=== PATIENT | female | born 1965 | race Caucasian/White ===

== ENCOUNTER → 2016-09-20 | Day surgery (SDC) | payer BC ==
[2016-09-15 07:42] VITALS: Ht 165.1 cm; Wt 109.1 kg
[~2016-09-20] VITALS: Ht 165.1 cm; Wt 109.1 kg
[~2016-09-20] MED LIST: ADVIN50050 INH; ALBU1AER9 INH; ALBUTEROL 0.083% NEBU SOLN 3 ML VIAL INH STA; AMPH1TAB58 PO; ARIP1TAB8 PO; ATOR-22 PO; ATV/1 PO; CHOL20007 PO; CINN1CAP2 PO; CYM/30 PO; DULO60CA44 PO; GABA-113 PO; GLC/500 PO; KETAMINE HCL INJ 50 MG/ML 10 ML VIAL ONE; LABETALOL HCL IV 5 MG/ML 20ML ONE; LIDOCAINE HCL 2% 2 ML VIAL (20MG/ML) ONE; LVX100 PO; MECL1TAB42 PO; MEDR10TA PO; MELO15TA10 PO; MIDAZOLAM HCL 1 MG/ML 2ML VIAL ONE; MOME50SP5; NXM/40 PO; ONDANSETRON INJ 2 MG/ML 2 ML VIAL ONE; OXYM10TA6 PO; OXYM1TAB25 PO; PROPOFOL IV EMULSION 10 MG/ML 20 ML VIAL IV ONE; QUET1TAB91 PO; RANI300T2 PO; SODIUM CHLORIDE 0.9% 500ML 500 ML IV ONE; SODIUM CHLORIDE 0.9% INJ 10 ML VIAL ONE; TRMO2580 TOP; ZOLP10TA6 PO
--- NOTE | 2016-09-20 13:13 | Endo History and Physical ---
History & Physical Date of Service: Sep 20, 2016. Chief Complaint: IRON DEFICIENCY ANEMIA Referring Physician: DR. LISS GONZALEZ History of Present Illness RENATE for EGD/Colon Past Medical History Diabetes, Asthma, Anxiety, Reflux, Other, Depression Past Surgical History Hx Cardiac Surgery: No Hx Internal Defibrillator: No Hx Pacemaker: No Hx Abdominal Surgery: Yes (JONES, TUBAL LIGATION) Hx of Implantable Prosthesis: No Hx Post-Op Nausea and Vomiting: Yes Hx Cancer Surgery: No Hx Thoracic Surgery: No Hx Orthopedic: Yes (LEFT SHOULDER ARTHROSCOPY, CERVICAL DISCECTOMY) Hx Urinary Tract Surgery: Yes (LITHOTRIPSY) Family History None Social History Smoking Status: Never Smoker Hx Substance Use: No (SEE MED REC) Hx Alcohol Use: Yes (VERY RARELY) Allergies Coded Allergies: Fentanyl (Verified Allergy, Severe, SHORTNESS OF BREATH WITH PATCH-, ) 06/10/15: Pharmacist comment: is this an allergy or resp depression from excessive dose? Note-pt received fentanyl with 06/10/15 surgery without problem. aj [place] (Verified Allergy, Unknown, SWELLING, 09/20/16) Ragweed (Verified Allergy, Unknown, SEASONAL ALLERGIES, 09/20/16) Current Medications Reported Home Medications Medications Dose Route/Sig Max Daily Dose Days Date Category Dose Instructions Triamcinolone Acet 0.025% (Triamcinolone Acetonide (Topic) 0.025 % Oin 1 Appln TOP BID PRN 09/15/16 Reported Zantac (Ranitidine HCl) 300 Mg Tab 300 Mg PO HS 09/15/16 Reported Seroquel (Quetiapine Fumarate) 25 Mg Tab 3 Tab PO HS 09/15/16 Reported Opana Er (Crush Resistant (Oxymorphone Hcl) 20 Mg Tab 1 Tab PO Q12 09/15/16 Reported Opana (Oxymorphone Hcl) 10 Mg Tab 1 Tab PO Q6H PRN 09/15/16 Reported Mobic (Meloxicam) 15 Mg Tab 15 Mg PO DAILY 09/15/16 Reported Cymbalta (Duloxetine HCl) 30 Mg Cap 1 Cap PO DAILY 30 09/15/16 Reported Cymbalta (Duloxetine Hcl) 60 Mg Cap 60 Mg PO DAILY 09/15/16 Reported Adderall 5MG (Amphetamine-Dextroamphetamine 5MG) 1 Tab Tab 1 Tab PO BID 30 08/30/16 Reported Lipitor (Atorvastatin Calcium) 20 Mg Tab 1 Tab PO HS 30 05/12/16 Reported Vitamin D3 (Cholecalciferol) 2,000 Unit Tab 1 Tab PO WEEKLY 30 03/02/16 Reported Provera (Medroxyprogesterone Acetate) 10 Mg Tab 10 Mg PO DAILY X 12 DAYS 03/02/16 Reported TAKE EVERY OTHER MONTH Fluvoxamine Maleate 100 Mg Tab 150 Mg PO HS 06/01/15 Reported TAKES 1 1/2 TABS Cinnamon 500 Mg Cap 2 Cap PO DAILY 06/01/15 Reported Meclizine Hcl 25 Mg Tab 1 Tab PO TID PRN 01/11/15 Reported Abilify (Aripiprazole) 10 Mg Tab 1.5 Tabs PO QAM 01/11/15 Reported Zolpidem Tartrate 10 Mg Tab 1 Tab PO HS 01/11/15 Reported Glucophage (Metformin Hcl) 500 Mg Tab 1,000 Mg PO BID 01/11/15 Reported Neurontin (Gabapentin) 300 Mg Cap 600 Mg PO TID 01/11/15 Reported Proair Hfa (Albuterol) Aers 1-2 Puff INH Q4 PRN 01/11/15 Reported Nasonex (Mometasone Furoate) [place] 1 [place] NA DAILY PRN 01/11/15 Reported Ativan (Lorazepam) 1 Mg Tab 1 Mg PO TID PRN 01/02/12 Reported Advair Diskus 500/50 Mcg * (Salmeterol Xinafoate/Fluticasone) Aerp 1 Puff INH BID 06/30/10 Reported Nexium (Esomeprazole Magnesium) 40 Mg Capcr 40 Mg PO QAM 06/30/10 Reported Vital Signs Weight (Kilograms): 109.09 Height (Feet): 5 Height (Inches): 5 Date Time Temp Pulse Resp B/P Pulse Ox O2 Delivery O2 Flow Rate FiO2 09/20/16 12:48 36.8 106 20 145/76 95 Room Air 0 Physical Exam AAO x3 Nl s1s2 Lungs CTA Abd soft NT/ND + BS - CCE Assessment and Plan AAO x3 Nl s1s2 Lungs CTA Abd soft NT/ND + BS - CCE for EGD and colon today
--- NOTE | 2016-09-20 13:29 | GI REPORT ---
Procedure Date: 09/20/2016 12:46 PM Procedure: Upper GI endoscopy Indications: Iron deficiency anemia Medicines: Propofol per Anesthesia Complications: No immediate complications. Estimated blood loss: Minimal. Estimated Blood Loss: Estimated blood loss was minimal. Procedure: Pre-Anesthesia Assessment: - Prior to the procedure, a History and Physical was performed, and patient medications and allergies were reviewed. The patient's tolerance of previous anesthesia was also reviewed. The risks and benefits of the procedure and the sedation options and risks were discussed with the patient. All questions were answered, and informed consent was obtained. Prior Anticoagulants: The patient has taken no previous anticoagulant or antiplatelet agents. ASA Grade Assessment: III - A patient with severe systemic disease. After reviewing the risks and benefits, the patient was deemed in satisfactory condition to undergo the procedure. After obtaining informed consent, the endoscope was passed under direct vision. Throughout the procedure, the patient's blood pressure, pulse, and oxygen saturations were monitored continuously. The On-site loaner was introduced through the mouth, and advanced to the third part of duodenum. The upper GI endoscopy was accomplished without difficulty. The patient tolerated the procedure well. Findings: The examined esophagus was normal. The Z-line was irregular and was found 40 cm from the incisors. Localized mildly erythematous mucosa without bleeding was found in the gastric antrum. Estimated blood loss was minimal. Verification of patient identification for the specimen was done by the physician and atm technician using the patient's name and medical record number. The examined duodenum was normal. Biopsies for histology were taken with a cold forceps for evaluation of celiac disease. Estimated blood loss was minimal. Verification of patient identification for the specimen was done by the physician and atm technician using the patient's name and medical record number. The cardia and gastric fundus were normal on retroflexion. A small amount of food (residue) was found in the gastric body. Impression: - Normal esophagus. - Z-line irregular, 40 cm from the incisors. - Erythematous mucosa in the antrum. - Normal examined duodenum. Biopsied. - A small amount of food (residue) in the stomach. Recommendation: - Discharge patient to home (ambulatory). MD Brad Wiggins MD 09/20/2016 1:27:58 PM This report has been signed electronically. Note Initiated On: 09/20/2016 12:46 PM
--- NOTE | 2016-09-20 13:54 | GI REPORT ---
Procedure Date: 09/20/2016 12:45 PM Procedure: Colonoscopy Indications: Iron deficiency anemia Medicines: Propofol per Anesthesia Complications: No immediate complications. Estimated blood loss: None. Estimated Blood Loss: Estimated blood loss: none. Procedure: Pre-Anesthesia Assessment: - Prior to the procedure, a History and Physical was performed, and patient medications and allergies were reviewed. The patient's tolerance of previous anesthesia was also reviewed. The risks and benefits of the procedure and the sedation options and risks were discussed with the patient. All questions were answered, and informed consent was obtained. Prior Anticoagulants: The patient has taken no previous anticoagulant or antiplatelet agents. ASA Grade Assessment: III - A patient with severe systemic disease. After reviewing the risks and benefits, the patient was deemed in satisfactory condition to undergo the procedure. After I obtained informed consent, the scope was passed under direct vision. Throughout the procedure, the patient's blood pressure, pulse, and oxygen saturations were monitored continuously. The On-site loaner was introduced through the anus and advanced to the terminal ileum, with identification of the appendiceal orifice and IC valve. The colonoscopy was performed without difficulty. The patient tolerated the procedure well. The quality of the bowel preparation was fair. Findings: The perianal and digital rectal examinations were normal. Pertinent negatives include normal sphincter tone, no palpable rectal lesions and no anal lesion or abnormality was detected. The colon (entire examined portion) appeared normal. The terminal ileum appeared normal. The retroflexed view of the distal rectum and anal verge was normal and showed no anal or rectal abnormalities. Impression: - The entire examined colon is normal. - The examined portion of the ileum was normal. - The distal rectum and anal verge are normal on retroflexion view. - No specimens collected. Recommendation: - Discharge patient to home (ambulatory). - To visualize the small bowel, consider perform video capsule endoscopy. - Return to referring physician as previously scheduled. MD Brad Wiggins MD 09/20/2016 1:54:12 PM This report has been signed electronically. Note Initiated On: 09/20/2016 12:45 PM
--- NOTE | 2016-09-20 13:58 | Discharge Instructions ---
Endoscopy Patient Instructions Date / Procedure(s) Performed Sep 20, 2016. Colonoscopy, EGD Allergy Information Coded Allergies: Fentanyl (Verified Allergy, Severe, SHORTNESS OF BREATH WITH PATCH-, ) 06/10/15: Pharmacist comment: is this an allergy or resp depression from excessive dose? Note-pt received fentanyl with 06/10/15 surgery without problem. aj [place] (Verified Allergy, Unknown, SWELLING, 09/20/16) Ragweed (Verified Allergy, Unknown, SEASONAL ALLERGIES, 09/20/16) Discharge Date / Findings Sep 20, 2016. gastritis normal colon stephani Medication Instructions Stopped Medication(s): ADDERAL LAST DOSE 09/15/16 METFORM LAST DOSE 09/15/16 Restart Stopped Medication(s): Reported Home Medications Medications Dose Route/Sig Max Daily Dose Days Date Category Dose Instructions Triamcinolone Acet 0.025% (Triamcinolone Acetonide (Topic) 0.025 % Oin 1 Appln TOP BID PRN 09/15/16 Reported Zantac (Ranitidine HCl) 300 Mg Tab 300 Mg PO HS 09/15/16 Reported Seroquel (Quetiapine Fumarate) 25 Mg Tab 3 Tab PO HS 09/15/16 Reported Opana Er (Crush Resistant (Oxymorphone Hcl) 20 Mg Tab 1 Tab PO Q12 09/15/16 Reported Opana (Oxymorphone Hcl) 10 Mg Tab 1 Tab PO Q6H PRN 09/15/16 Reported Mobic (Meloxicam) 15 Mg Tab 15 Mg PO DAILY 09/15/16 Reported Cymbalta (Duloxetine HCl) 30 Mg Cap 1 Cap PO DAILY 30 09/15/16 Reported Cymbalta (Duloxetine Hcl) 60 Mg Cap 60 Mg PO DAILY 09/15/16 Reported Adderall 5MG (Amphetamine-Dextroamphetamine 5MG) 1 Tab Tab 1 Tab PO BID 30 08/30/16 Reported Lipitor (Atorvastatin Calcium) 20 Mg Tab 1 Tab PO HS 30 05/12/16 Reported Vitamin D3 (Cholecalciferol) 2,000 Unit Tab 1 Tab PO WEEKLY 30 03/02/16 Reported Provera (Medroxyprogesterone Acetate) 10 Mg Tab 10 Mg PO DAILY X 12 DAYS 03/02/16 Reported TAKE EVERY OTHER MONTH Fluvoxamine Maleate 100 Mg Tab 150 Mg PO HS 06/01/15 Reported TAKES 1 1/2 TABS Cinnamon 500 Mg Cap 2 Cap PO DAILY 06/01/15 Reported Meclizine Hcl 25 Mg Tab 1 Tab PO TID PRN 01/11/15 Reported Abilify (Aripiprazole) 10 Mg Tab 1.5 Tabs PO QAM 01/11/15 Reported Zolpidem Tartrate 10 Mg Tab 1 Tab PO HS 01/11/15 Reported Glucophage (Metformin Hcl) 500 Mg Tab 1,000 Mg PO BID 01/11/15 Reported Neurontin (Gabapentin) 300 Mg Cap 600 Mg PO TID 01/11/15 Reported Proair Hfa (Albuterol) Aers 1-2 Puff INH Q4 PRN 01/11/15 Reported Nasonex (Mometasone Furoate) [place] 1 [place] NA DAILY PRN 01/11/15 Reported Ativan (Lorazepam) 1 Mg Tab 1 Mg PO TID PRN 01/02/12 Reported Advair Diskus 500/50 Mcg * (Salmeterol Xinafoate/Fluticasone) Aerp 1 Puff INH BID 06/30/10 Reported Nexium (Esomeprazole Magnesium) 40 Mg Capcr 40 Mg PO QAM 06/30/10 Reported Reported Home Medications Medications Dose Route/Sig Max Daily Dose Days Date Category Dose Instructions Triamcinolone Acet 0.025% (Triamcinolone Acetonide (Topic) 0.025 % Oin 1 Appln TOP BID PRN 09/15/16 Reported Zantac (Ranitidine HCl) 300 Mg Tab 300 Mg PO HS 09/15/16 Reported Seroquel (Quetiapine Fumarate) 25 Mg Tab 3 Tab PO HS 09/15/16 Reported Opana Er (Crush Resistant (Oxymorphone Hcl) 20 Mg Tab 1 Tab PO Q12 09/15/16 Reported Opana (Oxymorphone Hcl) 10 Mg Tab 1 Tab PO Q6H PRN 09/15/16 Reported Mobic (Meloxicam) 15 Mg Tab 15 Mg PO DAILY 09/15/16 Reported Cymbalta (Duloxetine HCl) 30 Mg Cap 1 Cap PO DAILY 30 09/15/16 Reported Cymbalta (Duloxetine Hcl) 60 Mg Cap 60 Mg PO DAILY 09/15/16 Reported Adderall 5MG (Amphetamine-Dextroamphetamine 5MG) 1 Tab Tab 1 Tab PO BID 30 08/30/16 Reported Lipitor (Atorvastatin Calcium) 20 Mg Tab 1 Tab PO HS 30 05/12/16 Reported Vitamin D3 (Cholecalciferol) 2,000 Unit Tab 1 Tab PO WEEKLY 30 03/02/16 Reported Provera (Medroxyprogesterone Acetate) 10 Mg Tab 10 Mg PO DAILY X 12 DAYS 03/02/16 Reported TAKE EVERY OTHER MONTH Fluvoxamine Maleate 100 Mg Tab 150 Mg PO HS 06/01/15 Reported TAKES 1 1/2 TABS Cinnamon 500 Mg Cap 2 Cap PO DAILY 06/01/15 Reported Meclizine Hcl 25 Mg Tab 1 Tab PO TID PRN 01/11/15 Reported Abilify (Aripiprazole) 10 Mg Tab 1.5 Tabs PO QAM 01/11/15 Reported Zolpidem Tartrate 10 Mg Tab 1 Tab PO HS 01/11/15 Reported Glucophage (Metformin Hcl) 500 Mg Tab 1,000 Mg PO BID 01/11/15 Reported Neurontin (Gabapentin) 300 Mg Cap 600 Mg PO TID 01/11/15 Reported Proair Hfa (Albuterol) Aers 1-2 Puff INH Q4 PRN 01/11/15 Reported Nasonex (Mometasone Furoate) [place] 1 [place] NA DAILY PRN 01/11/15 Reported Ativan (Lorazepam) 1 Mg Tab 1 Mg PO TID PRN 01/02/12 Reported Advair Diskus 500/50 Mcg * (Salmeterol Xinafoate/Fluticasone) Aerp 1 Puff INH BID 06/30/10 Reported Nexium (Esomeprazole Magnesium) 40 Mg Capcr 40 Mg PO QAM 06/30/10 Reported Provider Instructions Activity Restrictions - No exercising or heavy lifting for 24 hours. - Do not drink alcohol the day of the procedure. - Do not drive a car or operate machinery until the day after the procedure. - Do not make any important decisions or sign important papers in 24 hours after the procedure. Following Day: - Return to full activity which may include returning to work/school. Diet Start your diet with liquids and light foods (jello, soup, juice, toast). Then eat your usual diet if not nauseated. Treatment For Common After Affects For mild abdominal pain, bloating, or excessive gas: - Rest - Eat lightly - Lie on right side Follow-Up Information Follow-up with DR. LISS GONZALEZ as scheduled Anesthesia Information What You Should Know You have had a procedure that required some medicine to reduce anxiety and discomfort. This treatment is called moderate sedation. After receiving the treatment, you may be sleepy, but you will be able to breathe on your own. The effects of the treatment may last for several hours. Follow these instructions along with Activity/Diet recommendations noted above: * Do NOT do anything where dizziness or clumsiness would be dangerous. * Rest quietly at home today, then you can be up and about tomorrow. * Have a responsible person stay with you the rest of today. * You may have had an I.V. today. If so, you may take the dressing off later today. Recommendations Call your doctor if: * Trouble breathing * Continuous vomiting for more than 24 hours * Temperature above 101 degrees * Severe abdominal pain or bloating * Pain not relieved by pain medicine ordered * There is increased drainage or redness from any incision * A large amount of rectal bleeding greater than 2-3 tablespoons. (If you had a polyp/s removed or have hemorrhoids, a small amount of blood - from the rectum is to be expected.) * You have any unanswered questions or concerns. IN THE EVENT OF A SERIOUS EMERGENCY, GO TO THE NEAREST EMERGENCY ROOM Your discharge instructions were prepared by provider Brad Vicente. Patient Instructions Signature Page Katarina Jain Patient (or Guardian) Signature/Date: I have read and understand the instructions given to me by my caregivers. Caregiver/RN/Doctor Signature/Date: The above-named patient and/or guardian has received patient instructions on this date. + Original Patient Signature Page (only) stays with chart. Please make copy for patient.
[2016-09-20 15:20] VITALS: PULSE 90; O2SAT 90
--- NOTE | 2016-09-20 17:13 | Anesthesiology Progress Note ---
Anesthesia Post Op Note Date & Time Sep 20, 2016 at 16:46 Vital Signs Pain Intensity: 0 Vital Signs Past 12 Hours Date Time Temp Pulse Resp B/P Pulse Ox O2 Delivery O2 Flow Rate FiO2 09/20/16 16:20 36.8 92 18 131/62 91 Room Air 09/20/16 16:00 86 18 136/63 90 Room Air 09/20/16 15:30 89 18 131/63 92 Room Air 09/20/16 15:20 90 16 90 Room Air 09/20/16 15:00 36.8 89 18 130/64 4 Nasal Cannula 3 09/20/16 14:40 89 18 137/63 96 Nasal Cannula 3 09/20/16 14:25 86 18 137/63 88 Room Air 09/20/16 14:11 36.8 88 18 163/89 98 Room Air 0 09/20/16 13:56 94 18 157/82 98 Room Air 0 09/20/16 12:48 36.8 106 20 145/76 95 Room Air 0 Notes Mental Status: alert / awake / arousable, participated in evaluation Pt Amnestic to Procedure: Yes Nausea / Vomiting: adequately controlled Pain: adequately controlled Airway Patency, RR, SpO2: stable & adequate BP & HR: stable & adequate Hydration State: stable & adequate Anesthetic Complications: no major complications apparent The patient is a 51 y/o female with a h/o Asthma, GERD, IBS, OA, cervicalgia, chairi malformation, chronic pain with limited mobility, DM, anemia, obesity, anxiety and depression s/p EGD/colonoscopy with Dr. Vicente. The patient's baseline oxygen saturation preop was 95% on RA. During the procedure she did well overall although she did obstruct during the EGD requiring some jaw thrust. In recovery, she initially required 3Lnc to maintain her oxygen saturation as she would desaturate to the low 80s without it. Her lungs were clear to auscultation bilaterally and she denied any shortness of breath, however she appears to be a shallow breather. Once she was encourage to take deep breaths her oxygen saturation would immediately improve to the mid 90s. She was given a Duoneb due to her history of Asthma as well as an incentive spirometer. She was able to achieve 1750cc on the spirometer. The patient was weaned off of oxygen. Her saturation when awake is staying between 90-95%, however occasionally she will drop precipitously to the low 80s. Her saturation will immediately improve with deep breathing. When she falls asleep her oxygen saturation again drops to the 80s. In speaking to her family they state that she snores when she sleeps. She also has a hard time staying asleep and does not get very much sleep at all and is often lethargic all day. I explained to the patient that looking at her airway anatomy and how she responded to anesthesia that I believe she likely does have some sleep apnea. I spoke to Dr. Pope with the internal medicine service and he will be coming to evaluate the patient. He may have the patient stay overnight to monitor her oxygen saturation and perform a sleep study. I mentioned this to the patient and her family and they were agreeable. Dr. Aponte was given a full report and will be following up with the patient Dr. Pope when he comes to the bedside to evaluate the patient.
--- NOTE | 2016-09-20 18:04 | Anesthesiology Progress Note ---
Anesthesia Progress Note Date of Service Sep 20, 2016. Progress Notes I have received report from Dr Jackelin Feliz regarding this patient. Patient is awake;pulse oximetry saturations are up to 96% on RA,as I have observed.Pt has ambulated to [facility] .Vital signs are stable.Pt may be discharged to home.
[2016-09-20 18:10] VITALS: BP 138/68; PULSE 88; TEMP 36.8; O2SAT 96
== END | disposition home or self-care (01) ==
LOC: C.GI 12:08
PROVIDERS: ATTEND Internal Medicine Gastroenterology
DX: D50.9 Iron deficiency anemia, unspecified (principal); E11.9 Type 2 diabetes mellitus without complications; J45.909 Unspecified asthma, uncomplicated; F32.9 Major depressive disorder, single episode, unspecified; Z98.51 Tubal ligation status; Z98.890 Other specified postprocedural states; F41.9 Anxiety disorder, unspecified; Z68.41 Body mass index [BMI] 40.0-44.9, adult; Z90.49 Acquired absence of other specified parts of digestive tract

== ENCOUNTER → 2016-10-02 | Outpatient (CLI) | payer BC ==
[~2016-10-02] MED LIST changes: -ALBUTEROL 0.083% NEBU SOLN 3 ML VIAL INH STA; -KETAMINE HCL INJ 50 MG/ML 10 ML VIAL ONE; -LABETALOL HCL IV 5 MG/ML 20ML ONE; -LIDOCAINE HCL 2% 2 ML VIAL (20MG/ML) ONE; -MIDAZOLAM HCL 1 MG/ML 2ML VIAL ONE; -ONDANSETRON INJ 2 MG/ML 2 ML VIAL ONE; -PROPOFOL IV EMULSION 10 MG/ML 20 ML VIAL IV ONE; -SODIUM CHLORIDE 0.9% 500ML 500 ML IV ONE; -SODIUM CHLORIDE 0.9% INJ 10 ML VIAL ONE
[2016-10-02 17:28] LABS: BASO % 0.4 %; BASO ABS # 0.04 K/uL (0-0.2); COMPLETE YES; EOS % 3.4 %; HEMATOCRIT 33.2 % (37-47); IG% 0.2 %; LYMPH % 27.7 %; LYMPH ABS # 2.72 K/uL (1.2-3.4); MEAN CORPUSCULAR HEMOGLOBIN 26.9 pg (25-34); MEAN CORPUSCULAR HGB CONC 32.8 g/dl (32-36); MEAN PLATELET VOLUME 9.1 fL (7.4-10.4); MONO % 5.7 %; NEUT % 62.6 %; PLATELET COUNT 268 K/uL (130-400); RED BLOOD COUNT 4.05 M/uL (4.2-5.4); WHITE BLOOD COUNT 9.83 K/uL (4.8-10.8)
== END | disposition home or self-care (01) ==
LOC: C.LABBFT 12:56
PROVIDERS: ATTEND Nurse Practitioner
DX: D72.829 Elevated white blood cell count, unspecified (principal)

== ENCOUNTER → 2016-12-08 | Outpatient (CLI) | payer BC ==
[~2016-12-08] VITALS: Ht 165.1 cm; Wt 111.8 kg
[2016-12-08 15:39] VITALS: BP 121/85; PULSE 111; Ht 165.1 cm; Wt 111.8 kg
== END | disposition home or self-care (01) ==
LOC: C.NEUR 14:26
PROVIDERS: ATTEND Internal Medicine Pulmonary Disease
DX: R09.02 Hypoxemia (principal); Z98.890 Other specified postprocedural states; R06.83 Snoring; R53.83 Other fatigue; G47.21 Circadian rhythm sleep disorder, delayed sleep phase type

== ENCOUNTER → 2017-01-23 | Outpatient (CLI) | payer BC ==
--- NOTE | 2017-01-23 16:01 | SPLIT NIGHT TECHNICIAN REPORT ---
[facility] Split Night Polysomnogram - Shove Up Report Study date: 01/23/2017 Referring Physician: aSrath Coombs M.D. Name: ZAY ARCHULETA Shove Up: Temitope Gray [facility]. Date of : 1965 Height: 52 years, Height 5' 5" Sex: Female Weight: 246 lbs Age: 52 Neck Circum:16.5 in BMI: Medications: 40.93 Please see list in H&P Patient History Patient has a history of being tired all the time and not sleeping well. She stated that she has a lot of medical problems and she spends most of the day in bed. She has been told that she snores, but no apnea has been reported. She sleeps the most when her gets home from work at 7am. They usually sleep from 8am until 2pm. She had a colonoscopy done and during the procedure, her SaO2 dropped many times. Varney Sleepiness Scale is 5. neck circumference is 16.5 inches Parameters Monitored NPSG: E1-M2, E2-M1, Fp1-M2, Fp2-M1, F3-M2, F4-M2, F4-M1, C3-M2, C4-M2, C4-M1, O1-M2, O2-M2, O2-M1, T3-M2, T4-M1, P3-M2, P4-M1, CHIN1, CHIN2, HR, EKG, Legs, PFLOW, SNOR, FLOW, CFLOW, Tidal Volume, THOR, ABDO, SpO2, PLTH, CPRESS, ETCO2 Wave, ETCO2, pH SLEEP SUMMARY DATA DIAGNOSTIC TREATMENT Lights Out: 7:57:58 AM 10:34:28 AM Lights On: 10:19:58 AM 3:14:58 PM Total Recording Time (TRT): 142.5 min. 281.5 min. Total Sleep Time (TST): 130.5 min. 268.5 min. NREM Time: 130.5 min. 243.5 min. REM Time: 0.0 min. 25.0 min. Sleep Period Time (SPT): 135.5 min. 278.0 min. Sleep Efficiency (SE): 92 % 96 % Sleep Latency: 6.0 min. 2.5 min. Arousal Index: 0.5 2.0 PAP Treatment Levels: 5, 7, 9, 10, 8/4, 10/5, 12/6, 14/8, 15/10, 16/10, 17/12 * Optimal Pressure(s) SLEEP STAGING DATA DIAGNOSTIC TREATMENT Duration (min) TST % Duration (min) TST % Stage Wake: 12.0 min. -- 12.5 min. -- WASO: 5.5 min. -- 9.5 min. -- NREM: 130.5 min. 100 % 243.5 min. 91 % Stage N1: 14.5 min. 11 % 12.5 min. 5 % Stage N2: 116.0 min. 89 % 200.0 min. 74 % Stage N3: 0.0 min. 0 % 31.0 min. 12 % REM: 0.0 min. 0 % 25.0 min. 9 % POSITIONAL DATA Event Count Index Event Count Index Supine: N/A N/A N/A N/A Supine NREM: N/A N/A N/A N/A Supine REM: N/A N/A N/A N/A Non-Supine: 205 94.3 273 61.0 Non-Supine NREM: 205 94.3 263 64.8 Non-Supine REM: N/A N/A 10 24.0 AROUSAL SUMMARY DATA: Event Count Index Event Count Index Apnea Arousals: 1 64.4 0 22.1 Hypopnea Arousals: 0 0.0 1 0.2 Snore Arousals: 0 0.0 1 0.2 PLM Arousals: 0 0.0 0 0.0 Non-Specific Arousals: 0 0.0 6 1.3 Total Arousals: 1 0.5 9 2.0 MYOCLONUS (PLM) Event Count Index Event Count Index PLM: 0 0.0 23 5.1 PLM AROUSAL: 0 0.0 0 0.0 PLM W/O AROUSAL 0 0.0 23 5.1 PLM W/RESP EVENT 0 0.0 0 0.0 MYOCLONUS (PLM) Event Count Index Event Count Index LM: 0 17.0 78 17.4 LM AROUSAL: 0 0.0 1 0.2 LM W/O AROUSAL LM W/RESP EVENT LM NON SPECIFIC 35 16.1 90 20.1 HEART RATE DATA DIAGNOSTIC TREATMENT Sleep (bpm): 103 98 REM (bpm): N/A 89 NREM (bpm): 86 90 Tachycardia Count: 0 0 Tachycardia Duration: 0.00 0 Bradycardia Count: 0 0 Bradycardia Duration: 0.00 0 DIAGNOSTIC PORTION TREATMENT PORTION RESPIRATORY DATA Event Count Index Event Count Index AHI: -- 94.3 -- 61.0 RDI: -- 94.3 -- 61 Obstructive Apnea: 12 5.5 4 0.9 Central Apnea: 109 50.1 65 14.5 Mixed Apnea: 19 8.7 30 6.7 Hypopnea: 65 29.9 174 38.9 RERA: 0 0.0 0 0.0 Total Apneas: 140 64.4 99 22.1 RESPIRATORY DATA REM NREM SLEEP REM NREM SLEEP Supine Position: Obstructive Apneas: N/A N/A N/A N/A N/A N/A Central Apneas: N/A N/A N/A N/A N/A N/A Mixed Apneas: N/A N/A N/A N/A N/A N/A Hypopneas: N/A N/A N/A N/A N/A N/A RERA N/A N/A N/A N/A N/A N/A Total Supine Events: N/A N/A N/A N/A N/A N/A Supine AHI: N/A N/A N/A N/A N/A N/A Supine RDI: N/A N/A N/A N/A N/A N/A REM NREM SLEEP REM NREM SLEEP Non-Supine Position: Obstructive Apneas: N/A 12 12 0 4 4 Central Apneas: N/A 109 109 5 60 65 Mixed Apneas: N/A 19 19 0 30 30 Hypopneas: N/A 65 65 5 169 174 RERA N/A 0 0 0 0 0 Total Supine Events: N/A 205 205 10 263 273 Supine AHI: N/A 94.3 94.3 24.0 64.8 61.0 Supine RDI: N/A 94.3 94.3 24.0 64.8 61.0 OXYGEN DESTAURATION DATA: Event Count Index Event Count Index REM Desaturations: N/A N/A 15 36.0 NREM Desaturations: 423 194.5 405 99.8 SNORE DATA DIAGNOSTIC TREATMENT Snore Time: 12.1 10:36:58 AM Snore TST%: 5 1 Snore Arousal Count: 0 1 Snore Arousal Index: 0.0 0.2 Desaturation Event Summary: Minimum %SpO2 Event Count Mean/Min/Max Duration(sec.) Desaturation Index % Time In Bed > 90 553 10.6 / 4.0 / 45.5 272.3 28.9 86 - 90 586 9.3 / 4.0 / 46.5 167.7 49.7 81 - 85 78 8.6 / 4.0 / 43.0 58.7 18.9 76 - 80 4 5.2 / 5.0 / 5.5 22.0 2.6 71 - 75 0 N/A 0.0 0.0 66 - 70 0 N/A 0.0 0.0 61 - 65 0 N/A 0.0 0.0 56 - 60 0 N/A 0.0 0.0 51 - 55 0 N/A 0.0 0.0 < 50 0 N/A 0.0 0.0 OXYGEN SATURATION DATA DIAGNOSTIC TREATMENT SpO2 Mean Sleep: 86 % 90 % SpO2 Mean REM: N/A % 89 % SpO2 Mean NREM: 86 % 90 % SpO2 Minimum Sleep: 74 % 76 % SpO2 Minimum REM: N/A % 77 % SpO2 Minimum NREM: 74 % 76 % Time Below 90% (TST): 108.9 108.7 Time Below 88% (TST): 88.9 46.0 Total REM NREM Awake <50% 0.0 min. 0.0 min. 0.0 min. 0.0 min. 51 - 60% 0.0 min. 0.0 min. 0.0 min. 0.0 min. 61 - 70% 0.0 min. 0.0 min. 0.0 min. 0.0 min. 71 - 80% 11.0 min. 0.4 min. 10.2 min. 0.4 min. 81 - 90% 289.4 min. 20.1 min. 252.9 min. 16.5 min. 91 - 100% 121.9 min. 4.6 min. 110.9 min. 6.4 min. Average 88 89 88 88 Minimum SpO2 74 77 74 78 Desaturation Event Index 119.7 36.0 132.8 7.7 # Desat. Events below 89% 825 15 810 0 Time(%) with Saturation below 89% 42.4 2.2 37.3 2.9 Time(min.) with Saturation below 89% 179.1 9.4 157.5 12.2 Recording Shove Up Comments: Ms. Archuleta slept on her right side the entire study. No bruxism or arrhythmias were noted. Snoring was scored as a 3 (on a scale of 0-5, where 0=no snoring to 5= snoring loud enough to be heard through the door or down the syed). Patient had central apneas as soon as she fell asleep, which was very quickly. By 10:15am, Ms. Archuleta met specific Split-Night criteria during the diagnostic portion of study. C-pap was started at a pressure of +5cmH2O and up-titrated to a pressure of +[id number], she continued to have near constant central or mixed apneas. Bi-pap was then tried, starting at a pressure of +8/4 and up-titrated to a pressure of +17/12 with a rate of 12 being added at 11:49am to help treat central apneas. Patient tolerated treatment very well, but still continued to have events, even on the high pressure of +17/12 and rate of 12. I did not feel as if patient would be able to tolerate a much higher pressure and she seemed to sleep well at this pressure and her SaO2 remained around 90% most of the time at these settings. She entered REM quickly, once treatment was initiated and also entered deep sleep at the end of the study. She had the least amount of events during those 2 stages of sleep. Patient may also benefit from supplemental O2. During her most stable times, her SaO2 ran around 90%. A Resmed AirFit F10 full face mask size medium was used during titration. Ms. Archuleta stated "I slept better than I normally do." The final report will be interpreted and signed by a sleep physician. The completed physician report will then be placed in the patient medical record. Therapy Event: Therapy (cm H20) 0 5 7 9 10 8/4 Total Time at Pressure (min.) 142.0 9.8 8.1 11.8 25.9 13.7 TST at Pressure (min.) 130.5 7.3 8.1 11.8 25.9 13.7 # Periods 1 1 1 1 1 1 Sleep Onset (min.) 6.0 2.5 0.0 0.0 0.0 0.0 REM Onset (min.) N/A N/A N/A N/A 13.8 0.0 Sleep Efficiency % 91 74 100 100 100 100 Wakefulness (%) 8.1 25.6 0.0 0.0 0.0 0.0 Wakefulness (min.) 11.5 2.5 0.0 0.0 0.0 0.0 NREM 1 (%) 10.2 28.3 9.1 0.0 7.7 5.5 NREM 1 (min.) 14.5 2.8 0.7 0.0 2.0 0.8 NREM 2 (%) 81.7 46.1 90.9 100.0 45.5 0.0 NREM 2 (min.) 116.0 4.5 7.4 11.8 11.8 0.0 NREM 3 (%) 0.0 0.0 0.0 0.0 0.0 0.0 NREM 3 (min.) 0.0 0.0 0.0 0.0 0.0 0.0 REM (%) 0.0 0.0 0.0 0.0 46.7 94.5 REM (min.) 0.0 0.0 0.0 0.0 12.1 12.9 # Arousals 1 1 0 0 1 0 Arousal Index 0.5 8.3 0.0 0.0 2.3 0.0 # Snore 581 3 5 8 5 1 Snore Index 267.1 24.8 37.0 40.5 11.6 4.4 AHI 94.3 157.0 184.8 162.0 74.3 35.1 AHI Supine N/A N/A N/A N/A N/A N/A AHI Non-Supine 94.3 157.0 184.8 162.0 74.3 35.1 NREM AHI 94.3 157.0 184.8 162.0 130.7 0.0 REM AHI N/A N/A N/A N/A 9.9 37.2 RDI 94.3 157.0 184.8 162.0 74.3 35.1 # Obstructive 12 0 1 1 2 0 # Central Ap 109 12 12 16 16 3 # Mixed 19 2 11 12 4 0 # Hypopneas 65 5 1 3 10 5 RERAS 0 0 0 0 0 0 Total Respiratory Events 205 19 25 32 32 8 Time Below SpO2 89.00% (min.) 98.9 3.3 3.1 3.7 5.6 7.2 Mean NREM SpO2 (%) 86 89 89 90 90 91 Mean REM SpO2 (%) N/A N/A N/A N/A 89 88 Mean Sleep SpO2 (%) 86 89 89 90 90 88 Min NREM SpO2 (%) 74 82 81 83 83 87 Min REM SpO2 (%) N/A N/A N/A N/A 77 77 Position Supine (min.) 0.0 0.0 0.0 0.0 0.0 0.0 Position Non-supine (min.) 130.5 7.3 8.1 11.8 25.9 13.7 LM Index Sleep 17.0 0.0 0.0 15.2 58.0 48.3 LM Index NREM 17.0 0.0 0.0 15.2 30.5 0.0 LM Index REM N/A N/A N/A N/A 89.4 51.1 Mean Heart Rate (bpm) 103 99 97 100 101 103 Min Heart Rate (bpm) 85 84 82 84 82 91 Therapy (cm H20) 10/5 12/6 14/8 15/10 16/10 17/12 Total Time at Pressure (min.) 13.0 21.3 9.8 26.2 17.2 123.8 TST at Pressure (min.) 12.5 21.3 9.8 20.2 17.2 120.8 # Periods 1 1 1 1 1 1 Sleep Onset (min.) 0.0 0.0 0.0 0.0 0.0 0.0 REM Onset (min.) N/A N/A N/A N/A N/A N/A Sleep Efficiency % 96 100 100 77 100 97 Wakefulness (%) 3.8 0.0 0.0 22.9 0.0 2.4 Wakefulness (min.) 0.5 0.0 0.0 6.0 0.0 3.0 NREM 1 (%) 9.6 0.0 0.0 7.6 0.0 2.4 NREM 1 (min.) 1.2 0.0 0.0 2.0 0.0 3.0 NREM 2 (%) 86.6 100.0 100.0 69.4 100.0 70.1 NREM 2 (min.) 11.3 21.3 9.8 18.2 17.2 86.8 NREM 3 (%) 0.0 0.0 0.0 0.0 0.0 25.0 NREM 3 (min.) 0.0 0.0 0.0 0.0 0.0 31.0 REM (%) 0.0 0.0 0.0 0.0 0.0 0.0 REM (min.) 0.0 0.0 0.0 0.0 0.0 0.0 # Arousals 1 0 0 1 0 5 Arousal Index 4.8 0.0 0.0 3.0 0.0 2.5 # Snore 9 16 4 20 2 16 Snore Index 43.2 45.0 24.5 59.5 7.0 7.9 AHI 163.2 140.7 85.7 101.2 34.9 7.5 AHI Supine N/A N/A N/A N/A N/A N/A AHI Non-Supine 163.2 140.7 85.7 101.2 34.9 7.5 NREM AHI 163.2 140.7 85.7 101.2 34.9 7.5 REM AHI N/A N/A N/A N/A N/A N/A RDI 163.2 140.7 85.7 101.2 34.9 7.5 # Obstructive 0 0 0 0 0 0 # Central Ap 6 0 0 0 0 0 # Mixed 1 0 0 0 0 0 # Hypopneas 27 50 14 34 10 15 RERAS 0 0 0 0 0 0 Total Respiratory Events 34 50 14 34 10 15 Time Below SpO2 89.00% (min.) 6.8 10.4 3.7 7.2 4.4 12.6 Mean NREM SpO2 (%) 87 88 89 89 90 90 Mean REM SpO2 (%) N/A N/A N/A N/A N/A N/A Mean Sleep SpO2 (%) 87 88 89 89 90 90 Min NREM SpO2 (%) 76 82 82 82 84 82 Min REM SpO2 (%) N/A N/A N/A N/A N/A N/A Position Supine (min.) 0.0 0.0 0.0 0.0 0.0 0.0 Position Non-supine (min.) 12.5 21.3 9.8 20.2 17.2 120.8 LM Index Sleep 4.8 14.1 30.6 20.8 17.4 19.4 LM Index NREM 4.8 14.1 30.6 20.8 17.4 19.4 LM Index REM N/A N/A N/A N/A N/A N/A Mean Heart Rate (bpm) 99 99 98 96 97 97 Min Heart Rate (bpm) 83 83 86 84 85 82
--- NOTE | 2017-01-24 16:44 | POLYSOMNOGRAPH REPORT ---
CLINICAL DATA: A 52-year-old female with BMI of 40.9 referred by myself and Dr. Webber. She has fatigue and poor quality sleep. She has multiple medical problems. She takes narcotics for chronic pain. She usually sleeps during the day when her gets home from work at 7 a.m. She does snore, but he has not reported apnea. She recently had colonoscopy and had severe desaturation intermittently. This was a split night study. SLEEP ARCHITECTURE: For the diagnostic portion of the study, total sleep period was 135.5 minutes. Total sleep time was 130.5 minutes, all non-REM sleep. Sleep latency was 6 minutes. Arousal index was 0.5. Sleep efficiency was 92%. Sleep consisted of stage N1 11%, N2 89%. For the treatment portion of the study, total sleep period was 278 minutes. Total sleep time was 268.5 minutes divided between 243.5 minutes of non-REM sleep and 25 minutes of REM sleep. Sleep onset latency was 2.5 minutes. Sleep efficiency was 96%. Arousal index was 2. Sleep consisted of Stage N1 5%, N2 74%, N3 12%, REM 9%. AROUSAL DATA: Prior to treatment 1 arousal was recorded for an index of 0.5 per hour. During treatment, 9 arousals were recorded for an index of 2 per hour. PLM DATA: Prior to treatment, 35 limb movements were noted for an index of 16.1 per hour. During treatment, 90 limb movements were noted for an index of 28.1 per hour. EKG: Heart rates ranged from 86 to 103 beats per minute. No arrhythmias were noted. RESPIRATORY DATA: Prior to treatment, very severe sleep apnea/hypopnea was documented. The AHI was 94.3. There were 12 obstructive, 109 central, and 12 mixed apneic episodes. There were 65 hypopneic episodes. The average AHI with treatment was 61. There were 4 obstructive, 65 central, and 30 mixed apneic episodes. There 174 hypopneic episodes. OXIMETRY DATA: Significant nocturnal hypoxemia was seen prior to treatment. Oxygen lesvia prior to treatment was 74% during non-REM sleep. The mean saturation for the treatment was 90%. RESIDENT CARE ASSISTANT'S COMMENTS AND TREATMENT SUMMARY: The patient slept on her right side the entire time. Snoring was moderate, rated 3 on a scale of 1 through 5. She had central apneic episodes as soon as she fell asleep. By 10:15 a.m. she met split night criteria. CPAP was started and titrated up to 10 cm of water pressure. However, she had constant central or mixed apneic episodes. BiPAP was tried starting with 8/4 and then titrating up to 17/12 with a backup rate of 12. She continued to have central apneic episodes even at that pressure setting and rate. The patient did not feel that she could tolerate a higher pressure and seemed to sleep well at the final pressure setting. A ResMed AirFit F10 full facemask size medium was used. She awoke feeling better than she normally does. At her final pressure setting of BiPAP 17/12 with a backup rate of 12, she had an AHI of 7.5. She slept at that level for 120.8 minutes. IMPRESSION: Very severe sleep apnea both central and obstructive consistent with complex/central sleep apnea with a diagnostic AHI of 94.3, improved with BiPAP 17/12, backup rate of 12 using a ResMed AirFit F10 full face mask, size medium. RECOMMENDATIONS: The ultimate treatment for central sleep apnea due to narcotics is reduction of narcotic dose. It is not clear whether that can be performed in this patient. She did do well with BiPAP 17/12 with a backup rate of 12. Treatment with this regimen may be of benefit. Clinical correlation is needed. MTDD
== END | disposition home or self-care (01) ==
LOC: C.NEUR 07:30
PROVIDERS: ATTEND Internal Medicine Pulmonary Disease
DX: G47.21 Circadian rhythm sleep disorder, delayed sleep phase type (principal); R53.83 Other fatigue; R09.02 Hypoxemia; R06.83 Snoring; Z98.890 Other specified postprocedural states; G47.33 Obstructive sleep apnea (adult) (pediatric)

== ENCOUNTER → 2017-01-30 | Outpatient (CLI) | payer BC ==
[~2017-01-30] VITALS: Ht 165.1 cm; Wt 115.1 kg
[2017-01-30 16:13] VITALS: BP 131/83; PULSE 112; Ht 165.1 cm; Wt 115.1 kg
== END | disposition home or self-care (01) ==
LOC: C.NEUR 15:06
PROVIDERS: ATTEND Internal Medicine Pulmonary Disease
DX: G47.31 Primary central sleep apnea (principal); J45.909 Unspecified asthma, uncomplicated; R53.83 Other fatigue; G47.21 Circadian rhythm sleep disorder, delayed sleep phase type

== ENCOUNTER → 2017-02-01 | Outpatient (CLI) | payer BC ==
[2017-02-01 17:45] LABS: URINE APPEARANCE CLEAR (CLEAR); URINE BILIRUBIN NEG (NEG); URINE COLOR YELLOW; URINE EPITHELIAL CELL AUTO >30 /lpf (0-5); URINE NITRITE NEG (NEG); URINE PH 7.5 (4.5-7.5); URINE SPECIFIC GRAVITY 1.007 (1.000-1.030); UROBILINOGEN NEG (NEG); ZZUR CULT IF INDIC CLEAN CATCH NO
[2017-02-01 17:56] LABS: ALT/SGPT 17 U/L (12-78); AST/SGOT 10 U/L (15-37); BLOOD UREA NITROGEN 9 mg/dl (7-18); BUN/CREATININE RATIO 11.8 (10-20); CARBON DIOXIDE 31 mmol/L (21-32); CHLORIDE 101 mmol/L (98-107); CREATININE 0.73 mg/dl (0.60-1.20); GLUCOSE 129 mg/dl (70-99); POTASSIUM 3.9 mmol/L (3.5-5.1); SODIUM 141 mmol/L (136-145)
[2017-02-01 17:57] LABS: ALB/GLOB RATIO 0.8 (0.9-2); ALKALINE PHOSPHATASE 70 U/L (45-117); CHOLESTEROL 150 mg/dl (0-200); CHOLESTEROL/HDL RATIO 2.1; HDL CHOLESTEROL 73 mg/dl; LDL CHOLESTEROL CALCULATED 45 mg/dl; TRIGLYCERIDES 159 mg/dl (0-150); VERY LOW DENSITY LIPOPROT CALC 32 mg/dl
[2017-02-01 18:07] LABS: MANUAL MICROSCOPIC REQUIRED? NO; REVIEW REQ? NO
[2017-02-02 07:00] LABS: ESTIMATED AVERAGE GLUCOSE 137 mg/dl; HA1C FLAG Normal (Normal)
== END | disposition home or self-care (01) ==
LOC: C.LABBFT 11:49
PROVIDERS: ATTEND Internal Medicine
DX: E11.65 Type 2 diabetes mellitus with hyperglycemia (principal); E78.5 Hyperlipidemia, unspecified; E55.9 Vitamin D deficiency, unspecified

== ENCOUNTER → 2017-02-08 | Outpatient (CLI) | payer BC ==
[2017-02-08 18:35] LABS: URINE APPEARANCE CLEAR (CLEAR); URINE BILIRUBIN NEG (NEG); URINE EPITHELIAL CELL AUTO >30 /lpf (0-5); URINE NITRITE NEG (NEG); URINE SPECIFIC GRAVITY 1.006 (1.000-1.030); UROBILINOGEN NEG (NEG)
[2017-02-08 18:43] LABS: MANUAL MICROSCOPIC REQUIRED? NO; REVIEW REQ? NO; URINE COLOR YELLOW
== END | disposition home or self-care (01) ==
LOC: C.LABSPEC 17:48
PROVIDERS: ATTEND Physician Assistant Medical
DX: R31.29 Other microscopic hematuria (principal)

== ENCOUNTER → 2017-02-13 | Outpatient (CLI) | payer BC ==
--- NOTE | 2017-02-14 13:12 | MAMMOGRAPHY REPORT ---
BILATERAL DIGITAL SCREENING MAMMOGRAM TOMOSYNTHESIS WITH CAD: 02/13/2017 CLINICAL HISTORY: Routine screening. Patient has no complaints. TECHNIQUE: Breast tomosynthesis in addition to standard 2D mammography was performed. Current study was also evaluated with a Computer Aided Detection (CAD) system. COMPARISON: Comparison is made to exams dated: 02/11/2016 mammogram, 02/09/2015 mammogram, 01/02/2014 sancho mogram, 01/01/2013 mammogram, 01/01/2012 mammogram, and 12/29/2010 mammogram - [facility]. BREAST COMPOSITION: There are scattered areas of fibroglandular density in both breasts. FINDINGS: The parenchymal pattern is unchanged. No developing mass, architectural distortion or clus ter of suspicious microcalcifications is seen in either breast. IMPRESSION: ACR BI-RADS CATEGORY 2: BENIGN There is no mammographic evidence of malignancy. A 1 year screening mammogram is recommended. The pa tient will receive written notification of the results. Approximately 10% of breast cancers are not detected with mammography. A negative mammographic report should not delay biopsy if a clinically suggestive mass is present. Rhianna Wang M.D. ay/:02/13/2017 17:25:31 Physical Chemist: Kassandra BRIGHT(Amrita)(M), [facility] letter sent: Normal 1/2 BI-RADS Code: ACR BI-RADS Category 2: Benign
== END | disposition home or self-care (01) ==
LOC: C.MAMM 11:16
PROVIDERS: ATTEND Obstetrics & Gynecology
DX: Z12.31 Encounter for screening mammogram for malignant neoplasm of breast (principal)

== ENCOUNTER → 2017-04-06 | Outpatient (CLI) | payer BC ==
[~2017-04-06] VITALS: Ht 165.1 cm; Wt 116.6 kg
[2017-04-06 16:08] VITALS: BP 147/82; PULSE 108; Ht 165.1 cm; Wt 116.6 kg
== END | disposition home or self-care (01) ==
LOC: C.NEUR 15:21
PROVIDERS: ATTEND Internal Medicine Pulmonary Disease
DX: G47.31 Primary central sleep apnea (principal); G47.21 Circadian rhythm sleep disorder, delayed sleep phase type; M54.12 Radiculopathy, cervical region; R53.83 Other fatigue; E78.5 Hyperlipidemia, unspecified; E66.01 Morbid (severe) obesity due to excess calories; R06.83 Snoring; E55.9 Vitamin D deficiency, unspecified; Z79.899 Other long term (current) drug therapy

== ENCOUNTER → 2017-06-07 | Outpatient (CLI) | payer BC ==
[2017-06-07 12:19] LABS: ALT/SGPT 19 U/L (12-78); BLOOD UREA NITROGEN 8 mg/dl (7-18); BUN/CREATININE RATIO 9.5 (10-20); CALCIUM 9.8 mg/dl (8.5-10.1); CARBON DIOXIDE 28 mmol/L (21-32); CHLORIDE 95 mmol/L (98-107); CHOLESTEROL 156 mg/dl (0-200); CREATININE 0.84 mg/dl (0.60-1.20); GLUCOSE 108 mg/dl (70-99); SODIUM 133 mmol/L (136-145); TRIGLYCERIDES 169 mg/dl (0-150); VERY LOW DENSITY LIPOPROT CALC 34 mg/dl
[2017-06-07 12:22] LABS: ALB/GLOB RATIO 0.8 (0.9-2); ALKALINE PHOSPHATASE 62 U/L (45-117); AST/SGOT 14 U/L (15-37); CHOLESTEROL/HDL RATIO 2.7; HDL CHOLESTEROL 57 mg/dl; LDL CHOLESTEROL CALCULATED 65 mg/dl
[2017-06-07 12:25] LABS: ESTIMATED AVERAGE GLUCOSE 146 mg/dl; HA1C FLAG Normal (Normal)
--- NOTE | 2017-06-12 13:40 | CODING QUERY MEDICAL NECESSITY ---
SUPPORTING DIAGNOSIS NEEDED Sue PRESLEY, A supporting diagnosis is required for the test/procedure performed on this patient in order for us to be reimbursed by the patient's insurance. Please provide a supporting diagnosis for the following test/procedure listed below next to the test name along with your signature. *If there is no additional diagnosis for this patient that would support the following test/procedure please document that below next to the test/procedure. Test(s)/Procedure(s) that require a supporting diagnosis: * 17238 GLYCATED HEMOGLOBIN DIAGNOSIS: DATE OF SERVICE: 06/07/17 Provider Signature: Date: Thank you Neville Flores [facility] Information Management Once completed, please kindly fax back to [phone] For questions please call [phone]
== END | disposition home or self-care (01) ==
LOC: C.LABBFT 07:49
PROVIDERS: ATTEND Physician Assistant Medical
DX: E55.9 Vitamin D deficiency, unspecified (principal)

== ENCOUNTER → 2017-06-28 | Outpatient (CLI) | payer BC ==
[2017-06-28 17:45] LABS: BASO % 0.4 %; BASO ABS # 0.04 K/uL (0-0.2); COMPLETE YES; EOS % 1.9 %; HEMATOCRIT 34.1 % (37-47); IG% 0.4 %; LYMPH % 28.6 %; LYMPH ABS # 3.13 K/uL (1.2-3.4); MEAN CELL VOLUME 84.8 fL (80-100); MEAN CORPUSCULAR HEMOGLOBIN 27.1 pg (25-34); MEAN PLATELET VOLUME 9.2 fL (7.4-10.4); MONO % 6.2 %; NEUT % 62.5 %; PLATELET COUNT 314 K/uL (130-400); RED BLOOD COUNT 4.02 M/uL (4.2-5.4); WHITE BLOOD COUNT 10.93 K/uL (4.8-10.8)
[2017-06-28 18:06] LABS: BLOOD UREA NITROGEN 6 mg/dl (7-18); BUN/CREATININE RATIO 8.8 (10-20); CALCIUM 9.3 mg/dl (8.5-10.1); CARBON DIOXIDE 28 mmol/L (21-32); CHLORIDE 99 mmol/L (98-107); CREATININE 0.72 mg/dl (0.60-1.20); GLUCOSE 90 mg/dl (70-99); POTASSIUM 4.2 mmol/L (3.5-5.1); SODIUM 136 mmol/L (136-145)
[2017-06-28 18:09] LABS: ALB/GLOB RATIO 0.7 (0.9-2); ALKALINE PHOSPHATASE 64 U/L (45-117); ALT/SGPT 18 U/L (12-78); AST/SGOT 12 U/L (15-37); BLOOD UREA NITROGEN 6 mg/dl (7-18); BUN/CREATININE RATIO 8.3 (10-20); CALCIUM 9.2 mg/dl (8.5-10.1); CARBON DIOXIDE 29 mmol/L (21-32); CHLORIDE 99 mmol/L (98-107); CREATININE 0.71 mg/dl (0.60-1.20); GLUCOSE 86 mg/dl (70-99); POTASSIUM 4.2 mmol/L (3.5-5.1); SODIUM 136 mmol/L (136-145)
[2017-06-28 18:10] LABS: FERRITIN 55.3 ng/ml (8.0-388.0); TOTAL IRON BINDING CAPACITY 273 mcg/dl (250-450)
== END | disposition home or self-care (01) ==
LOC: C.LABBFT 14:11
PROVIDERS: ATTEND Nurse Practitioner Family
DX: D50.9 Iron deficiency anemia, unspecified (principal); E87.1 Hypo-osmolality and hyponatremia

== ENCOUNTER → 2017-08-13 | Outpatient (CLI) | payer BC | END | disposition home or self-care (01) | LOC: C.PAPS 18:20 | PROVIDERS: ATTEND Obstetrics & Gynecology | DX: Z12.4 Encounter for screening for malignant neoplasm of cervix (principal) ==

== ENCOUNTER → 2017-10-15 | Outpatient (CLI) | payer BC ==
[2017-10-15 17:40] LABS: BASO % 0.2 %; BASO ABS # 0.02 K/uL (0-0.2); EOS % 2.4 %; EOS ABS # 0.29 K/uL (0-0.5); HEMATOCRIT 37.3 % (37-47); HEMOGLOBIN 11.7 g/dL (12.0-16.0); IG# 0.05 K/uL (0.00-0.02); LYMPH % 31.1 %; LYMPH ABS # 3.72 K/uL (1.2-3.4); MEAN CELL VOLUME 86.1 fL (80-100); MEAN CORPUSCULAR HGB CONC 31.4 g/dl (32-36); MEAN PLATELET VOLUME 9.8 fL (7.4-10.4); MONO % 5.2 %; MONO ABS # 0.62 K/uL (0.11-0.59); NEUT % 60.7 %; NEUT ABS # 7.27 K/uL (1.4-6.5); PLATELET COUNT 344 K/uL (130-400); RED CELL DISTRIBUTION WIDTH CV 15.5 % (11.5-14.5); RED CELL DISTRIBUTION WIDTH SD 48.9 fL (36.4-46.3); WHITE BLOOD COUNT 11.97 K/uL (4.8-10.8)
[2017-10-15 17:51] LABS: BLOOD UREA NITROGEN 7 mg/dl (7-18); CALCIUM 9.1 mg/dl (8.5-10.1); CARBON DIOXIDE 33 mmol/L (21-32); CREATININE 0.86 mg/dl (0.60-1.20); GLUCOSE 106 mg/dl (70-99); POTASSIUM 4.1 mmol/L (3.5-5.1); SODIUM 137 mmol/L (136-145)
[2017-10-15 18:00] LABS: CREATININE RANDOM URINE 43.3 mg/dl
[2017-10-16 05:34] LABS: HEMOGLOBIN A1C 6.5 % (4.5-5.6)
== END | disposition home or self-care (01) ==
LOC: C.LABBFT 13:01
PROVIDERS: ATTEND Internal Medicine
DX: E11.65 Type 2 diabetes mellitus with hyperglycemia (principal); E87.1 Hypo-osmolality and hyponatremia; E55.9 Vitamin D deficiency, unspecified; D72.829 Elevated white blood cell count, unspecified

== ENCOUNTER → 2017-12-28 | Outpatient (CLI) | payer BC ==
[2017-12-28 12:34] LABS: BASO % 0.3 %; BASO ABS # 0.03 K/uL (0-0.2); EOS % 3.6 %; EOS ABS # 0.39 K/uL (0-0.5); HEMOGLOBIN 11.6 g/dL (12.0-16.0); IG# 0.03 K/uL (0.00-0.02); LYMPH % 31.7 %; LYMPH ABS # 3.43 K/uL (1.2-3.4); MEAN CELL VOLUME 85.6 fL (80-100); MEAN CORPUSCULAR HEMOGLOBIN 26.9 pg (25-34); MEAN CORPUSCULAR HGB CONC 31.4 g/dl (32-36); MEAN PLATELET VOLUME 9.5 fL (7.4-10.4); MONO % 5.1 %; MONO ABS # 0.55 K/uL (0.11-0.59); PLATELET COUNT 331 K/uL (130-400); RED CELL DISTRIBUTION WIDTH CV 15.7 % (11.5-14.5); RED CELL DISTRIBUTION WIDTH SD 49.1 fL (36.4-46.3); WHITE BLOOD COUNT 10.83 K/uL (4.8-10.8)
[2017-12-28 12:52] LABS: ALBUMIN 3.2 gm/dl (3.4-5.0); ALKALINE PHOSPHATASE 69 U/L (45-117); ALT/SGPT 25 U/L (12-78); AST/SGOT 15 U/L (15-37); BLOOD UREA NITROGEN 7 mg/dl (7-18); CARBON DIOXIDE 32 mmol/L (21-32); GLUCOSE 102 mg/dl (70-99); POTASSIUM 3.8 mmol/L (3.5-5.1); SODIUM 136 mmol/L (136-145)
[2017-12-28 12:57] LABS: TOTAL PROTEIN 7.7 gm/dl (6.4-8.2)
== END | disposition home or self-care (01) ==
LOC: C.LABBFT 07:41
PROVIDERS: ATTEND Nurse Practitioner Family
DX: D50.9 Iron deficiency anemia, unspecified (principal)

== ENCOUNTER 2018-01-13 15:31 | Inpatient (IN) | payer BC, OTHER ==
[2018-01-12 19:45] VITALS: BP 164/109; PULSE 112; TEMP 37.2; O2SAT 92
[~2018-01-13] VITALS: Ht 165.1 cm; Wt 112.7 kg
[2018-01-13] MEDS ORDERED: ARIP1TAB16 PO (16:13)
[2018-01-13] MEDS ORDERED: EFFSR75 PO (16:13)
--- NOTE | 2018-01-13 16:16 | DIAGNOSTIC IMAGING REPORT ---
L ANKLE MIN 3 VIEWS ROUTINE HISTORY: 53 years-old Female L ankle injury acute left ankle pain status post trauma COMPARISON: Left ankle radiographs 08/26/2012 TECHNIQUE: 3 views of the left ankle FINDINGS: There is acute trimalleolar fracture about the left ankle. 5 mm displaced fracture fragment of the medial malleolus is noted with widening of the medial clear space, 5 mm. Obliquely oriented acute fracture of the distal fibular metaphysis extends to the level of the ankle mortise. There is 3 mm posterior and 2 mm lateral displacement of the distal fibular fracture. 2 mm displacement posteriorly of the posterior malleolar fracture. Moderate soft tissue swelling circumferentially about the ankle with moderate joint effusion. Note is made of an os trigonum. No opaque foreign body. IMPRESSION: Acute mildly displaced trimalleolar fracture of the left ankle with widening of the medial clear space. The above report was generated using voice recognition software. It may contain grammatical, syntax or spelling errors. Electronically signed by: Jerzy Carlos M.D. 01/13/2018 4:15 PM Dictated Date/Time: 01/13/2018 4:12 PM
[2018-01-13] MEDS ORDERED: MoRPHine SULFATE 10 MG/ML CARP/VIAL IV STA (17:43)
[2018-01-13] MEDS ORDERED: ALUMINUM/MAGNESIUM SUSP 30 ML UDC PO PRN (17:45)
[2018-01-13] MEDS ORDERED: ZOLPIDEM TARTRATE 5 MG TAB PO PRN (17:45)
[2018-01-13] MEDS ORDERED: GLUCAGON FOR INJ 1 MG VIAL SQ PRN (17:45)
[2018-01-13] MEDS ORDERED: CARBOHYDRATES FOR HYPOGLYCEMIA PO PRN (17:45)
[2018-01-13] MEDS ORDERED: DiphenhydrAMINE HCL 50 MG/ML VIAL IV PRN (17:45)
[2018-01-13] MEDS ORDERED: ACETAMINOPHEN 325 MG TAB PO PRN (17:45)
[2018-01-13] MEDS ORDERED: GLUCOSE 10 TABS/TUBE PO PRN (17:45)
[2018-01-13] MEDS ORDERED: GLUCOSE 40% GEL 15 GM TUBE PO PRN (17:45)
[2018-01-13] MEDS ORDERED: METOCLOPRAMIDE HCL INJ 5 MG/ML 2 ML VIAL IV PRN (17:45)
[2018-01-13] MEDS ORDERED: ONDANSETRON INJ 2 MG/ML 2 ML VIAL IV PRN (17:45)
[2018-01-13] MEDS ORDERED: MECLIZINE HCL 12.5 MG TAB PO PRN (17:45)
[2018-01-13] MEDS ORDERED: DEXTROSE 50% 50 ML SYR IV PRN (17:45)
--- NOTE | 2018-01-13 17:50 | EMERGENCY ROOM VISIT NOTE ---
ED Visit Note First contact with patient: 15:46 I did evaluate and examine this patient myself. I did guide management for the patient. I agree with the PA's assessment as discussed. Please see the PAs dictation for further details. I did independently review the x-rays and blood work. The patient was splinted and admitted to the hospital for operative repair.
--- NOTE | 2018-01-13 17:52 | DIAGNOSTIC IMAGING REPORT ---
CHEST ONE VIEW PORTABLE HISTORY: 53 years-old Female PRE-OP CXR preoperative exam. COMPARISON: Chest radiograph 01/19/2015 TECHNIQUE: Portable AP view of the chest FINDINGS: Cardiac silhouette is enlarged. There is rightward mediastinal and cardiac shift with ill-defined opacity of the medial right lung base. No pneumothorax, pleural effusion or overt pulmonary edema. Degenerative changes of the shoulders and spine with fusion hardware of the lower cervical spine. IMPRESSION: Rightward mediastinal shift/volume loss with ill-defined opacity of the medial right lung base, possibly reflecting right middle lobe collapse. This could be correlated with CT of the chest to further characterize. The above report was generated using voice recognition software. It may contain grammatical, syntax or spelling errors. Electronically signed by: Jerzy Carlos M.D. 01/13/2018 5:50 PM Dictated Date/Time: 01/13/2018 5:49 PM
[2018-01-13 18:01] LABS: BASO % 0.2 %; BASO ABS # 0.02 K/uL (0-0.2); EOS % 1.7 %; EOS ABS # 0.21 K/uL (0-0.5); HEMATOCRIT 36.5 % (37-47); HEMOGLOBIN 11.9 g/dL (12.0-16.0); IG# 0.06 K/uL (0.00-0.02); LYMPH % 17.8 %; LYMPH ABS # 2.26 K/uL (1.2-3.4); MEAN CELL VOLUME 82.4 fL (80-100); MEAN CORPUSCULAR HEMOGLOBIN 26.9 pg (25-34); MEAN CORPUSCULAR HGB CONC 32.6 g/dl (32-36); MEAN PLATELET VOLUME 8.8 fL (7.4-10.4); MONO % 4.3 %; MONO ABS # 0.54 K/uL (0.11-0.59); NEUT % 75.5 %; PLATELET COUNT 293 K/uL (130-400); RED CELL DISTRIBUTION WIDTH CV 15.4 % (11.5-14.5); RED CELL DISTRIBUTION WIDTH SD 46.4 fL (36.4-46.3); WHITE BLOOD COUNT 12.69 K/uL (4.8-10.8)
[2018-01-13 18:19] LABS: CALCIUM 9.4 mg/dl (8.5-10.1); CREATININE 0.91 mg/dl (0.60-1.20); POTASSIUM 4.2 mmol/L (3.5-5.1)
--- NOTE | 2018-01-13 18:49 | EMERGENCY ROOM VISIT NOTE ---
History First contact with patient: 15:46 Chief Complaint: FALL Stated Complaint: FALL,L ANKLE PAIN,CAN'T PUT WEIGHT ON IT History of Present Illness The patient is a 53 year old female who presents to the Emergency Room with complaints of left ankle pain after falling at home. The patient reports that her right foot went to sleep, and when she tried to walk on it, it gave out and she fell onto her left side. She complains mostly of left ankle pain and swelling. She reports only mild right ankle discomfort, and is not concerned about any x-rays. The patient reports a history of herniated disks in her neck , but denies any worsening neck pain. She was wearing a soft collar at the time of her fall. She also thinks that she hit her head, but denies any headache, loss of consciousness, nausea, blurred vision or other significant symptoms. She rates her ankle discomfort a 7 out of 10. The patient did take an Opana right after her fall. The patient is currently in pain management, and has an appointment on Sunday. The patient reports that she does have chronic upper extremity tingling, burning and numbness. She reports that her current symptoms have not changed since her fall. Review of Systems 10 system review was performed and was negative except for pertinent positives and negatives as indicated in history of present illness Past Medical/Surgical History Medical Problems: (1) Anxiety disorder, unspecified (2) Asthma, Unspecified (3) Calculus Of Kidney (4) Chronic Liver Dis Nec (5) Chronic Pain Syndrome (6) Essential (Primary) Hypertension (7) Essential (Primary) Hypertension (8) Irritable Bowel Syndrome (9) Left Trimalleolar Ankle Fracture (10) Leukocytosis (11) Lumbago (12) Major Depressive Disorder, Single Episode, Unspecified (13) Morbid (Severe) Obesity Due To Excess Calories (14) Opioid Dependence, Uncomplicated (15) Postlaminectomy Syndrome, Not Elsewhere Classified (16) Vitamin D Deficiency, Unspecified Surgical Problems: (1) Tubal Ligation Status Family History Unremarkable Social History Smoking Status: Never Smoker Alcohol Use: none Drug Use: none Marital Status: Occupation Status: disabled Current/Historical Medications Scheduled Aripiprazole (Aripiprazole), 15 MG PO DAILY Atorvastatin (Lipitor), 1 TAB PO HS Cholecalciferol (Vitamin D3), 1 TAB PO weekly Cinnamon (Cinnamon), 2 CAP PO DAILY Duloxetine HCl (Cymbalta), 1 CAP PO DAILY Duloxetine Hcl (Cymbalta), 60 MG PO DAILY Esomeprazole Magnesium (Nexium), 40 MG PO QAM Gabapentin (Neurontin), 600 MG PO TID Medroxyprogesterone (Provera), 10 MG PO daily x 12 days Meloxicam (Mobic), 15 MG PO DAILY Metformin Hcl (Glucophage), 1,000 MG PO BID Oxymorphone Hcl (Opana Er (Crush Resistant), 1 TAB PO Q12 Quetiapine Fumarate (Seroquel), 3 TAB PO HS Ranitidine (Zantac), 300 MG PO HS Venlafaxine Hcl (Effexor Extended Rel), 75 MG PO DAILY Scheduled PRN Meclizine Hcl (Meclizine Hcl), 1 TAB PO TID PRN for VERTIGO Oxymorphone Hcl (Opana), 1 TAB PO Q6H PRN for Pain Physical Exam Vital Signs Date Time Temp Pulse Resp B/P (MAP) Pulse Ox O2 Delivery O2 Flow Rate FiO2 01/13/18 15:41 36.8 71 22 163/86 96 Room Air Physical Exam CONSTITUTIONAL: Morbidly obese female, alert and oriented X 3 with positive affect. Patient does not appear in any acute distress. She is wearing a soft cervical collar. HEENT: Normocephalic, atraumatic. Pupils equal, round and reactive. No hematomas, abrasions or lacerations. No subconjunctival hemorrhage, epistaxis, hemotympanum, raccoon's eyes or beard sign. NECK: Removal of the collar shows only minimal tenderness to palpation about the neck. No soft tissue edema, ecchymosis or focal tenderness to palpation through the central cervical spine. RESPIRATORY: Clear to auscultation bilaterally with no wheezing, crackles, rhonchi or stridor. CARDIOVASCULAR: Regular rate and rhythm with no murmurs, rubs or gallops. GASTROINTESTINAL: Bowel sounds present in all quadrants. Protuberant but soft and nontender to palpation. MUSCULOSKELETAL: Examination of the left ankle shows predominant lateral edema without ecchymosis or open wounds. She is tender throughout the entire distal fibula and lateral ankle region. She has mild tenderness to the deltoid ligament. Negative anterior draw. No focal tenderness through the dorsal midfoot, metatarsals, phalanges, calcaneus or Achilles tendon. Examination of the right ankle does not show any soft tissue edema. She has minimal tenderness laterally. Negative anterior draw. Pedal pulses are intact bilaterally. Patient otherwise has no tenderness to palpation through the knees , lower back or pelvic region. Distal pulses are intact. INTEGUMENTARY: No rash or other significant dermatologic conditions noted. NEUROLOGIC: Cranial nerves II-XII grossly intact. No focal neurologic deficits noted. Upper and lower extremities are sensory intact. Medical Decision & Procedures ER Provider Diagnostic Interpretation: My interpretation of left ankle x-ray shows a trimalleolar fracture. Radiologist report is as follows: L ANKLE MIN 3 VIEWS ROUTINE HISTORY: 53 years-old Female L ankle injury acute left ankle pain status post trauma COMPARISON: Left ankle radiographs 08/26/2012 TECHNIQUE: 3 views of the left ankle FINDINGS: There is acute trimalleolar fracture about the left ankle. 5 mm displaced fracture fragment of the medial malleolus is noted with widening of the medial clear space, 5 mm. Obliquely oriented acute fracture of the distal fibular metaphysis extends to the level of the ankle mortise. There is 3 mm posterior and 2 mm lateral displacement of the distal fibular fracture. 2 mm displacement posteriorly of the posterior malleolar fracture. Moderate soft tissue swelling circumferentially about the ankle with moderate joint effusion. Note is made of an os trigonum. No opaque foreign body. IMPRESSION: Acute mildly displaced trimalleolar fracture of the left ankle with widening of the medial clear space. My interpretation of an ECG shows a sinus tachycardia of [address] elevation or other conduction abnormalities. A preoperative portable chest x-ray was ordered and is pending at the time of this dictation. Laboratory Results 01/13/18 17:50 Red Blood Count 4.43, Mean Corpuscular Volume 82.4, Mean Corpuscular Hemoglobin 26.9, Mean Corpuscular Hemoglobin Concent 32.6, Mean Platelet Volume 8.8, Neutrophils (%) (Auto) 75.5, Lymphocytes (%) (Auto) 17.8, Monocytes (%) (Auto) 4.3, Eosinophils (%) (Auto) 1.7, Basophils (%) (Auto) 0.2, Neutrophils # (Auto) 9.60, Lymphocytes # (Auto) 2.26, Monocytes # (Auto) 0.54, Eosinophils # (Auto) 0.21, Basophils # (Auto) 0.02 01/13/18 17:50 Test 01/13/18 17:50 White Blood Count 12.69 K/uL (4.8-10.8) Red Blood Count 4.43 M/uL (4.2-5.4) Hemoglobin 11.9 g/dL (12.0-16.0) Hematocrit 36.5 % (37-47) Mean Corpuscular Volume 82.4 fL (80-100) Mean Corpuscular Hemoglobin 26.9 pg (25-34) Mean Corpuscular Hemoglobin Concent 32.6 g/dl (32-36) Platelet Count 293 K/uL (130-400) Mean Platelet Volume 8.8 fL (7.4-10.4) Neutrophils (%) (Auto) 75.5 % Lymphocytes (%) (Auto) 17.8 % Monocytes (%) (Auto) 4.3 % Eosinophils (%) (Auto) 1.7 % Basophils (%) (Auto) 0.2 % Neutrophils # (Auto) 9.60 K/uL (1.4-6.5) Lymphocytes # (Auto) 2.26 K/uL (1.2-3.4) Monocytes # (Auto) 0.54 K/uL (0.11-0.59) Eosinophils # (Auto) 0.21 K/uL (0-0.5) Basophils # (Auto) 0.02 K/uL (0-0.2) RDW Standard Deviation 46.4 fL (36.4-46.3) RDW Coefficient of Variation 15.4 % (11.5-14.5) Immature Granulocyte % (Auto) 0.5 % Immature Granulocyte # (Auto) 0.06 K/uL (0.00-0.02) Prothrombin Time 10.1 SECONDS (9.0-12.0) Prothromb Time International Ratio 1.0 (0.9-1.1) Anion Gap 8.0 mmol/L (3-11) Est Creatinine Clear Calc Drug Dose 91.7 ml/min Estimated GFR () 84.7 Estimated GFR (Non- 73.1 BUN/Creatinine Ratio 8.1 (10-20) Calcium Level 9.4 mg/dl (8.5-10.1) Medications Administered Medications (Trade) Dose Ordered Sig/Sanjuanita Route Start Time Stop Time Status Last Admin Dose Admin Morphine Sulfate (MoRPHine SULFATE INJ) 8 mg NOW STAT IV 01/13/18 17:43 01/13/18 17:45 DC 01/13/18 18:31 8 MG ED Course Patient history and physical exam were performed. Nurse's notes were reviewed. Vital signs were reviewed. The patient is currently refusing any analgesics. I also discussed imaging of the head and neck, but the patient reports that she is not concerned for any injuries to her head or neck. She was instructed to return with any worsening symptoms. The patient also deferred x-rays of the right ankle. X-rays of the left ankle confirms a trimalleolar ankle fracture. Upon further questioning, the patient reports that she usually has an ambulatory dysfunction. Although she has a wheelchair, crutches, walker and cane at home, the son and reported that they had a difficult time getting her down 5 steps out of the house and into the car. The patient has chronic weakness in the upper and lower extremity secondary to her neck and back problems. I discussed the case with Dr. Harris, orthopedic surgeon veterinary surgeon , who will be admitting the patient for operative management tomorrow. He has requested preoperative lab work, ECG and portable chest x-ray. I was able to see the ECG prior to transfer of care, showing a sinus tachycardia [address] elevation or other conduction abnormalities are noted. The patient was administered IV morphine for pain. Please see Dr. Harris's dictation for further treatment and final disposition. The patient was also examined by Dr. Boyce, ED attending physician, who agrees with workup and plan of care. Medical Decision [place] Drug Monitoring Program Search Results: patient reviewed within database, see additional documentation Medication Reconcilliation Current Medication List: was personally reviewed by me Blood Pressure Screening Patient's blood pressure: Normal blood pressure Impression Primary Impression: Left Trimalleolar Ankle Fracture Departure Information Referrals Marcelino Webber M.D. (PCP) Patient Instructions [facility]
[2018-01-13 19:45] VITALS: BP 164/109; PULSE 112; TEMP 37.3; O2SAT 92
[2018-01-13] MEDS ORDERED: SODIUM CHLORIDE 0.9% 1000ML 1,000 ML IV SCH (19:45)
[2018-01-13 20:08] VITALS: Ht 165.1 cm; Wt 112.7 kg
[2018-01-13] MEDS ORDERED: INSULIN HUMAN REGULAR SC SCH (21:00)
[2018-01-13] MEDS: QUETIAPINE FUMARATE 25 MG TAB PO SCH (21:25)
[2018-01-13] MEDS: GABAPENTIN 300 MG CAP PO SCH (21:25)
[2018-01-13] MEDS: RANITIDINE HCL 150 MG TAB PO SCH (21:25)
[2018-01-13] MEDS: ATORVASTATIN 20 MG TAB PO SCH (21:25)
[2018-01-13] MEDS: DOCUSATE SODIUM 100 MG CAP PO SCH (21:25)
[2018-01-13] MEDS: OXYCODONE/ACETAMINOPHEN 5-325 TAB PO PRN (21:26)
--- NOTE | 2018-01-13 22:49 | HISTORY & PHYSICAL EXAMINATION ---
DATE OF ADMISSION: 01/13/2018 CHIEF COMPLAINT: Left ankle injury. HISTORY OF PRESENT ILLNESS: The patient is a 53-year-old female, currently unemployed and on disability for some chronic neck and back problems, who sustained a fall at home today. She says her right leg was numb, and she got up to walk and kind of lost her balance and fell and injured her left ankle. She had acute onset of pain. She could not put any weight on her left ankle. She was brought to the ER by her and son with quite difficulty. X-rays revealed an ankle fracture. We have been consulted for treatment. No preexisting ankle problems. She did previously use a cane to get around and even a wheelchair in [place] due to her chronic back and neck problems. She is on chronic narcotics and treated in the pain clinic. She denies any other injuries. No head injury, no loss of consciousness, no neck pain. No other injuries. PAST MEDICAL HISTORY: Significant for 1. Diabetes x2 years. 2. Gastroesophageal reflux disease. 3. Hypertension. 4. Elevated cholesterol. 5. Anxiety. 6. Bipolar disorder. 7. Asthma. 8. Chronic pain syndrome, on chronic narcotics. 9. Obesity with a BMI of 42. 10. Irritable bowel syndrome. PAST SURGICAL HISTORY: Include: 1. Tubal ligation. 2. ACDF, done by Dr. Wheatley. 3. Spinal cord stimulator placement. 4. Cholecystectomy. 5. Left shoulder surgery. ALLERGIES: FENTANYL, LITHIUM, RAGWEED. MEDICATIONS: Current medicines include 1. Lipitor. 2. Aripiprazole. 3. Vitamin D3. 4. Cinnamon. 5. Duloxetine/Cymbalta. 6. Nexium. 7. Neurontin. 8. Meclizine. 9. Provera 10. Mobic. 11. Glucophage/metformin. 12. Oxymorphone/Opana. 13. Seroquel. 14. Zantac. 15. Effexor. SOCIAL HISTORY: A 53-year-old female. She is on disability. She is . FAMILY HISTORY: Noncontributory. REVIEW OF SYSTEMS: As above. Denies any other injuries. She is on chronic narcotics. No chest pain or shortness of breath. No history of DVT or PE. PHYSICAL EXAMINATION: VITAL SIGNS: Temperature is 37.3. Stable. GENERAL: Examination shows a pleasant and somewhat poorly kempt middle aged female who is sitting up in bed, looks completely comfortable. HEENT: Benign. NECK: Supple. No lymphadenopathy. LUNGS: Clear to auscultation. CARDIOVASCULAR: Heart has a regular rate and rhythm. GASTROINTESTINAL: Abdomen is soft, nontender, nondistended. MUSCULOSKELETAL: Grossly neurovascularly intact. General musculoskeletal exam reveals chronic pain with neck motion but nothing acute. No obvious deformity to her neck or lumbar spine. She has painless range of motion of both shoulders, wrists, elbows, and hands in the right lower extremity. Examination of the left lower extremity reveals the splint to be in place over the ankle. Her skin is extremely dry. She can dorsiflex and plantarflex her foot appropriately. Ankle looks reasonably well aligned in the splint. She has brisk refill. X-RAYS: X-rays of left ankle were reviewed. It shows a trimalleolar ankle fracture/subluxation. It has subluxated a little bit laterally. She has a small posterior malleolus fracture and a Mcbride B fibular fracture. ASSESSMENT: A 53-year-old female with multiple medical comorbidities including diabetes, chronic narcotic use, with a left displaced trimalleolar ankle fracture equivalent. She was seen in the ER and unable to go home due to her impaired mobility due to her size and multiple medical comorbidities. We have been asked to admit this patient and fix her ankle tomorrow. PLAN: We talked about treatment. This is certainly something that is best treated surgically. We will plan to take her to the operating room tomorrow and fix her ankle. She will likely need to stay overnight to get instructions on postoperative mobilization. Will get psych social worker involved. Will begin DVT prophylaxis including TEDs, SCDs, and aspirin postoperatively. The risks and benefits of ORIF of left ankle fracture were explained to the patient including but not limited to DVT, PE, , infection, neurological injury, vascular injury, bleeding problem, pain, limited range of motion, stiffness, failure to relieve her symptoms, incomplete relief of symptoms, need for further surgery in the future, fracture, leg length inequality, nonunion, symptomatic hardware, and loss of foot with her significant diabetes. The patient understands and desires to proceed. Informed consent was obtained.
[2018-01-13 23:00] VITALS: BP 145/82; PULSE 97; TEMP 36.9; O2SAT 97
[2018-01-13] MEDS: HYDROmorphone INJ 0.5 MG/0.5 ML SYR IV PRN (23:48)
[2018-01-14] VITALS (7 sets, daily range): BP systolic 96–133; BP diastolic 63–83; PULSE 85–99; TEMP 36.5–37.2; O2SAT 91–97
[2018-01-14] MEDS ORDERED: NURSING DECISION MEDICATION ORDER SCH (01:45)
[2018-01-14] MEDS: OXYCODONE/ACETAMINOPHEN 5-325 TAB PO PRN (03:45)
[2018-01-14] MEDS: INSULIN ASPART 100 UNITS/ML 3 ML PEN SC SCH ×4 (05:58→21:51)
[2018-01-14] MEDS ORDERED: CEFAZOLIN IV 2,000 MG in DEXTROSE 5% 50ML 50 ML IV SCH (06:00)
[2018-01-14] MEDS ORDERED: CEFAZOLIN 2000MG IV PUSH 15 ML IV SCH (06:00)
[2018-01-14] MEDS: HYDROmorphone INJ 0.5 MG/0.5 ML SYR IV PRN ×4 (07:03→12:51)
--- NOTE | 2018-01-14 07:54 | PROGRESS NOTE ---
DATE: 01/14/2018 SUBJECTIVE: A 53-year-old white female admitted last evening for a left unstable ankle fracture. No new complaints today. Isolated ankle pain. OBJECTIVE: VITAL SIGNS: Temperature 36.8. Stable. GENERAL: Examination shows a pleasant middle-aged female. She is lying in bed, looks pretty comfortable. EXTREMITIES: Examination of the left ankle reveals the splint to be in place. Ankles reasonably looks well aligned. She can dorsiflex and plantarflex her toes appropriately. She is neurologically intact. ASSESSMENT: A 53-year-old white female with a left unstable Mcbride ankle fracture. Multiple medical comorbidities including diabetes and morbid obesity. PLAN: We are going to take her to the operating room today and fix her ankle. She will likely need to stay overnight for some therapy and mobilization training before discharge to home. The patient understands and desires to proceed. Informed consent was obtained last evening.
[2018-01-14] MEDS ORDERED: INSULIN ASPART 100 UNITS/ML 3 ML PEN SC SCH (08:00)
[2018-01-14] MEDS: DULOXETINE (CYMBALTA) 30 MG CAP PO SCH (08:24)
[2018-01-14] MEDS: VENLAFAXINE HCL XR 75 MG CAPXR PO SCH (08:25)
[2018-01-14] MEDS: DULOXETINE HCL 60 MG CAP PO SCH (08:25)
[2018-01-14] MEDS: ARIPIprazole TAB 15 MG TAB PO SCH (08:25)
[2018-01-14] MEDS: DOCUSATE SODIUM 100 MG CAP PO SCH ×2 (08:25→22:03)
[2018-01-14] MEDS: PANTOprazole SOD 40 MG TAB PO SCH (08:26)
[2018-01-14] MEDS: GABAPENTIN 300 MG CAP PO SCH ×3 (08:26→22:02)
[2018-01-14] MEDS ORDERED: PANTOprazole SOD 40 MG TAB PO SCH (09:00)
[2018-01-14] MEDS ORDERED: CINNAMON PO SCH (09:00)
--- NOTE | 2018-01-14 09:24 | Medical Consult ---
Consultation Date of Consultation: January 14, 2018. Attending Physician: Chepe Harris M.D. Reason for Consultation: Medical management History of Present Illness This is a 53 yo F with PMHx of DM II, HTN, HLD, IBS, GERD, Asthma, obesity BMI = 41.4, Major depressive disorder, bipolar disorder, and Anxiety who presents after fall where she sustained a L trimalleolar ankle fracture and is anticipated to undergo surgical intervention with Dr. Harris today. She has c/ o of pain due to not taking routine narcotics this morning as we do not have oxymorphone on formulary here. She otherwise has no acute complaints. Pt lives at home with her . Past Medical/Surgical History Medical Problems: (1) Anxiety disorder, unspecified (2) Asthma, Unspecified (3) Calculus Of Kidney (4) Chronic Liver Dis Nec (5) Chronic Pain Syndrome (6) Essential (Primary) Hypertension (7) Vitamin D Deficiency, Unspecified (8) Irritable Bowel Syndrome (9) Left Trimalleolar Ankle Fracture (10) Leukocytosis (11) Lumbago (12) Major Depressive Disorder, Single Episode, Unspecified (13) Morbid (Severe) Obesity Due To Excess Calories (14) Opioid Dependence, Uncomplicated (15) Postlaminectomy Syndrome, Not Elsewhere Classified Surgical Problems: (1) Tubal Ligation Status Social History Smoking Status: Never Smoker Smokeless Tobacco Use: No Drug Use: none Marital Status: Housing Status: lives with family Occupation Status: disabled Allergies Coded Allergies: Fentanyl (Verified Allergy, Severe, SHORTNESS OF BREATH WITH PATCH-, ) 06/10/15: Pharmacist comment: is this an allergy or resp depression from excessive dose? Note-pt received fentanyl with 06/10/15 surgery without problem. aj [place] (Verified Allergy, Unknown, SWELLING, 09/20/16) Ragweed (Verified Allergy, Unknown, SEASONAL ALLERGIES, 09/20/16) Current Inpatient Medications Current Inpatient Medications Medications (Trade) Dose Ordered Sig/Sanjuanita Route Start Time Stop Time Status Last Admin Dose Admin Oxycodone/ Acetaminophen (Percocet 5-325mg Tab) `1-2 TABS FOR PAIN `1 TAB... Q4H PRN PO 01/13/18 17:45 01/27/18 17:44 01/14/18 03:45 2 TAB Acetaminophen (Tylenol Tab) 650 mg Q6H PRN PO 01/13/18 17:45 02/12/18 17:44 Diphenhydramine HCl (Benadryl Cap) 25 mg Q8H PRN PO 01/13/18 17:45 02/12/18 17:44 Diphenhydramine HCl (Benadryl Inj) 25 mg Q8H PRN IV 01/13/18 17:45 02/12/18 17:44 Zolpidem Tartrate (Ambien Tab) 5 mg HSZ PRN PO 01/13/18 17:45 02/12/18 17:44 Metoclopramide HCl (Reglan Inj) 10 mg Q6H PRN IV 01/13/18 17:45 02/12/18 17:44 Ondansetron HCl (Zofran Inj) 4 mg Q6H PRN IV 01/13/18 17:45 02/12/18 17:44 Al Hydroxide/Mg Hydroxide (Maalox Susp) 30 ml Q6H PRN PO 01/13/18 17:45 02/12/18 17:44 Docusate Sodium (coLACE CAP) 100 mg BID PO 01/13/18 21:00 02/12/18 20:59 01/14/18 08:25 100 MG Sodium Chloride 1,000 ml @ 50 mls/hr Q20H IV 01/13/18 19:45 02/12/18 19:44 01/13/18 21:26 50 MLS/HR Aripiprazole (Abilify Tab) 15 mg DAILY PO 01/14/18 09:00 02/13/18 08:59 01/14/18 08:25 15 MG Atorvastatin Calcium (Lipitor Tab) 20 mg HS PO 01/13/18 21:00 02/12/18 20:59 01/13/18 21:25 20 MG Duloxetine HCl (Cymbalta Cap) 30 mg DAILY PO 01/14/18 09:00 02/13/18 08:59 01/14/18 08:24 30 MG Duloxetine HCl (Cymbalta Cap) 60 mg DAILY PO 01/14/18 09:00 02/13/18 08:59 01/14/18 08:25 60 MG Gabapentin (Neurontin Cap) 600 mg TID PO 01/13/18 21:00 02/12/18 20:59 01/14/18 08:26 600 MG Meclizine HCl (Antivert Tab) 25 mg TID PRN PO 01/13/18 17:45 02/12/18 17:44 Quetiapine Fumarate (seroQUEL TAB) 75 mg HS PO 01/13/18 21:00 02/12/18 20:59 01/13/18 21:25 75 MG Venlafaxine HCl (effeXOR EXTENDED REL CAP) 75 mg DAILY PO 01/14/18 09:00 02/13/18 08:59 01/14/18 08:25 75 MG Cholecalciferol (Vitamin D Tab) 1,000 inter.unit Q7D PO 01/20/18 09:00 02/19/18 08:59 Pantoprazole Sodium (Protonix Tab) 40 mg QAM PO 01/14/18 09:00 02/13/18 08:59 01/14/18 08:26 40 MG Miscellaneous Information (Order Awaiting Action) 1 ea QS N/A 01/14/18 00:00 02/13/18 00:00 Miscellaneous Information (Order Awaiting Action) 1 ea QS N/A 01/14/18 00:00 02/13/18 00:00 Miscellaneous Information (Order Awaiting Action) 1 ea QS N/A 01/14/18 00:00 02/13/18 00:00 Ranitidine HCl (zANTac TAB) 300 mg HS PO 01/13/18 21:00 02/12/18 20:59 01/13/18 21:25 300 MG Glucose (Glucose 40% Gel) 15-30 GRAMS 15 GRAMS... UD PRN PO 01/13/18 17:45 02/12/18 17:44 Glucose (Glucose Chew Tab) 4-8 Tablets 4 Tabl... UD PRN PO 01/13/18 17:45 02/12/18 17:44 Dextrose (Dextrose 50% 50ML Syringe) 25-50ML 25ML FOR ... UD PRN IV 01/13/18 17:45 02/12/18 17:44 Glucagon (Glucagon Inj) 1 mg UD PRN SQ 01/13/18 17:45 02/12/18 17:44 Carbohydrates (Carbohydrates For Hypoglycemia) 15-30 GRAMS 15 grams if BSG 54-69... UD PRN PO 01/13/18 17:45 02/12/18 17:44 Cefazolin Sodium 15 ml @ 3.75 mls/ min PREOP IV 01/14/18 06:00 01/14/18 18:00 Hydromorphone HCl (Dilaudid Inj) 0.5 mg Q1H PRN IV 01/13/18 21:30 01/27/18 21:29 01/14/18 08:37 0.5 MG Insulin Aspart (novoLOG ASPART) SLIDING SCALE G... Q6 SC 01/14/18 06:00 02/13/18 05:59 Review of Systems Constitutional: No fever, sweats or chills Eyes: No diplopia, no worsening or blurred vision ENT: normal hearing, no trouble swallowing Respiratory: No cough, sputum, dyspnea at rest or on exertion Cardiovascular: No chest pain, tightness or palpitations Abdomen: No pain, nausea, vomiting, diarrhea or constipation Musculoskeletal: Right ankle pain, calf pain, swelling Neurologic: Chronic cervical disc disease causing referred pain, no weakness, numbness/tingling, or balance problems Psychiatric: + Bipolar, anxiety Skin:+ rash/ itch RLE Physical Exam Date Time Temp Pulse Resp B/P (MAP) Pulse Ox O2 Delivery O2 Flow Rate FiO2 01/14/18 07:22 36.8 85 18 96/63 (74) 96 2.0 01/14/18 00:00 Nasal Cannula 2.0 01/13/18 23:00 36.9 97 18 145/82 (103) 97 Nasal Cannula 2.0 01/13/18 20:08 Room Air 01/13/18 20:00 Room Air 01/13/18 19:45 37.3 112 16 164/109 (127) 92 Room Air 01/13/18 19:04 103 20 151/103 93 Room Air 01/13/18 17:00 71 18 158/89 96 Room Air 01/13/18 15:41 36.8 71 22 163/86 96 Room Air General: awake, alert, no apparent distress, obese, poor hygiene Head: Normocephalic, atraumatic ENT: PERRL, EOMI, no pharyngeal exudate, mucous membranes moist, poor dentition Chest: Clear to auscultation, on room air, no adventitious breath sounds Cardiac: Regular rate and rhythm, no murmur, no JVD, normal peripheral pulses, good capillary refill Abdominal: NABS x 4 quadrants, soft, nontender to palpation, no rebound, guarding or tenderness Extremities: LLE in carmelo and boot, elevated, + slightly erythematous rash over R leg, no peripheral edema or erythema, calfs nontender to palpation Psych: Normal mood and affect Neuro: AAO x 3, strength intact bilaterally and related 5/5 other than noted weakness in the LLE due to pain/fracture, no motor deficits, speech is clear, no peripheral sensory deficits Laboratory Results Last 24 Hours Test 01/13/18 17:50 01/13/18 20:10 01/14/18 05:56 White Blood Count 12.69 K/uL Red Blood Count 4.43 M/uL Hemoglobin 11.9 g/dL Hematocrit 36.5 % Mean Corpuscular Volume 82.4 fL Mean Corpuscular Hemoglobin 26.9 pg Mean Corpuscular Hemoglobin Concent 32.6 g/dl Platelet Count 293 K/uL Mean Platelet Volume 8.8 fL Neutrophils (%) (Auto) 75.5 % Lymphocytes (%) (Auto) 17.8 % Monocytes (%) (Auto) 4.3 % Eosinophils (%) (Auto) 1.7 % Basophils (%) (Auto) 0.2 % Neutrophils # (Auto) 9.60 K/uL Lymphocytes # (Auto) 2.26 K/uL Monocytes # (Auto) 0.54 K/uL Eosinophils # (Auto) 0.21 K/uL Basophils # (Auto) 0.02 K/uL RDW Standard Deviation 46.4 fL RDW Coefficient of Variation 15.4 % Immature Granulocyte % (Auto) 0.5 % Immature Granulocyte # (Auto) 0.06 K/uL Prothrombin Time 10.1 SECONDS Prothromb Time International Ratio 1.0 Sodium Level 138 mmol/L Potassium Level 4.2 mmol/L Chloride Level 100 mmol/L Carbon Dioxide Level 30 mmol/L Anion Gap 8.0 mmol/L Blood Urea Nitrogen 7 mg/dl Creatinine 0.91 mg/dl Est Creatinine Clear Calc Drug Dose 91.7 ml/min Estimated GFR () 84.7 Estimated GFR (Non- 73.1 BUN/Creatinine Ratio 8.1 Random Glucose 114 mg/dl Calcium Level 9.4 mg/dl Bedside Glucose 124 mg/dl 96 mg/dl Assessment & Plan 53 yo F with L ankle trimalleolar fracture: - Scheduled for surgery today with Dr. Harris - Pain management, bowel regimen and DVT ppx per primary team - PT/ OT after surgery DM II - ISS with accuchecks q6h while npo and achs after surgery - Last A1C = 6.5 on 10/15/17 - recheck with am labs - Holding metformin 1000 mg BID - not on any other oral medications or insulin Ringworm - started on fluconazole 150 mg daily today and continue clotrimazole topically BID - benadryl prn for itching - no topical steroids. HTN HLD - BP appears stable, Asthma - Continue Advair, Proair inhalers Chronic back pain - Continue gabapentin 600 mg TID, hold meloxicam with impending surgery - can resume per primary team - Takes oxymorphone ER 20 mg Q12H and oxymorphone 10 mg Q6h at home for chronic pain- family bringing it in from home. - IV analgesia as per primary team for now Major depression Bipolar Anxiety - Continue cymbalta 90 mg, seroquel 75 mg HS, effexor 75 mg HS, and abilify 15 mg daily - Following with Dr. Lewis at [email or web address] - was taken off Luvox and ativan last Fall GERD Irritable Bowel syndrome - Cont ppi and ranitidine for gi ppx Morbid Obesity BMI of 42 - Diet and exercise to be encouraged after surgery - pt reports inability to exercise due to chronic cervical disc and back pain. CODE STATUS: Full DVT ppx: per primary team Disposition: From home, dc per primary team. Thank you for involving us in this consult, we will follow along. Reviewed: Pt Seen/Exam by Me History Physician Facility Operations Manager supervision Note: I interviewed and examined the patient. Discussed with FERNANDEZ Garcia and agree with findings and plan as documented in the note. Any exceptions or clarifications are listed here: Patient now postoperative from her left ankle repair. She reports she is feeling very well. Pain is controlled. Denies chest pain or shortness of breath. Reports the ringworm on her right leg did go away previously with a prescription antifungal cream, but after she stopped using the cream, it returned about 1 month ago. Vitals reviewed Gen: AAOx3, NAD, morbidly obese HEENT: anicteric sclerae, EOMI CV: RRR no mgr nl S1S2 Pulm: CTAB no wcr Ext: Left foot and ankle and leg in splint and Carmelo wrap not removed, right leg no edema Skin: Right lateral and posterior leg with multiple circular mildly erythematous 1-2 cm macular lesions 53-year-old female with history of chronic opioid dependence, chronic pain syndrome, morbid obesity, DM 2, asthma, GERD, major depressive disorder, bipolar disorder, and anxiety disorder, who sustained a fall with left trimalleolar fracture now status post repair today. -Mild leukocytosis on admission, repeat CBC tomorrow -Pain control with home meds and as per orthopedics, DVT prophylaxis with aspirin twice daily, follow-up with orthopedic surgery in 2 weeks -Continue other home medications for psychiatric disorders which are stable at this time -Glucose well controlled, check hemoglobin A1c in the morning, continue sliding scale insulin and restart home metformin on discharge -For tinea corporis-fluconazole discontinued. Mild case and should resolve with twice daily clotrimazole as ordered here-advised patient to continue using it topically twice daily at the affected site for at least 2 weeks after complete resolution of the lesions. Check LFTs in the morning in case terbinafine needs to be ordered for 250 mrem p.o. once daily for 2 week course as an outpatient if not resolving with topical creams Documented By: Sena Marin
[2018-01-14] MEDS ORDERED: FLUCONAZOLE 100 MG TAB PO SCH (12:00)
[2018-01-14] MEDS: CLOTRIMAZOLE 1% CR 15 GM TUBE EXT SCH ×2 (12:00→21:59)
[2018-01-14] MEDS ORDERED: OXYMORPHONE 10 MG PO PRN (12:45)
[2018-01-14] MEDS ORDERED: OPANA 10 MG PO PRN (12:45)
[2018-01-14] MEDS ORDERED: PROPOFOL IV EMULSION 10 MG/ML 20 ML VIAL ONE (12:50)
[2018-01-14] MEDS ORDERED: LIDOCAINE HCL 2% 2 ML VIAL (20MG/ML) ONE (12:50)
[2018-01-14] MEDS ORDERED: MIDAZOLAM HCL 1 MG/ML 2ML VIAL ONE (12:50)
[2018-01-14] MEDS ORDERED: FENTANYL CITRATE INJ 50 MCG/1 ML 2 ML VIAL ONE ×2 (12:50→14:48)
[2018-01-14] MEDS ORDERED: BUPIVACAINE/EPINEPHRINE 0.5% MPF 1:200,000 30 ML VIAL ONE (13:59)
[2018-01-14] MEDS ORDERED: ROPIVACAINE 0.5% 5 MG/ML 30 ML VIAL ONE (14:16)
--- NOTE | 2018-01-14 14:29 | History & Physical Bridge Note ---
H&P Re-Evaluation Bridge Note: I have examined the patient, reviewed the History & Physical and in the interval since the performance of the History & Physical I have noted the following changes of clinical significance: No changes noted
[2018-01-14] MEDS ORDERED: METOPROLOL TARTRATE 1 MG/ML VIAL ONE (14:52)
[2018-01-14] MEDS ORDERED: LARYING-O-JET KIT (LTA) ONE (15:04)
[2018-01-14] MEDS ORDERED: SUCCINYLCHOLINE CHLORIDE 20 MG/ML 10 ML VIAL IV ONE (15:04)
[2018-01-14] MEDS ORDERED: PHENYLEPHRINE 100MCG/ML 5ML SYR ONE (15:07)
[2018-01-14] MEDS ORDERED: EpHEDrine SULFATE 50MG/5ML SYR ONE (15:07)
[2018-01-14] MEDS ORDERED: LABETALOL HCL IV 5 MG/ML 20ML IV PRN (15:15)
[2018-01-14] MEDS ORDERED: EpHEDrine SULFATE INJ 50 MG/ML AMP IV PRN (15:15)
[2018-01-14] MEDS ORDERED: ONDANSETRON INJ 2 MG/ML 2 ML VIAL IV PRN ×2 (15:15→16:15)
[2018-01-14] MEDS ORDERED: HYDROmorphone INJ 0.5 MG/0.5 ML SYR IV PRN (15:15)
[2018-01-14] MEDS ORDERED: ATROPINE SULFATE 0.1 MG/ML 5ML SYR IV PRN (15:15)
[2018-01-14] MEDS ORDERED: FLUMAZENIL 0.1 MG/1 ML 10 ML VIAL IV PRN (15:15)
[2018-01-14] MEDS ORDERED: PROMETHAZINE HCL INJ 12.5 MG in SODIUM CHLORIDE 0.9% 50ML 50 ML IV PRN (15:15)
[2018-01-14] MEDS ORDERED: NALOXONE HCL 0.4 MG/1 ML VIAL/CARP IV PRN (15:15)
[2018-01-14] MEDS ORDERED: HYDROmorphone INJ 2 MG/ML SYR/VIAL ONE (15:47)
--- NOTE | 2018-01-14 16:03 | [facility] Post Operative Brief Note ---
Immediate Operative Summary Operative Date January 14, 2018. Pre-Operative Diagnosis Left displaced trimalleolar ankle fracture Post-Operative Diagnosis Left displaced trimalleolar ankle fracture Procedure(s) Performed Left Ankle Open Reduction Internal Fixation Surgeon Dr Chepe Harris Tab Cutter Surgeon(s) Leno Mera Estimated Blood Loss 20cc Findings Consistent with Post-Op Diagnosis Fluids (cc crystalloids) 900 cc Specimens None as per surgeon Drains None Anesthesia Type General Complication(s) none Disposition Accompanied Pt To Recover: no Disposition: Recovery Room / PACU
[2018-01-14] MEDS ORDERED: ZOLPIDEM TARTRATE 5 MG TAB PO PRN (16:15)
[2018-01-14] MEDS ORDERED: MAGNESIUM HYDROXIDE SUSP 30 ML UDC PO PRN (16:15)
[2018-01-14] MEDS ORDERED: BISACODYL 10 MG SUPP PR PRN (16:15)
[2018-01-14] MEDS ORDERED: METOCLOPRAMIDE HCL INJ 5 MG/ML 2 ML VIAL IV PRN (16:15)
[2018-01-14] MEDS ORDERED: DiphenhydrAMINE HCL 50 MG/ML VIAL IV PRN (16:15)
[2018-01-14] MEDS ORDERED: ALUMINUM/MAGNESIUM/SIMETH (MAALOX MAX) 30 ML UDC PO PRN (16:15)
--- NOTE | 2018-01-14 16:23 | DIAGNOSTIC IMAGING REPORT ---
L ANKLE MIN 3 VIEWS ROUTINE CLINICAL HISTORY: LT ANKLE ORIF pain. Fracture. TECHNIQUE: Image intensifier COMPARISON STUDY: 01/13/2018 FINDINGS: Open reduction internal fixation of the distal fibular fracture. Ankle mortise is aligned appropriately. Small avulsion identified at the medial malleolus. IMPRESSION: Anatomic alignment post open reduction internal fixation of a lateral malleolar fracture. Small avulsion tip medial malleolus. The above report was generated using voice recognition software. It may contain grammatical, syntax or spelling errors. Electronically signed by: Edin Barrientos M.D. 01/14/2018 4:22 PM Dictated Date/Time: 01/14/2018 4:21 PM
--- NOTE | 2018-01-14 17:10 | Anesthesiology Progress Note ---
Anesthesia Post Op Note Date & Time January 14, 2018 at 17:09 Vital Signs Pain Intensity: 0 Vital Signs Past 12 Hours Date Time Temp Pulse Resp B/P (MAP) Pulse Ox O2 Delivery O2 Flow Rate FiO2 01/14/18 16:56 106 17 01/14/18 16:56 106 17 94/64 96 01/14/18 16:51 106 16 95 01/14/18 16:51 106 16 01/14/18 16:50 98/73 01/14/18 16:46 106 14 01/14/18 16:46 106 14 94 01/14/18 16:45 121/66 01/14/18 16:41 106 16 99 01/14/18 16:41 105 16 01/14/18 16:40 114/74 01/14/18 16:36 107 15 98 01/14/18 16:36 106 15 01/14/18 16:35 126/80 01/14/18 16:34 107 13 98 01/14/18 16:34 108 13 01/14/18 16:31 121/77 01/14/18 16:29 109 14 98 01/14/18 16:29 109 14 01/14/18 16:25 118/75 01/14/18 16:24 106 12 01/14/18 16:24 106 12 97 01/14/18 16:20 133/63 01/14/18 16:19 114 19 01/14/18 16:19 114 19 137/84 100 01/14/18 16:19 36.5 106 14 133/63 96 Oxymask 10 01/14/18 07:30 Room Air 01/14/18 07:22 36.8 85 18 96/63 (74) 96 2.0 Notes Mental Status: alert / awake / arousable, participated in evaluation Pt Amnestic to Procedure: Yes Nausea / Vomiting: adequately controlled Pain: adequately controlled Airway Patency, RR, SpO2: stable & adequate BP & HR: stable & adequate Hydration State: stable & adequate Anesthetic Complications: no major complications apparent
[2018-01-14] MEDS: POTASSIUM CHLORIDE INJ 10 MEQ in SODIUM CHLORIDE 0.9% 1000ML 1,000 ML IV SCH (17:52)
[2018-01-14] MEDS ORDERED: NURSING VERBAL MED ORDER ONE (18:00)
[2018-01-14] MEDS: KETOROLAC TROMETHAMINE 30 MG/ML VIAL IV. SCH (18:03)
[2018-01-14] MEDS ORDERED: ASPEC325 PO (20:10)
[2018-01-14] MEDS ORDERED: OXYC-57 PO (20:10)
--- NOTE | 2018-01-14 20:16 | Discharge Instructions ---
Discharge Instructions Date of Service January 14, 2018. Admission Reason for Admission: Left Trimalleloar Ankle Fx Discharge Discharge Diagnosis / Problem: ORIF Left Ankle Fracture Discharge Goals Goal(s): Decrease discomfort, Improve function, Increase independence, Improve disease control, Therapeutic intervention Activity Recommendations Activity Limitations: per Instructions/Follow-up section Weightbearing Status: Left non-weightbearing . Instructions / Follow-Up Instructions / Follow-Up Non-weight bearing on Left Ankle Keep splint clean, dry, and in place Elevate foot as much as possible Return to clinic appointment 2 weeks from surgery date. Current Hospital Diet Patient's current hospital diet: Diabetes Type 2 Diet Discharge Diet Recommended Diet: Diabetes Type 2 Diet Procedures Procedures Performed: Left Ankle Open Reduction Internal Fixation Pending Studies Studies pending at discharge: no Medical Emergencies . Who to Call and When: Medical Emergencies: If at any time you feel your situation is an emergency, please call 911 immediately. . Non-Emergent Contact Non-Emergency issues call your: Surgeon . "Provider Documentation" section prepared by Chepe Harris. .
[2018-01-14] MEDS ORDERED: SENNA 8.6 MG TAB PO SCH (21:00)
[2018-01-14] MEDS ORDERED: DOCUSATE SODIUM 100 MG CAP PO SCH (21:00)
[2018-01-14] MEDS: ASPIRIN 325 MG ECTAB PO SCH (22:00)
[2018-01-14] MEDS: OXYMORPHONE HCL 20 MG PO SCH (22:00)
[2018-01-14] MEDS: OPANA 20 MG PO SCH (22:01)
[2018-01-14] MEDS: RANITIDINE HCL 150 MG TAB PO SCH (22:02)
[2018-01-14] MEDS: QUETIAPINE FUMARATE 25 MG TAB PO SCH (22:02)
[2018-01-14] MEDS: ATORVASTATIN 20 MG TAB PO SCH (22:03)
[2018-01-14] MEDS: CEFAZOLIN IV 2,000 MG in SYRINGE 0 ML IV SCH (22:10)
[2018-01-15] MEDS: KETOROLAC TROMETHAMINE 30 MG/ML VIAL IV. SCH ×2 (00:08→05:59)
[2018-01-15] MEDS: POTASSIUM CHLORIDE INJ 10 MEQ in SODIUM CHLORIDE 0.9% 1000ML 1,000 ML IV SCH ×2 (03:49→12:36)
[2018-01-15 03:54] VITALS: BP 109/70; PULSE 77; TEMP 36.7; O2SAT 92
[2018-01-15] MEDS: CEFAZOLIN IV 2,000 MG in SYRINGE 0 ML IV SCH (06:00)
[2018-01-15 07:34] VITALS: BP 123/75; PULSE 82; TEMP 37; O2SAT 97
[2018-01-15 07:35] LABS: BASO % 0.1 %; BASO ABS # 0.01 K/uL (0-0.2); HEMATOCRIT 30.8 % (37-47); IG# 0.05 K/uL (0.00-0.02); LYMPH % 13.6 %; LYMPH ABS # 1.95 K/uL (1.2-3.4); MEAN CORPUSCULAR HGB CONC 32.5 g/dl (32-36); MEAN PLATELET VOLUME 8.7 fL (7.4-10.4); MONO % 4.4 %; MONO ABS # 0.63 K/uL (0.11-0.59); NEUT % 81.6 %; NEUT ABS # 11.75 K/uL (1.4-6.5); PLATELET COUNT 269 K/uL (130-400); RED CELL DISTRIBUTION WIDTH CV 15.4 % (11.5-14.5); RED CELL DISTRIBUTION WIDTH SD 46.8 fL (36.4-46.3); WHITE BLOOD COUNT 14.39 K/uL (4.8-10.8)
[2018-01-15 07:39] LABS: HEMOGLOBIN A1C 6.4 % (4.5-5.6)
--- NOTE | 2018-01-15 08:03 | OPERATIVE REPORT ---
DATE OF OPERATION: 01/14/2018 SURGEON: Chepe Harris MD ACETALDEHYDE CONVERTER OPERATOR: FERNANDEZ Negron PREOPERATIVE DIAGNOSIS: Displaced left trimalleolar ankle fracture. POSTOPERATIVE DIAGNOSIS: Displaced left trimalleolar ankle fracture. PROCEDURE PERFORMED: Open reduction internal fixation of left trimalleolar ankle fracture. COMPLICATIONS: None. ESTIMATED BLOOD LOSS: 20 mL. FLUID REPLACEMENT: 900 mL crystalloid fluid replacement. TOURNIQUET TIME: 31 minutes at 300 mmHg. ANESTHESIA: General. SPECIMENS: None. OPERATIVE INDICATIONS: The patient is a 53-year-old female with multiple medical comorbidities who sustained an injury to her ankle last evening. Her right leg fell asleep and she lost her balance and fell and injured her left ankle at home. She could not ambulate afterwards. She was brought to Emergency Room, where x-ray was with a left displaced trimalleolar ankle fracture. The patient is indicated for surgical treatment. OPERATIVE IMPLANTS: 1. A Synthes 8-hole 1/3 semitubular stainless steel locking plate. 2. A 3.5 fully threaded cortical screws x5. 3. A 4.0 fully threaded cancellous screw x2. OPERATIVE FINDINGS: The operative findings reveal a left trimalleolar ankle fracture. There is a very small medial malleolus fracture that I did not think I could help by fixing. There was an unstable Mcbride B ankle fracture and a very small posterior malleolus fracture which did not need fixed. OPERATIVE PROCEDURE: The patient taken to the operating room, identified and placed on operative table in supine position. All contact areas were appropriately padded. IV antibiotics were provided by anesthesia team. A general anesthetic was implemented by anesthesia team. A left thigh tourniquet was then placed. Left lower extremity was then prepped and draped in usual sterile fashion. We did scrub the leg/foot initially with Hibiclens and then prepped with ChloraPrep. Left leg was elevated and exsanguinated with the Esmarch and tourniquet was placed at 300 mmHg. Direct lateral approach to the fibula was then performed through a longitudinal incision in the posterolateral border of the fibula. Sharp dissection was carried through the subcutaneous tissue down to the level of the periosteum. I incised the periosteum laterally and stripped the soft tissues off the anterior and posterior aspects of the fracture site. I tried to minimize stripping of the fracture as much as possible. I then irrigated the fracture of all clot. I then applied some longitudinal traction to the distal piece and reduced the fibula anatomically. It was held with 2 reduction clamps. I fixed it with a single 3.5 mm lag screw from anterior to posterior. I then contoured an 8-hole 1/3 semitubular plate to the lateral aspect of the fibula. I fixed it proximally with four 3.5 fully threaded cortical screws and then distally with 2 fully threaded cancellous screws. This provided excellent fixation. I then stressed the ankle mortise. There was no gapping of the medial clear space. She did have a small bony avulsion of medial malleolus, which I did not think needed fixed. There is no need for syndesmosis screw fixation. A small posterior malleolus fracture was stable and reduced after fibula fixation. I injected locally with 30 mL of 0.5% Marcaine with epinephrine. The periosteum over the fibula plate was closed with 0 Vicryl suture in a [id number] fashion. The tourniquet was then let down for a total time of 31 minutes. Hemostasis was assured with use of electrocautery. The wound was once again irrigated. The subcutaneous tissue was then closed with 2-0 Dexon suture in a buried interrupted fashion. Skin was closed with 3-0 nylon suture in a simple fashion. The leg was then cleaned and dried and a sterile dressing of Xeroform, 4 x 4's, sterile cast padding, and a well-padded posterior and stirrup splint were applied. The patient then brought out of general anesthesia and transferred to the recovery room in stable condition. The patient tolerated the procedure well with no complications. All needle and sponge counts were correct at the end of the operation. I attest to the content of the Intraoperative Record and any orders documented therein. Any exceptions are noted below. JOHN
[2018-01-15 08:12] LABS: ALBUMIN 2.8 gm/dl (3.4-5.0); ALT/SGPT 20 U/L (12-78); AST/SGOT 27 U/L (15-37); CALCIUM 8.2 mg/dl (8.5-10.1); CARBON DIOXIDE 27 mmol/L (21-32); CREATININE 0.88 mg/dl (0.60-1.20); GLUCOSE 117 mg/dl (70-99); POTASSIUM 3.9 mmol/L (3.5-5.1); SODIUM 138 mmol/L (136-145)
[2018-01-15 08:15] LABS: ALKALINE PHOSPHATASE 61 U/L (45-117)
[2018-01-15 08:30] LABS: BLOOD UREA NITROGEN 11 mg/dl (7-18)
[2018-01-15] MEDS: CLOTRIMAZOLE 1% CR 15 GM TUBE EXT SCH (08:47)
[2018-01-15] MEDS: ASPIRIN 325 MG ECTAB PO SCH (08:48)
[2018-01-15] MEDS: VENLAFAXINE HCL XR 75 MG CAPXR PO SCH (08:48)
[2018-01-15] MEDS: ARIPIprazole TAB 15 MG TAB PO SCH (08:48)
[2018-01-15] MEDS: DOCUSATE SODIUM 100 MG CAP PO SCH (08:48)
[2018-01-15] MEDS: DULOXETINE HCL 60 MG CAP PO SCH (08:48)
[2018-01-15] MEDS: DULOXETINE (CYMBALTA) 30 MG CAP PO SCH (08:48)
[2018-01-15] MEDS: OXYMORPHONE HCL 20 MG PO SCH (08:49)
[2018-01-15] MEDS: GABAPENTIN 300 MG CAP PO SCH (08:49)
[2018-01-15] MEDS: PANTOprazole SOD 40 MG TAB PO SCH (08:50)
[2018-01-15] MEDS: OPANA 20 MG PO SCH (08:50)
[2018-01-15] MEDS: INSULIN ASPART 100 UNITS/ML 3 ML PEN SC SCH (08:52)
[2018-01-15] MEDS ORDERED: MULTIVITAMIN TAB PO SCH (09:00)
[2018-01-15] MEDS ORDERED: PANTOprazole SOD 40 MG TAB PO SCH (09:00)
--- NOTE | 2018-01-15 09:01 | PROGRESS NOTE ---
DATE: 01/15/2018 SUBJECTIVE: A 53-year-old white female postop day 1 from ORIF of left ankle fracture. She is doing well. Pain is controlled. Has not been to therapy yet. No chest pain or shortness of breath. Not feeling dizzy or lightheaded. OBJECTIVE: VITAL SIGNS: Temperature is 37.0. Vital signs stable. PHYSICAL EXAMINATION: GENERAL: Reveals a pleasant, middle-aged female. She is lying in bed, looks pretty comfortable. LUNGS: Clear to auscultation. HEART: Regular rate and rhythm. ABDOMEN: Soft, nontender, nondistended. EXTREMITIES: Grossly neurovascularly intact except as follows: Examination of the left lower extremity reveals the splint to be in place. She can flex and extend her toes appropriately without any significant pain. She is neurologically intact. LABORATORY DATA: Hemoglobin 10.0. Hematocrit 30.8. Electrolytes are stable. ASSESSMENT: A 53-year-old white female with multiple medical comorbidities postop day 1 from a left ankle ORIF, doing reasonably well. She still has to go to therapy. She should be good for discharge after therapy. PLAN: 1. DVT prophylaxis including thigh-high TEDs, SCDs, and aspirin twice a day. 2. PT/OT. She is nonweightbearing for the first 2 weeks. 3. Medical management as per the medicine service. 4. Disposition: She is planning to be discharged to home after therapy.
--- NOTE | 2018-01-15 09:18 | Hospitalist Progress Note ---
Hospitalist Progress Note Date of Service January 15, 2018. (Viji Garcia PA-C) Subjective Pt evaluation today including: conversation w/ patient, conversation w/ family , physical exam, chart review, lab review, review of studies Pain: Mild L ankle PO Intake: good Voiding: no voiding problems The patient was seen and examined this morning. Pt reports doing well. Pain well controlled. Tolerating pain without difficulty as she has been placed on her chronic narcotic regimen again. Had BM last night, +flatus. Discussed using clotrimazole lotion BID x 2 weeks past resolution of the rash/ lesions. Rx sent. All questions and concerns were addressed. Additional Comments: Constitutional: No fever, sweats or chills Eyes: No diplopia, no worsening or blurred vision ENT: normal hearing, no trouble swallowing Respiratory: No cough, sputum, dyspnea at rest or on exertion Cardiovascular: No chest pain, tightness or palpitations Abdomen: No pain, nausea, vomiting, diarrhea or constipation Musculoskeletal: Right ankle pain, calf pain, swelling Neurologic: Chronic cervical disc disease causing referred pain, no weakness, numbness/tingling, or balance problems Psychiatric: + Bipolar, anxiety Skin:+ rash/ itch RLE (Viji Garcia PA-C) Objective Vital Signs Date Time Temp Pulse Resp B/P (MAP) Pulse Ox O2 Delivery O2 Flow Rate FiO2 01/15/18 07:34 37.0 82 18 123/75 (91) 97 Room Air 01/15/18 03:54 36.7 77 18 109/70 (83) 92 Room Air 01/15/18 00:15 Nasal Cannula 2.0 01/14/18 23:24 94 Nasal Cannula 2.0 01/14/18 23:20 36.9 99 16 103/66 (78) 94 Nasal Cannula 2.0 01/14/18 23:17 94 Nasal Cannula 2.0 01/14/18 22:52 36.5 89 16 124/82 (96) 91 Nasal Cannula 2.0 01/14/18 20:10 37.2 96 18 133/83 (100) 97 Nasal Cannula 2.0 01/14/18 18:48 94 113/77 (89) 95 Nasal Cannula 2.0 01/14/18 18:09 37.2 99 18 119/76 (90) 95 Nasal Cannula 2.0 01/14/18 17:21 118/70 01/14/18 17:17 103 16 98 01/14/18 17:17 103 16 01/14/18 17:15 127/69 01/14/18 17:13 36.7 95 Nasal Cannula 4 01/14/18 17:12 101 15 95 01/14/18 17:12 101 15 01/14/18 17:11 116/68 01/14/18 17:07 104 14 01/14/18 17:07 105 14 96 01/14/18 17:05 127/65 01/14/18 17:02 104 12 01/14/18 17:02 105 12 95 01/14/18 17:00 105/74 01/14/18 16:58 129/67 01/14/18 16:57 106 25 01/14/18 16:57 106 25 94 01/14/18 16:56 106 17 01/14/18 16:56 106 17 94/64 96 01/14/18 16:51 106 16 95 01/14/18 16:51 106 16 01/14/18 16:50 98/73 01/14/18 16:46 106 14 01/14/18 16:46 106 14 94 01/14/18 16:45 121/66 01/14/18 16:41 106 16 99 01/14/18 16:41 105 16 01/14/18 16:40 114/74 01/14/18 16:36 107 15 98 01/14/18 16:36 106 15 01/14/18 16:35 126/80 01/14/18 16:34 107 13 98 01/14/18 16:34 108 13 01/14/18 16:31 121/77 01/14/18 16:29 109 14 98 01/14/18 16:29 109 14 01/14/18 16:25 118/75 01/14/18 16:24 106 12 01/14/18 16:24 106 12 97 01/14/18 16:20 133/63 01/14/18 16:19 114 19 01/14/18 16:19 114 19 137/84 100 01/14/18 16:19 36.5 106 14 133/63 96 Oxymask 10 (Viji Garcia, PA-C) Physical Exam Notes: General: awake, alert, no apparent distress, obese, poor hygiene Head: Normocephalic, atraumatic ENT: PERRL, EOMI, no pharyngeal exudate, mucous membranes moist, poor dentition Chest: Clear to auscultation, on room air, no adventitious breath sounds Cardiac: Regular rate and rhythm, no murmur, no JVD, normal peripheral pulses, good capillary refill Abdominal: NABS x 4 quadrants, soft, nontender to palpation, no rebound, guarding or tenderness Extremities: LLE in CARMELO, elevated, + slightly erythematous rash over R leg, no peripheral edema or erythema, calfs nontender to palpation Psych: Normal mood and affect Neuro: AAO x 3, strength intact bilaterally and related 5/5 other than noted weakness in the LLE due to pain/fracture, no motor deficits, speech is clear, no peripheral sensory deficits (Viji Garcia PA-C) Laboratory Results Last 24 Hours Test 01/14/18 12:39 01/14/18 16:40 01/14/18 18:01 01/14/18 21:35 Bedside Glucose 127 mg/dl 178 mg/dl 159 mg/dl 150 mg/dl Test 01/15/18 07:17 White Blood Count 14.39 K/uL Red Blood Count 3.71 M/uL Hemoglobin 10.0 g/dL Hematocrit 30.8 % Mean Corpuscular Volume 83.0 fL Mean Corpuscular Hemoglobin 27.0 pg Mean Corpuscular Hemoglobin Concent 32.5 g/dl Platelet Count 269 K/uL Mean Platelet Volume 8.7 fL Neutrophils (%) (Auto) 81.6 % Lymphocytes (%) (Auto) 13.6 % Monocytes (%) (Auto) 4.4 % Eosinophils (%) (Auto) 0.0 % Basophils (%) (Auto) 0.1 % Neutrophils # (Auto) 11.75 K/uL Lymphocytes # (Auto) 1.95 K/uL Monocytes # (Auto) 0.63 K/uL Eosinophils # (Auto) 0.00 K/uL Basophils # (Auto) 0.01 K/uL RDW Standard Deviation 46.8 fL RDW Coefficient of Variation 15.4 % Immature Granulocyte % (Auto) 0.3 % Immature Granulocyte # (Auto) 0.05 K/uL Sodium Level 138 mmol/L Potassium Level 3.9 mmol/L Chloride Level 102 mmol/L Carbon Dioxide Level 27 mmol/L Anion Gap 9.0 mmol/L Blood Urea Nitrogen 11 mg/dl Creatinine 0.88 mg/dl Est Creatinine Clear Calc Drug Dose 94.7 ml/min Estimated GFR () 88.2 Estimated GFR (Non- 76.1 BUN/Creatinine Ratio 13.0 Random Glucose 117 mg/dl Estimated Average Glucose 137 mg/dl Hemoglobin A1c 6.4 % Calcium Level 8.2 mg/dl Total Bilirubin 0.4 mg/dl Direct Bilirubin < 0.1 mg/dl Aspartate Amino Transf (AST/SGOT) 27 U/L Alanine Aminotransferase (ALT/SGPT) 20 U/L Alkaline Phosphatase 61 U/L Total Protein 7.0 gm/dl Albumin 2.8 gm/dl (Viji Garcia, PAOsmar) Assessment and Plan 53 yo F with L ankle trimalleolar fracture: - S/p surgical intervention 01/14 for ankle fixation by Dr. Harris, POD #2 - Pain management, bowel regimen and DVT with asa BID ppx per primary team - PT/ OT after surgery - She is nonweightbearing for the first 2 weeks DM II - ISS with accuchecks q6h while npo and achs after surgery - Last A1C = 6.4 on 01/15/18 - Holding metformin 1000 mg BID - not on any other oral medications or insulin - can resume upon discharge Ringworm - continue clotrimazole topically BID- Mild case and should resolve with twice daily clotrimazole as ordered here-advised patient to continue using it topically twice daily at the affected site for at least 2 weeks after complete resolution of the lesions. - LFTs are WNL - consider terbinafine 250 mg p.o. once daily for 2 week course as an outpatient if not resolving with topical creams HTN HLD - BP appears stable Asthma - Continue Advair, Proair inhalers Chronic back pain - Continue gabapentin 600 mg TID, hold meloxicam with impending surgery - can resume per primary team - Takes oxymorphone ER 20 mg Q12H and oxymorphone 10 mg Q6h at home for chronic pain- family bringing it in from home. - IV analgesia as per primary team for now Major depression Bipolar Anxiety - Continue cymbalta 90 mg, seroquel 75 mg HS, effexor 75 mg HS, and abilify 15 mg daily - Following with Dr. Townsend at [facility] - was taken off Luvox and ativan last Fall - psychiatric sx are stable at this time GERD Irritable Bowel syndrome - Cont ppi and ranitidine for gi ppx Morbid Obesity BMI of 42 - Diet and exercise to be encouraged after surgery - pt reports inability to exercise due to chronic cervical disc and back pain. CODE STATUS: Full DVT ppx: per primary team Disposition: From home, dc per primary team. (Viji Garcia, RAJNI) Reviewed: Pt Seen/Exam by Me (Sena Marin MD) History Physician Hat Former supervision Note: I interviewed and examined the patient. Discussed with FERNANDEZ Garcia and agree with findings and plan as documented in the note. Any exceptions or clarifications are listed here: Doing very well, pain controlled and is being discharged home today No other complaints Vitals reviewed Gen: AAOx3, NAD, morbidly obese HEENT: anicteric sclerae EXT: Left leg and ankle in splint with Carmelo wrap 53-year-old female with history of chronic opioid dependence, chronic pain syndrome, morbid obesity, DM 2, asthma, GERD, major depressive disorder, bipolar disorder, and anxiety disorder, who sustained a fall with left trimalleolar fracture now status post repair-doing well -Stable for discharged home today -Mild leukocytosis likely stress response due to recent surgery-not worrisome -Pain control with home meds and as per orthopedics, DVT prophylaxis with aspirin twice daily, follow-up with orthopedic surgery in 2 weeks -Continue other home medications for psychiatric disorders which are stable at this time -Glucose well controlled, hemoglobin A1c is excellent, restart home metformin on discharge -For tinea corporis- mild case and should resolve with twice daily clotrimazole as ordered here-advised patient to continue using it topically twice daily at the affected site for at least 2 weeks after complete resolution of the lesions. Documented By: Sena Marin (Sena Marin MD)
--- NOTE | 2018-01-15 10:37 | Anesthesiology Progress Note ---
Anesthesia Post Op Note Date & Time January 15, 2018 at 10:36 Vital Signs Pain Intensity: 0.0 Vital Signs Past 12 Hours Date Time Temp Pulse Resp B/P (MAP) Pulse Ox O2 Delivery O2 Flow Rate FiO2 01/15/18 07:34 37.0 82 18 123/75 (91) 97 Room Air 01/15/18 03:54 36.7 77 18 109/70 (83) 92 Room Air 01/15/18 00:15 Nasal Cannula 2.0 01/14/18 23:24 94 Nasal Cannula 2.0 01/14/18 23:20 36.9 99 16 103/66 (78) 94 Nasal Cannula 2.0 01/14/18 23:17 94 Nasal Cannula 2.0 01/14/18 22:52 36.5 89 16 124/82 (96) 91 Nasal Cannula 2.0 Notes Mental Status: alert / awake / arousable, participated in evaluation Pt Amnestic to Procedure: Yes Nausea / Vomiting: adequately controlled Pain: adequately controlled Airway Patency, RR, SpO2: stable & adequate BP & HR: stable & adequate Hydration State: stable & adequate Anesthetic Complications: no major complications apparent
[2018-01-15] MEDS: OXYCODONE/ACETAMINOPHEN 5-325 TAB PO PRN (10:39)
[2018-01-15 12:38] VITALS: BP 123/75; PULSE 82; TEMP 37; O2SAT 97
[2018-01-15] MEDS ORDERED: LTRCR45 EXT (13:25)
[2018-01-20] MEDS ORDERED: CHOLECALCIFEROL 1000 INTER.UNIT TAB PO SCH (09:00)
== END 2018-01-15 13:15 | disposition home or self-care (01) | DRG 493 ==
LOC: C.EDB 15:33 → UNDOADMIN 17:41 → C.MSW 17:41 → ENRESERV 18:11
PROVIDERS: ADMIT Orthopaedic Surgery Sports Medicine; ATTEND Orthopaedic Surgery Sports Medicine
PROC: 0SSG04Z Reposition Left Ankle Joint with Internal Fixation Device, Open Approach (ICD-10-PCS; principal; 2018-01-14 09:45)
DX: S82.852A Displaced trimalleolar fracture of left lower leg, initial encounter for closed fracture (principal); Z68.41 Body mass index [BMI] 40.0-44.9, adult; F11.20 Opioid dependence, uncomplicated; E11.9 Type 2 diabetes mellitus without complications; K21.9 Gastro-esophageal reflux disease without esophagitis; I10 Essential (primary) hypertension; E78.5 Hyperlipidemia, unspecified; F41.9 Anxiety disorder, unspecified; F31.9 Bipolar disorder, unspecified; J45.909 Unspecified asthma, uncomplicated; G89.4 Chronic pain syndrome; Z79.899 Other long term (current) drug therapy; E66.01 Morbid (severe) obesity due to excess calories; K58.9 Irritable bowel syndrome, unspecified; W19.XXXA Unspecified fall, initial encounter

== ENCOUNTER 2024-12-16 14:08 | Inpatient (IN) ==
[2024-12-16 15:01] LABS: Basophils # (auto) 0.04 K/uL (0.00-0.20); Basophils % (auto) 0.3 %; Eosinophils # (auto) 0.39 K/uL (0.00-0.50); Eosinophils % (auto) 2.8 %; Hematocrit (blood only) 37.8 % (37.0-47.0); Hemoglobin 12.4 g/dl (12.0-16.0); Immature Granulocytes # (auto) 0.06 K/uL (0.01-0.20); Immature Granulocytes % (auto) 0.4 %; Lymphocytes # (auto) 2.27 K/uL (1.20-3.40); Lymphocytes % (auto) 16.2 %; Mean Corpuscular Hemoglobin 27.7 pg (25.0-34.0); Mean Corpuscular Hgb Conc 32.8 g/dL (32.0-36.0); Mean Corpuscular Volume 84.6 fL (80.0-100.0); Monocytes # (auto) 0.96 K/uL (0.11-0.59); Monocytes % (auto) 6.9 %; Neutrophils # (auto) 10.29 K/uL (1.40-6.50); Neutrophils % (auto) 73.4 %; Platelet Count 336 K/uL (130-400); RDW Coefficient of Variation 14.6 % (11.5-14.5); RDW Standard Deviation 44.9 fL (36.4-46.3); Red Blood Count 4.47 M/uL (4.20-5.40); White Blood Count 14.01 K/ul (4.8-10.8)
[2024-12-16 15:16] LABS: Appearance Urine Clear (Clear); Bacteria Urine Automated None Seen (None Seen); Bilirubin Urine Negative (Negative); Blood Urine Negative (Negative); Cast Urine Automated 0-2 /lpf (0-2); Color Urine Yellow; Epithelial Cell Urine Auto 0-2 /hpf (0-2); Glucose Urine UA Negative (Negative); Ketones Urine Negative (Negative); Leukocyte Esterase Urine 2+ (Negative); Nitrite Urine Negative (Negative); Protein Urine Negative (Negative); RBC Urine Automated 0-2 /hpf (0-2); Specific Gravity Urine 1.005 (1.000-1.030); Urobilinogen Urine Negative (Negative); pH Urine 8.5 (4.5-7.5)
[2024-12-16 15:18] LABS: Alanine Aminotransferase 30 U/L (7-52); Albumin Globulin Ratio 1.1 (0.9-2); Albumin Level 4.1 gm/dl (3.4-5.0); Alkaline Phosphatase 66 U/L (34-104); Anion Gap 7 (3-11); Aspartate Aminotransferase 26 U/L (13-39); BUN Creatinine Ratio 9.3 (10-20); Bilirubin,Total 0.4 mg/dl (0.2-1.0); Blood Urea Nitrogen 5 mg/dl (6-23); Calcium 9.2 mg/dl (8.6-10.3); Carbon Dioxide 33 mmol/L (21-32); Chloride 91 mmol/L (98-107); Globulin 3.8 gm/dl (2.5-4.0); Glucose 119 mg/dl (70-99(Fasting)); Lipase 79 U/L (11-82); Potassium 4.3 mmol/L (3.5-5.1); Sodium 131 mmol/L (136-145); Total Protein 7.9 gm/dl (6.0-8.3)
--- NOTE | 2024-12-16 16:58 | Emergency Department Note ---
History of Present Illness General Chief complaint: Abdominal Pain Stated complaint: ABD PAIN,DARK STOOL Time Seen by Provider: 12/16/24 16:28 History of Present Illness Maximum Pain Intensity: 5 Patient is a 59-year-old female with past medical history significant for diabetes, dyslipidemia, depression, anxiety, hypertension, asthma, GERD, IBS, among other chronic medical problems who presents to the emergency department accompanied by family for evaluation of abdominal pain x 3 days. She reports bilateral lower abdominal pain that started on Sunday. It is a constant, aching pain. She rates her discomfort a 5/10. She feels like she is bloated. No nausea or vomiting, appetite has been normal. She has not had any fevers. She does have IBS, is on Nexium, Pepcid and stool softeners chronically for this. Typically she has about 3 bowel movements per day, but since the pain started she is only had 1. Stools are dark, not but not frankly black, and upon further questioning the dark stools did not start until after she tried Pepto- Bismol for her symptoms. She is tried eating a bland diet, drinking parmjit jak and tried [place], without relief. She denies any urinary symptoms. She had a clean colonoscopy several years ago and denies any known history of diverticular disease. History of cholecystectomy and tubal ligation. Home Medications Medication Instructions Recorded Confirmed Type venlafaxine 75 mg tablet 225 mg PO DAILY 04/29/20 12/16/24 History mecobalamin (vitamin B12) 1,000 2,000 mcg (2 x 1,000 mcg) PO DAILY 12/20/22 12/16/24 Rx mcg chewable tablet (B12 Active) #30 tabs cinnamon bark 500 mg capsule 1,000 mg PO DAILY 02/20/23 12/16/24 History (Cinnamon) aripiprazole 15 mg tablet 15 mg PO DAILY 09/11/23 12/16/24 History fexofenadine 180 mg tablet 180 mg PO DAILY 09/11/23 12/16/24 History ([facility] Allergy) omega-3 fatty acids 500 mg capsule 1,000 mg PO DAILY 09/11/23 12/16/24 History back brace #1 ea 10/12/23 11/16/24 Rx trazodone 50 mg tablet 50 mg PO HS PRN Sleep 12/21/23 12/16/24 History fluvoxamine 150 mg 150 mg PO DAILY 10/10/24 12/16/24 History capsule,extended release 24 hr atorvastatin 40 mg tablet 40 mg PO QPM #90 tabs 10/15/24 12/16/24 Rx meclizine 25 mg tablet 25 mg PO DAILY PRN dizziness #90 10/15/24 12/16/24 Rx tabs primidone 250 mg tablet 250 mg PO TID 90 days #270 tabs 10/15/24 12/16/24 Rx albuterol sulfate 90 mcg/actuation 1 puff inhalation Q4H PRN 10/16/24 12/16/24 Rx aerosol inhaler shortness of breath or wheezing #3 Inhalers famotidine 40 mg tablet 40 mg PO DAILY 90 days #90 tabs 10/16/24 12/16/24 Rx fluticasone 500 mcg-salmeterol 50 1 inh inhalation BID #3 Inhalers 10/16/24 12/16/24 Rx mcg/dose blistr powdr for inhalation (Advair Diskus) fluticasone propionate 50 1 spray intranasal Q12H PRN nasal 10/16/24 12/16/24 Rx mcg/actuation nasal congestion #3 BTLS spray,suspension blood sugar diagnostic (OneTouch #100 ea 10/20/24 11/16/24 Rx Verio test strips) furosemide 20 mg tablet 20 mg PO DAILY #90 tabs 10/20/24 12/16/24 Rx gabapentin 300 mg capsule 300 mg PO QID #360 caps 10/20/24 12/16/24 Rx lancets 33 gauge #100 ea 10/20/24 11/16/24 Rx metformin 500 mg tablet 1,000 mg (2 x 500 mg) PO BID #360 10/20/24 12/16/24 Rx tabs celecoxib 200 mg capsule 200 mg PO DAILY 12/16/24 12/16/24 History cholecalciferol (vitamin D3) 25 3,000 units PO WK 12/16/24 12/16/24 History mcg (1,000 unit) capsule clotrimazole-betamethasone 1 1 applic topical BID PRN Skin 12/16/24 12/16/24 History %-0.05 % topical cream Irritation dulaglutide 3 mg/0.5 mL 3 mg subcut WK 12/16/24 12/16/24 History subcutaneous pen injector esomeprazole magnesium 40 mg 40 mg PO DAILY 12/16/24 12/16/24 History capsule,delayed release gabapentin 600 mg tablet 600 mg PO QID 12/16/24 12/16/24 History miconazole nitrate 2 % topical 1 applic topical BID PRN Skin 12/16/24 12/16/24 History cream Irritation nemolizumab-ilto 30 mg 30 mg subcut MONTHLY 12/16/24 12/16/24 History subcutaneous pen injector (Nemluvio) nystatin 100,000 unit/gram topical 1 applic topical DAILY PRN Skin 12/16/24 12/16/24 History powder Irritation nystatin-triamcinolone 100,000 1 applic topical BID PRN Skin 12/16/24 12/16/24 History unit/g-0.1 % topical cream Irritation triamcinolone acetonide 0.1 % 1 applic topical DAILY PRN Skin 12/16/24 12/16/24 History lotion Irritation Allergies Allergy/AdvReac Type Severity Reaction Status Date / Time fentanyl Allergy Severe SHORTNESS Verified 12/16/24 18:30 OF BREATH WITH PATCH- lithium Allergy Intermediate SWELLING Verified 12/16/24 18:30 ragweed pollen Allergy Intermediate SEASONAL Verified 12/16/24 18:30 ALLERGIES Past Med/Surg History Problem List (Updated 12/17/24 @ 00:45 by Xi Mckeon) Acute pancreatitis (Acute) Diabetes mellitus type II, controlled Constipation Pancreatitis Albuminuria Hyponatremia Elevated blood pressure reading Shortness of breath Essential tremor Tremor of left hand Low back pain (Acute) Mixed conductive and sensorineural hearing loss (Acute) Pulmonary nodules (Acute) Recurrent herpes labialis (Acute) Vertigo (Acute) Bilateral lower extremity edema Ankle fracture, left (Acute) Insomnia (Acute) Hypercalcemia (Acute) Hematuria, microscopic (Acute) Edema (Acute) Circadian rhythm sleep disorder, delayed sleep phase type (Acute) Chronic sinusitis (Acute) Chronic pain (Acute) Chronic pain syndrome (Acute) Cervical radiculopathy (Acute) Amenorrhea (Acute) Allergic rhinitis (Acute) Abnormal chest CT (Acute) Anxiety disorder, unspecified Leukocytosis (Chronic) Medical History Prurigo nodularis Chronic, continuous use of opioids Hypertensive retinopathy Obesity Recurrent major depressive disorder Thyroid disorder Vitamin D deficiency Irritable bowel syndrome Hyperlipidemia Hypergammaglobulinemia Gastroesophageal reflux disease Essential (primary) hypertension Diabetes mellitus type II, controlled Degeneration of cervical intervertebral disc Complex sleep apnea syndrome Calculus of kidney Benign paroxysmal positional vertigo Asthma Arthralgia of multiple sites Arnold-Chiari malformation, type I Chronic neck pain Surgical History Tubal ligation status History of tubal ligation History of shoulder surgery History of lithotripsy Status post ORIF of fracture of ankle History of cholecystectomy Hx of discectomy Family History Father Asthma Atrial fibrillation Mother Breast cancer Diabetes Hypertension Dyslipidemia Denies family history of Ovarian cancer Prostate cancer Myocardial infarction Colorectal cancer Stroke Social History Smoking Status: Never smoker Second Hand Exposure: No; Do You Dip or Chew Tobacco: No; Hx Alcohol Use: No Hx Substance Use: No Preferred Language: Kazakh Communication Ability: Effective Hearing Ability: Normal 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 Beliefs That Will Affect Care: None marital status: Current Living Situation: Spouse and Family current occupational status: disabled Feels Safe at Home: Yes Safety Concerns: Feels Safe At This Time Childhood Exposure to Second-Hand Smoke: Yes Diet: regular caffeine: Yes Dental Care, Regularly: Yes Physical Activity Frequency: Does not Exercise Seatbelt Use: always Sunscreen Use: Yes Assistive Devices: Walker Review of Systems A total of 10 systems reviewed and were otherwise negative Physical Exam Vital Signs Vital Signs - 24 hr 12/16/24 14:21 12/16/24 18:14 Temperature 36.8 C Temperature Source Temporal Artery Scan Pulse Rate 88 Pulse Rate [Finger] 88 Pulse Strength [Finger] Normal Respiratory Rate 20 19 Respiratory Effort / Characteristics Non-Labored Spontaneous Non-Labored Spontaneous Respiratory Depth Normal Normal Respiratory Pattern Regular Regular Blood Pressure 154/86 H Blood Pressure [Right Arm] 168/84 H Blood Pressure Mean 108 Blood Pressure Mean [Right Arm] 112 Blood Pressure Position [Right Arm] Lying Pulse Oximetry 97 96 Oxygen Delivery Method Room Air Room Air Sepsis Recent Fever Within 48 Hours No Sepsis New/Unexplained Change in Mental Status No Sepsis Action Taken by Nursing No Action Required CONSTITUTIONAL: Pleasant, well-appearing 59-year-old female who is awake and alert and in no acute distress laying on the gurney. Family is at the bedside. EYES: Pupils equal, round, reactive to light and accommodation. EOMs intact without nystagmus. Sclera are anicteric. ENT: Tympanic membranes intact, with normal landmarks. External canals are clear. Oral and nasopharynx are clear. Mucous membranes are moist, no lesions, tongue and gums appear normal. CARDIOVASCULAR: Regular rate and rhythm. Peripheral pulses easily palpable. RESPIRATORY: Breath sounds equal and clear to auscultation. ABDOMEN: Bowel sounds are present x 4 quadrants, mildly hypoactive. The abdomen is soft, mildly distended, and tender to palpation across the right and left lower quadrants, no guarding or rebound. There is no pain in the epigastric region. No CVA tenderness. INTEGUMENTARY: No lesions or rash, normal skin turgor. LYMPH: No lymphadenopathy. Course Course The patient was seen and assessed. External medical records were reviewed. She presents to the emergency department for evaluation of lower abdominal pain over the last 2-3 days. Critical pathways were implemented by nursing staff prior to my assessment the patient including CBC with differential, CMP, lipase and urinalysis. After I assessed the patient, CT scan of the abdomen and pelvis with IV contrast was ordered. She later requested something for pain and was given morphine 4 mg and Zofran 4 mg IV. Diagnostics, as interpreted by me: Laboratory studies: Elevated white count at 14,000 with left shift noted. Sodium 131, potassium 4.3, chloride 91, carbon dioxide 33, BUN 5 and creatinine 0.54. No transaminitis. Lipase is normal. Urine microscopy is not overtly concerning for infection. Imaging studies: CT scan of the abdomen pelvis with IV contrast is concerning for acute pancreatitis. No pseudocyst, gas or abnormal contrast-enhancement. No ductal dilatation. Patient felt improved with the IV morphine and Zofran. All laboratory and diagnostic imaging studies were reviewed with her and family, and inpatient care was advised. Patient presentation and ED course/disposition were reviewed with attending physician, Dr. Zhu. Consultation was placed with the [facility] for further care and management. Differential diagnosis: UTI, pyelonephritis, kidney stone, bowel obstruction, perforation, abscess, mass or malignancy, diverticulitis, pancreatitis, constipation, IBS exacerbation, among other chronic medical problems. Administered Medications Atorvastatin Calcium (Atorvastatin 40 Mg Tab) 40 mg PO QPM THALIA Stop: 01/15/25 20:59 Last Admin: 12/16/24 21:32 Dose: 40 mg Documented By: SINDI Docusate Sodium (Docusate Sodium 100 Mg Cap) 100 mg PO BID THALIA Stop: 01/15/25 20:59 Last Admin: 12/16/24 21:32 Dose: 100 mg Documented By: SINDI Gabapentin (Gabapentin 300 Mg Cap) 300 mg PO QID THALIA Stop: 01/15/25 20:59 Last Admin: 12/16/24 21:32 Dose: 300 mg Documented By: SINDI Gabapentin (Gabapentin 600 Mg Tab) 600 mg PO QID THALIA Stop: 01/15/25 20:59 Last Admin: 12/16/24 21:32 Dose: 600 mg Documented By: SINDI Lactated Ringer's (Lr) 1,000 mls @ 80 mls/hr IV .[id number] [facility] Stop: 12/17/24 08:44 Last Admin: 12/16/24 20:47 Dose: 80 mls/hr Documented By: SINDI Insulin Aspart (Insulin Aspart Per Unit Charge) 0 units SC ACHS [facility] Stop: 01/15/25 20:59 Last Admin: 12/16/24 21:15 Dose: Not Given Documented By: SINDI Co-signed By: GILES Primidone (Primidone 250 Mg Tab) 250 mg PO TID [facility] Stop: 01/15/25 20:59 Last Admin: 12/16/24 21:32 Dose: 250 mg Documented By: SINDI Discontinued Medications Sodium Chloride (Nss) 1,000 mls @ 999 mls/hr IV .Q1H1M THALIA Stop: 12/16/24 19:40 Last Infusion: 12/16/24 19:59 Dose: Infused Documented By: Admin: 12/16/24 18:47 Dose: 999 mls/hr Documented By: SINDI Ioversol (Optiray 320 100ml) 90 ml IV ONCE ONE Stop: 12/16/24 17:20 Last Admin: 12/16/24 17:20 Dose: 90 ml Documented By: LILIA Miscellaneous (Patient's Height &/Or Weight Needed) 1 each N/A NOW STA Stop: 12/16/24 20:43 Last Admin: 12/16/24 20:49 Dose: Not Given Documented By: SINDI Morphine Sulfate (Morphine Sulfate 4 Mg/Ml 1 Ml Carp\Vial) 4 mg IV NOW STA Stop: 12/16/24 18:29 Last Admin: 12/16/24 18:33 Dose: 4 mg Documented By: SINDI Ondansetron HCl (Ondansetron Inj 2 Mg/Ml 2 Ml Vial) 4 mg IV NOW STA Stop: 12/16/24 18:29 Last Admin: 12/16/24 18:33 Dose: 4 mg Documented By: SINDI Polyethylene Glycol (Polyethylene (Miralax) 17 Gm Pack) 34 gm PO NOW STA Stop: 12/16/24 20:37 Last Admin: 12/16/24 20:47 Dose: 34 gm Documented By: SINDI Medical Decision Making Differential Diagnosis See ED course. Medical Records Attestation: I reviewed the patient's medical records. Home Medications Current Medication List: was personally reviewed by me Laboratory Data Attestation: I reviewed the patient's lab results. 12/16/24 14:45 12/16/24 14:45 Lab Results 12/16/24 Range/Units 14:45 WBC 14.01 H (4.8-10.8) K/ul RBC 4.47 (4.20-5.40) M/uL Hgb 12.4 (12.0-16.0) g/dl Hct 37.8 (37.0-47.0) % MCV 84.6 (80.0-100.0) fL MCH 27.7 (25.0-34.0) pg MCHC 32.8 (32.0-36.0) g/dL RDW Std Deviation 44.9 (36.4-46.3) fL RDW Coeff of Evelyn 14.6 H (11.5-14.5) % Plt Count 336 (130-400) K/uL MPV 9.0 L (9.4-12.4) fL Immature Gran % (Auto) 0.4 % Neut % (Auto) 73.4 % Lymph % (Auto) 16.2 % [place] % (Auto) 6.9 % Eos % (Auto) 2.8 % Baso % (Auto) 0.3 % Neut # (Auto) 10.29 H (1.40-6.50) K/uL Lymph # (Auto) 2.27 (1.20-3.40) K/uL [place] # (Auto) 0.96 H (0.11-0.59) K/uL Eos # (Auto) 0.39 (0.00-0.50) K/uL Baso # (Auto) 0.04 (0.00-0.20) K/uL Immature Gran # (Auto) 0.06 (0.01-0.20) K/uL Sodium 131 L (136-145) mmol/L Potassium 4.3 (3.5-5.1) mmol/L Chloride 91 L (98-107) mmol/L Carbon Dioxide 33 H (21-32) mmol/L Anion Gap 7 (3-11) BUN 5 L (6-23) mg/dl Creatinine 0.54 L (0.6-1.2) mg/dl Est Cr Clr Drug Dosing Not Reportable eGFR 107.32 BUN/Creatinine Ratio 9.3 L (10-20) Glucose 119 H (70-99(Fasting)) mg/dl Calcium 9.2 (8.6-10.3) mg/dl Total Bilirubin 0.4 (0.2-1.0) mg/dl AST 26 (13-39) U/L ALT 30 (7-52) U/L Alkaline Phosphatase 66 (34-104) U/L Total Protein 7.9 (6.0-8.3) gm/dl Albumin 4.1 (3.4-5.0) gm/dl Globulin 3.8 (2.5-4.0) gm/dl Albumin/Globulin Ratio 1.1 (0.9-2) Triglycerides 144 (0-150) mg/dl Lipase 79 (11-82) U/L Imaging Data Attestation: I personally reviewed and interpreted this imaging study as follows: Radiologist's Impression: Abdomen/Pelvis CT 12/16/24 16:53 EXAMINATION: Abdomen and pelvis CT with CLINICAL HISTORY: Bilateral lower abdominal pain x 3 days PRIORS: Plain film 07/06/2023 TECHNIQUE: Contiguous axial images were obtained through the abdomen and pelvis with the use of intravenous contrast. Sagittal and coronal reformations are supplied. FINDINGS: No acute abnormality in the lung bases. Hepatomegaly and fatty infiltration of the liver noted. The gallbladder is surgically absent. Portal vein, spleen, stomach, adrenals, aorta and IVC are morphologically unremarkable. Moderate peripancreatic inflammatory change noted at the level of the pancreatic head and body. Small scattered lymph nodes noted in the vicinity without pathologic enlargement. The splenic vein and gastroduodenal artery have a normal appearance. No pseudocyst, pancreatic gas or abnormal contrast enhancement of the pancreas. Fatty infiltration of the pancreatic head noted with homogeneous contrast enhancement. No ductal dilatation or calcifications. Secondary mild stomach wall thickening noted involving the pyloric antrum. The kidneys enhance symmetrically. No obstruction. Large amount of formed stool present in the colon. No dilated loops of bowel or bowel obstruction. Appendix normal in the right lower quadrant. Urinary bladder distends normally. Uterus present. No pelvic adenopathy or free fluid. In bone windows, pars defects present at L5-S1 with no significant anterolisthesis. IMPRESSION: 1. Moderate acute pancreatitis involving the pancreatic head and body with no CT features of an acute complication at this time. 2. Fatty infiltration of the liver and hepatomegaly. Electronically signed by Peri Galvan 12-16-2024 5:53 PM MDM Narrative See ED course. Impression & Plan Acute pancreatitis Discharge Plan Visit Data Chief Complaint: Abdominal Pain Stated Complaint: ABD PAIN,DARK STOOL ED Provider: Sherrie Zhu ED Midlevel Provider: Xi Mckeon Discharge Problem: Acute pancreatitis Patient Disposition: Admitted As Inpatient Discharge Instructions Interventions: ED Discharge Assessment Last Done: 12/16/24 20:41
[2024-12-16] MEDS: OPTIRAY 320 100ml IV ONE (17:20)
--- NOTE | 2024-12-16 17:54 | CT Scan Report ---
EXAMINATION: Abdomen and pelvis CT with CLINICAL HISTORY: Bilateral lower abdominal pain x 3 days PRIORS: Plain film 07/06/2023 TECHNIQUE: Contiguous axial images were obtained through the abdomen and pelvis with the use of intravenous contrast. Sagittal and coronal reformations are supplied. FINDINGS: No acute abnormality in the lung bases. Hepatomegaly and fatty infiltration of the liver noted. The gallbladder is surgically absent. Portal vein, spleen, stomach, adrenals, aorta and IVC are morphologically unremarkable. Moderate peripancreatic inflammatory change noted at the level of the pancreatic head and body. Small scattered lymph nodes noted in the vicinity without pathologic enlargement. The splenic vein and gastroduodenal artery have a normal appearance. No pseudocyst, pancreatic gas or abnormal contrast enhancement of the pancreas. Fatty infiltration of the pancreatic head noted with homogeneous contrast enhancement. No ductal dilatation or calcifications. Secondary mild stomach wall thickening noted involving the pyloric antrum. The kidneys enhance symmetrically. No obstruction. Large amount of formed stool present in the colon. No dilated loops of bowel or bowel obstruction. Appendix normal in the right lower quadrant. Urinary bladder distends normally. Uterus present. No pelvic adenopathy or free fluid. In bone windows, pars defects present at L5-S1 with no significant anterolisthesis. IMPRESSION: 1. Moderate acute pancreatitis involving the pancreatic head and body with no CT features of an acute complication at this time. 2. Fatty infiltration of the liver and hepatomegaly. Electronically signed by Peri Galvan 12-16-2024 5:53 PM
[2024-12-16] MEDS: MoRPHine SULFATE 4 MG/ML 1 ML CARP\\VIAL IV STA (18:33)
[2024-12-16] MEDS: ONDANSETRON INJ 2 MG/ML 2 ML VIAL IV STA (18:33)
[2024-12-16] MEDS: SODIUM CHLORIDE 0.9% 1,000 ML IV SCH (18:47)
--- NOTE | 2024-12-16 19:28 | History & Physical Report ---
Date of Service December 16, 2024 Assessment & Plan (1) Pancreatitis: (2) Constipation: (3) Diabetes mellitus type II, controlled: Plan Patient is a 59-year-old female with past medical history of type II DM, hyperlipidemia, chronic lower extremity edema, STEWART on BiPAP, asthma, depression, essential tremor, GERD. She presented to the ED due to bilateral lower abdominal pain and constipation x [address] revealed moderate acute pancreatitis, however patient's lipase level 79, and large amount of stool in colon. Patient is being admitted for pancreatitis however suspect abd pain caused by constipation. #pancreatitis No history of pancreatitis possibly pancreatitis/ questionable - does not specifically meet clinical picture for pancreatitis with lipase 79 and lower abdominal pain however CT shows moderate acute pancreatitis, abd pain explained by constipation possibly idiopathic - no distinctive cause determined at time of admission, has been on dose of Trulicity for several years, triglyceride levels stable (219 09/2024), rare alcohol use, hx of cholecystectomy Leukocytosis, WBC 14 lipase negative, 79 triglyceride level WNL, 144 CTAP showed moderate acute pancreatitis received 1L NSS bolus in ED, continue with gentle fluid resuscitation with LR at 80 ml/hr x1L clear diet, advance as tolerated Zofran prn, IV Tylenol prn, IV Toradol prn for breakthrough pain hold Trulicity trend LFTS and lipase #constipation suspect abd pain 2/2 constipation typically has 3 bowel movements per day, has only had 1 per day since Sunday Does endorse melena however has been taking Pepto-Bismol with Patient reports she takes a stool softener twice daily at baseline, ordered AP CT showed large amount of stool in the colon, no obstruction MiraLAX TID ordered; 2 doses ordered at time of admission defer further opioids as will further slow bowels #T2DM Controlled on Trulicity and metformin at home; hold Most recent A1C 6.5% loose SSI with target BSG range 110-180mg/dL, CF 40, defer carb ratio BSG ACHS if eating, q6h if npo neuropathy continue gabapentin UA showed pH 8.5, 2+ leukocyte esterase, 11-20 WBC, however no bacteria - patient denies any urinary symptoms, follow urine cultures, defer ABX treatment at this time Chronic stable diagnoses: STEWART - Bipap HS ordered Chronic lower extremity edema andcontinue Lasix 20 Mg daily essential tremorcontinue primidone Depression/anxietycontinue trazodone, venlafaxine, fluvoxamine, aripiprazole HLDcontinue atorvastatin GERDcontinue famotidine and PPI asthmacontinue home inhalers VTE ppx: SCDs, low risk Diet: clears, advance as tolerated T2DM diet Dispo: med surg Admission and Anticipated Discharge Date Admission Date: 12/16/24 History of Present Illness Chief Complaint: abd pain Primary Care Provider: Marcelino Webber MD Patient is a 59-year-old female with past medical history of type II DM, hyperlipidemia, chronic lower extremity edema, STEWART on BiPAP, asthma, depression, essential tremor, GERD. She presented to the ED due to bilateral lower abdominal pain, bloating, and nausea x [address] revealed moderate acute pancreatitis, however patient's lipase level 79. Patient is being admitted for pancreatitis. Patient seen at bedside. He stated that since Sunday she has had constant lower abdominal pain that was 6/10 upon arrival to ED, currently 2/10 after morphine 4 Mg IV in ED. She also endorses constipation as she typically has 3 bowel movements per day and has only had 1/day since Sunday. She does endorse melena however has been taking Pepto-Bismol and Lucretia-Grubbs all weekend. She takes 2 stool softeners daily at baseline. She denies any history of pancrea titis. she denies a history of chronic alcohol use; she only has approximately once per month with her friends, no history of daily use. She has no history of recent gallstones, had her gallbladder removed previously. She has been on the same dose of Trulicity for several years, she has her injection on Saturdays. Patient denies fever, chills, nausea, vomiting, dysuria, hematuria, edema. She does not use nicotine products. She uses BiPAP at bedtime. She took her morning and afternoon medications, is due for her evening medications. She wishes to be full code. Patient's updated at bedside. Allergies Allergy/AdvReac Type Severity Reaction Status Date / Time fentanyl Allergy Severe SHORTNESS Verified 12/16/24 18:30 OF BREATH WITH PATCH- lithium Allergy Intermediate SWELLING Verified 12/16/24 18:30 ragweed pollen Allergy Intermediate SEASONAL Verified 12/16/24 18:30 ALLERGIES Home Medications Medication Instructions Recorded Confirmed Type venlafaxine 75 mg tablet 225 mg PO DAILY 04/29/20 12/16/24 History mecobalamin (vitamin B12) 1,000 2,000 mcg (2 x 1,000 mcg) PO DAILY 12/20/22 12/16/24 Rx mcg chewable tablet (B12 Active) #30 tabs cinnamon bark 500 mg capsule 1,000 mg PO DAILY 02/20/23 12/16/24 History (Cinnamon) aripiprazole 15 mg tablet 15 mg PO DAILY 09/11/23 12/16/24 History fexofenadine 180 mg tablet 180 mg PO DAILY 09/11/23 12/16/24 History (Brook Allergy) omega-3 fatty acids 500 mg capsule 1,000 mg PO DAILY 09/11/23 12/16/24 History back brace #1 ea 10/12/23 11/16/24 Rx trazodone 50 mg tablet 50 mg PO HS PRN Sleep 12/21/23 12/16/24 History fluvoxamine 150 mg 150 mg PO DAILY 10/10/24 12/16/24 History capsule,extended release 24 hr atorvastatin 40 mg tablet 40 mg PO QPM #90 tabs 10/15/24 12/16/24 Rx meclizine 25 mg tablet 25 mg PO DAILY PRN dizziness #90 10/15/24 12/16/24 Rx tabs primidone 250 mg tablet 250 mg PO TID 90 days #270 tabs 10/15/24 12/16/24 Rx albuterol sulfate 90 mcg/actuation 1 puff inhalation Q4H PRN 10/16/24 12/16/24 Rx aerosol inhaler shortness of breath or wheezing #3 Inhalers famotidine 40 mg tablet 40 mg PO DAILY 90 days #90 tabs 10/16/24 12/16/24 Rx fluticasone 500 mcg-salmeterol 50 1 inh inhalation BID #3 Inhalers 10/16/24 12/16/24 Rx mcg/dose blistr powdr for inhalation (Advair Diskus) fluticasone propionate 50 1 spray intranasal Q12H PRN nasal 10/16/24 12/16/24 Rx mcg/actuation nasal congestion #3 BTLS spray,suspension blood sugar diagnostic (OneTouch #100 ea 10/20/24 11/16/24 Rx Verio test strips) furosemide 20 mg tablet 20 mg PO DAILY #90 tabs 10/20/24 12/16/24 Rx gabapentin 300 mg capsule 300 mg PO QID #360 caps 10/20/24 12/16/24 Rx lancets 33 gauge #100 ea 10/20/24 11/16/24 Rx metformin 500 mg tablet 1,000 mg (2 x 500 mg) PO BID #360 10/20/24 12/16/24 Rx tabs celecoxib 200 mg capsule 200 mg PO DAILY 12/16/24 12/16/24 History cholecalciferol (vitamin D3) 25 3,000 units PO WK 12/16/24 12/16/24 History mcg (1,000 unit) capsule clotrimazole-betamethasone 1 1 applic topical BID PRN Skin 12/16/24 12/16/24 History %-0.05 % topical cream Irritation dulaglutide 3 mg/0.5 mL 3 mg subcut WK 12/16/24 12/16/24 History subcutaneous pen injector esomeprazole magnesium 40 mg 40 mg PO DAILY 12/16/24 12/16/24 History capsule,delayed release gabapentin 600 mg tablet 600 mg PO QID 12/16/24 12/16/24 History miconazole nitrate 2 % topical 1 applic topical BID PRN Skin 12/16/24 12/16/24 History cream Irritation nemolizumab-ilto 30 mg 30 mg subcut MONTHLY 12/16/24 12/16/24 History subcutaneous pen injector (Nemluvio) nystatin 100,000 unit/gram topical 1 applic topical DAILY PRN Skin 12/16/24 12/16/24 History powder Irritation nystatin-triamcinolone 100,000 1 applic topical BID PRN Skin 12/16/24 12/16/24 History unit/g-0.1 % topical cream Irritation triamcinolone acetonide 0.1 % 1 applic topical DAILY PRN Skin 12/16/24 12/16/24 History lotion Irritation Past Med/Surg History Problem List (Updated 12/17/24 @ 00:45 by Xi Mckeon) Acute pancreatitis (Acute) Diabetes mellitus type II, controlled Constipation Pancreatitis Albuminuria Hyponatremia Elevated blood pressure reading Shortness of breath Essential tremor Tremor of left hand Low back pain (Acute) Mixed conductive and sensorineural hearing loss (Acute) Pulmonary nodules (Acute) Recurrent herpes labialis (Acute) Vertigo (Acute) Bilateral lower extremity edema Ankle fracture, left (Acute) Insomnia (Acute) Hypercalcemia (Acute) Hematuria, microscopic (Acute) Edema (Acute) Circadian rhythm sleep disorder, delayed sleep phase type (Acute) Chronic sinusitis (Acute) Chronic pain (Acute) Chronic pain syndrome (Acute) Cervical radiculopathy (Acute) Amenorrhea (Acute) Allergic rhinitis (Acute) Abnormal chest CT (Acute) Anxiety disorder, unspecified Leukocytosis (Chronic) Medical History Prurigo nodularis Chronic, continuous use of opioids Hypertensive retinopathy Obesity Recurrent major depressive disorder Thyroid disorder Vitamin D deficiency Irritable bowel syndrome Hyperlipidemia Hypergammaglobulinemia Gastroesophageal reflux disease Essential (primary) hypertension Diabetes mellitus type II, controlled Degeneration of cervical intervertebral disc Complex sleep apnea syndrome Calculus of kidney Benign paroxysmal positional vertigo Asthma Arthralgia of multiple sites Arnold-Chiari malformation, type I Chronic neck pain Surgical History Tubal ligation status History of tubal ligation History of shoulder surgery History of lithotripsy Status post ORIF of fracture of ankle History of cholecystectomy Hx of discectomy Family History Father Asthma Atrial fibrillation Mother Breast cancer Diabetes Hypertension Dyslipidemia Denies family history of Ovarian cancer Prostate cancer Myocardial infarction Colorectal cancer Stroke Social History Smoking Status: Never smoker Second Hand Exposure: No; Do You Dip or Chew Tobacco: No; Hx Alcohol Use: No Hx Substance Use: No Preferred Language: Pashto Communication Ability: Effective Hearing Ability: Normal 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 Beliefs That Will Affect Care: None marital status: Current Living Situation: Spouse and Family current occupational status: disabled Feels Safe at Home: Yes Safety Concerns: Feels Safe At This Time Childhood Exposure to Second-Hand Smoke: Yes Diet: regular caffeine: Yes Dental Care, Regularly: Yes Physical Activity Frequency: Does not Exercise Seatbelt Use: always Sunscreen Use: Yes Assistive Devices: Walker Review of Systems Review of Systems: See HPI Physical Exam Physical Exam: The patient is awake, alert and oriented 3, well developed and well nourished, normocephalic and atraumatic, in no acute distress. Non-toxic appearing. HEENT- EOMI, mucous membranes moist. Hearing grossly intact. Heart-normal S1 and S2. No murmurs, rubs or gallops. Lungs-clear bilaterally, no respiratory distress, no accessory muscle use. Abdomen-normal bowel sounds and soft. No ascites noted. Non-tender. Extremities- no clubbing, cyanosis, or edema. Rheumatologic-normal range of motion. Psychiatric-normal affect. Results & Data Results & Data Vital Signs (Past 12 Hours) Vital Signs Temp Pulse Pulse Resp BP BP Pulse Ox 12/16/24 18:14 88 19 168/84 H 96 12/16/24 14:21 36.8 C 88 20 154/86 H 97 O2 Del Method 12/16/24 18:14 Room Air 12/16/24 14:21 Room Air Laboratory Results reviewed CBC, CMP, lipase, UA Diagnostic Findings reviewed AP CT Medications Administered ED1L NSS bolus, morphine 4 Mg IV, Zofran 4 Mg IV ECG Additional Comments: Ordered with qt prolonging agents Code Status & VTE Plan Code Status full VTE Prophylaxis Plan VTE Prophylaxis will be ordered: Yes Supervising Physician Co-Signing Physician Notes I personally saw and examined the patient. I independently reviewed the labs, EKG, imaging, problem list, medication list, past medical history and family history. I verified all lazaro points and agree with Harmony Paredes PA-C with the following exceptions and/or additions: 59 year old female presents to the ER O/E HS RRR A/P PG Care Time/CCT Total # of Minutes Spent Total Time Spent with Patient: Total time spent is greater than 50% in coordination of care (as documented) at patient's floor/unit and/or counseling patient: Coding Level of Care Code 29264 INT INP/OBS CARE 375MIN Diagnoses Pancreatitis K85.90 Constipation K59.00 Diabetes mellitus type II, controlled E11.9
[2024-12-16 19:57] LABS: Triglycerides 144 mg/dl (0-150)
[2024-12-16] MEDS ORDERED: GLUCOSE 10 TAB/TUBE PO PRN (20:41)
[2024-12-16] MEDS ORDERED: DEXTROSE 50% 50 ML SYRINGE IV PRN (20:41)
[2024-12-16] MEDS ORDERED: traZODone HCL 50 MG TAB PO PRN (20:41)
[2024-12-16] MEDS ORDERED: ALBUTEROL HFA 8 GM INHALER INH PRN (20:41)
[2024-12-16] MEDS ORDERED: KETOROLAC TROMETHAMINE 15 MG/ML VIAL IV PRN (20:41)
[2024-12-16] MEDS ORDERED: CLOTRIMAZOLE/BETAMETHASONE CR 15 GM TUBE EXT PRN (20:41)
[2024-12-16] MEDS ORDERED: GLUCOSE 40% GEL 15 GM TUBE PO PRN (20:41)
[2024-12-16] MEDS ORDERED: CARBOHYDRATES FOR HYPOGLYCEMIA PO PRN (20:41)
[2024-12-16] MEDS ORDERED: GLUCAGON FOR INJ 1 MG VIAL SQ PRN (20:41)
[2024-12-16] MEDS ORDERED: MELATONIN 3 MG TAB PO PRN (20:41)
[2024-12-16] MEDS ORDERED: ONDANSETRON INJ 2 MG/ML 2 ML VIAL IV PRN (20:41)
[2024-12-16] MEDS ORDERED: MECLIZINE HCL 25 MG TAB PO PRN (20:41)
[2024-12-16] MEDS: POLYETHYLENE (MIRALAX) 17 GM PACK PO STA (20:47)
[2024-12-16] MEDS: LACTATED RINGER'S 1,000 ML IV SCH (20:47)
[2024-12-16] MEDS: Patient's HEIGHT &/or WEIGHT Needed STA (20:49)
[2024-12-16] MEDS: INSULIN ASPART PER UNIT CHARGE SC SCH (21:15)
[2024-12-16] MEDS: GABAPENTIN 600 MG TAB PO SCH (21:32)
[2024-12-16] MEDS: GABAPENTIN 300 MG CAP PO SCH (21:32)
[2024-12-16] MEDS: PRIMIDONE 250 MG TAB PO SCH (21:32)
[2024-12-16] MEDS: ATORVASTATIN 40 MG TAB PO SCH (21:32)
[2024-12-16] MEDS: DOCUSATE SODIUM 100 MG CAP PO SCH (21:32)
[2024-12-17 04:51] LABS: Basophils # (auto) 0.03 K/uL (0.00-0.20); Basophils % (auto) 0.3 %; Eosinophils # (auto) 0.44 K/uL (0.00-0.50); Eosinophils % (auto) 3.9 %; Hematocrit (blood only) 33.1 % (37.0-47.0); Hemoglobin 10.9 g/dl (12.0-16.0); Immature Granulocytes # (auto) 0.05 K/uL (0.01-0.20); Immature Granulocytes % (auto) 0.4 %; Lymphocytes # (auto) 2.16 K/uL (1.20-3.40); Lymphocytes % (auto) 19.1 %; Mean Corpuscular Hemoglobin 28.4 pg (25.0-34.0); Mean Corpuscular Hgb Conc 32.9 g/dL (32.0-36.0); Mean Corpuscular Volume 86.2 fL (80.0-100.0); Mean Platelet Volume 9.1 fL (9.4-12.4); Monocytes # (auto) 1.05 K/uL (0.11-0.59); Monocytes % (auto) 9.3 %; Neutrophils # (auto) 7.58 K/uL (1.40-6.50); Platelet Count 293 K/uL (130-400); RDW Coefficient of Variation 14.8 % (11.5-14.5); RDW Standard Deviation 46.8 fL (36.4-46.3); Red Blood Count 3.84 M/uL (4.20-5.40); White Blood Count 11.31 K/ul (4.8-10.8)
[2024-12-17 05:09] LABS: Albumin Globulin Ratio 1.1 (0.9-2); Albumin Level 3.4 gm/dl (3.4-5.0); BUN Creatinine Ratio 7.8 (10-20); Bilirubin,Total 0.4 mg/dl (0.2-1.0); Calcium 8.6 mg/dl (8.6-10.3); Creatinine Clr Calc Pharmacy 152.2 ml/min; Globulin 3.1 gm/dl (2.5-4.0); Potassium 4.7 mmol/L (3.5-5.1); Total Protein 6.5 gm/dl (6.0-8.3)
[2024-12-17] MEDS ORDERED: PHARMACY GLYCEMIC MGMT CONSULT PRN (09:12)
[2024-12-17] MEDS: POLYETHYLENE (MIRALAX) 17 GM PACK PO SCH (09:38)
[2024-12-17] MEDS: ARIPiprazole 15 MG TAB PO SCH (09:39)
[2024-12-17] MEDS: PANTOprazole 40 MG TAB PO SCH (09:40)
[2024-12-17] MEDS: FAMOTIDINE 40 MG TABLET PO SCH (09:40)
[2024-12-17] MEDS: VENLAFAXINE HCL XR 75 MG CAPXR PO SCH (09:41)
[2024-12-17] MEDS: FUROSEMIDE 20 MG TAB PO SCH (09:43)
[2024-12-17] MEDS: SENNA 8.6 MG TAB PO SCH (10:56)
[2024-12-17] MEDS: FLUTICASONE/VILANTEROL 200/25MCG 14 PUFFS/INHALER INH SCH (10:57)
[2024-12-17] MEDS: ACETAMINOPHEN 1,000 MG/100 ML VIAL IV PRN (10:59)
--- NOTE | 2024-12-17 11:22 | Pharmacy Report ---
Pharmacy Glycemic Short Note 2 - Date of Service December 17, 2024 - Glycemic Short BSG Results (Last 24 hours): 12/16/24 12/16/24 12/17/24 14:45 21:12 04:32 Glucose 119 H 120 H POC Glucose 102 H 12/17/24 08:48 Glucose POC Glucose 215 H OUTPATIENT ANTIDIABETIC REGIMEN: * metformin 1000mg po BID * Trulicity 3mg SQ weekly HbA1c: 6.5% on 10/06/24 ASSESSMENT: * 59 year old female admitted 12/16 for b/l lower abdominal pain, constipation, and acute pancreatitis. Pharmacy was consulted for glycemic management while she is admitted. * BSG last evening was 102mg/dL and fasting BSG this morning was 215mg/dL. A weight based bolus insulin regimen with a stress of ~1 was started this morning. Patient received only 4 units of bolus insulin this morning and lunch BSG dropped to 110mg/dL. Due to this significant drop, the CR will be removed and the CF will be tightened some. * No basal insulin is needed at this time PLAN FOR INPATIENT GLYCEMIC CONTROL: * Hold outpatient diabetes medications * Basal insulin * None * Bolus insulin * NovoLog per scale ACHS or Q6hrs while NPO * Goal Range: Low 120 mg/dL - High 160 mg/dL * Correction Factor: 40 mg/dL/unit * Nutritional / Prandial insulin per carb ratio--NONE
--- NOTE | 2024-12-17 12:32 | Hospitalist Progress Note ---
Date of Service December 17, 2024 Assessment & Plan (1) Pancreatitis: (2) Constipation: (3) Diabetes mellitus type II, controlled: (4) Fatty liver: (5) Morbid obesity with BMI of 40.0-44.9, adult: Plan Patient is a 59-year-old female with past medical history of type II DM, hyperlipidemia, chronic lower extremity edema, STEWART on BiPAP, asthma, depression, essential tremor, GERD. She presented to the ED due to bilateral lower abdominal pain and constipation x [address] revealed moderate acute pancreatitis, however patient's lipase level 79, and large amount of stool in colon. Patient is being admitted for pancreatitis however suspect abd pain caused by constipation. #Abdominal pain #Constipation #Chronic GERD Patient's abdominal pain and discomfort is lower abdomen CT abdomen pelvis reviewed with patient and shows moderate acute pancreatitis, fatty infiltration of liver with hepatomegaly and large amount of formed stool in the colon with no bowel obstruction. CT also shows mild stomach wall thickening involving the pyloric antrum: She will benefit from referral to GI as outpatient through PCP for outpatient EGD Continue PPI and Pepcid Patient's lipase levels are normal Patient has no epigastric pain, no nausea and no vomiting. She is hemodynamically stable. She is afebrile Triglycerides are within normal limits at 144 She has mild leukocytosis, urine analysis negative I doubt this is pancreatitis and suspect her abdominal symptoms are related to constipation Continue MiraLAX 3 times daily, add senna twice daily Patient agreeable to mag citrate x 1 dose, Dulcolax suppository Avoid opiates: Discussed with patient Hold Lasix, gentle IV fluid hydration #Type 2 diabetes mellitus Controlled on Trulicity and metformin at home; hold for now Most recent A1C 6.5% Pharmacy consult for glycemic management #STEWART CPAP at bedtime #Morbid obesity, BMI of 41.3 #Fatty liver Lifestyle counseling regarding diet, exercise and weight loss provided Outpatient follow-up with PCP #Depression Continue Abilify and trazodone CODE STATUS: Full code DVT prophylaxis: Patient is ambulatory Discharge planning likely home tomorrow if medically stable Care plan discussed with patient, nursing staff and family updated bedside with patient's permission Admission and Anticipated Discharge Date Admission Date: December 16, 2024 Subjective Patient seen and examined H&P reviewed Patient's and mother at bedside Patient ambulating without any issues She had 1 bowel movement today Patient states she normally has 2-3 bowel movements a day but for the last 4 to 5 days she is had 1 bowel movement, small in size She feels bloated and her discomfort is mainly lower abdominal. She denies any epigastric or mid abdominal pain. She denies any nausea, vomiting, fever, chills, dizziness, lightheadedness, chest pain or shortness of breath. She does take Lasix every day for leg swelling, currently states her legs have not been swollen for several weeks She denies tobacco use. She drinks alcohol occasionally only. Physical Exam Physical Exam: General: No acute distress Psych: Awake and alert, oriented x 3 HEENT: Anicteric sclera, moist oral mucosa CVS: Regular rate and rhythm Lungs: Bilateral air entry, no wheezing noted Abdomen: Soft, nontender, obese abdomen, no rebound, no guarding Ext: No lower extremity edema, no calf tenderness Neuro: No focal motor deficits noted Results & Data Results & Data Vital Signs (Past 12 Hours) Vital Signs Pulse Pulse Resp BP Pulse Ox O2 Del Method O2 Flow Rate 12/17/24 11:19 82 18 124/70 97 Room Air 12/17/24 09:47 90 16 127/66 95 Room Air 12/17/24 06:00 72 20 134/79 100 CPAP 12/17/24 03:00 82 20 116/63 98 CPAP 12/17/24 02:53 82 19 97 1 Laboratory Results Laboratory Results - last 24 hr 12/16/24 12/16/24 12/16/24 14:45 21:12 Unknown WBC 14.01 H RBC 4.47 Hgb 12.4 Hct 37.8 MCV 84.6 MCH 27.7 MCHC 32.8 RDW Std Deviation 44.9 RDW Coeff of Evelyn 14.6 H Plt Count 336 MPV 9.0 L Immature Gran % (Auto) 0.4 Neut % (Auto) 73.4 Lymph % (Auto) 16.2 Crenshaw % (Auto) 6.9 Eos % (Auto) 2.8 Baso % (Auto) 0.3 Neut # (Auto) 10.29 H Lymph # (Auto) 2.27 Crenshaw # (Auto) 0.96 H Eos # (Auto) 0.39 Baso # (Auto) 0.04 Immature Gran # (Auto) 0.06 Sodium 131 L Potassium 4.3 Chloride 91 L Carbon Dioxide 33 H Anion Gap 7 BUN 5 L Creatinine 0.54 L Est Cr Clr Drug Dosing Not Reportable eGFR 107.32 BUN/Creatinine Ratio 9.3 L Glucose 119 H POC Glucose 102 H Calcium 9.2 Total Bilirubin 0.4 AST 26 ALT 30 Alkaline Phosphatase 66 Total Protein 7.9 Albumin 4.1 Globulin 3.8 Albumin/Globulin Ratio 1.1 Triglycerides 144 Lipase 79 Urine Color Yellow Urine Appearance Clear Urine pH 8.5 H Ur Specific [place] 1.005 Urine Protein Negative Urine Glucose (UA) Negative Urine Ketones Negative Urine Blood Negative Urine Nitrite Negative Urine Bilirubin Negative Urine Urobilinogen Negative Ur Leukocyte Esterase 2+ H Urine WBC (Auto) 11-20 H Urine RBC (Auto) 0-2 U Hyaline Cast (Auto) 0-2 U Epithel Cells (Auto) 0-2 Urine Bacteria (Auto) None Seen 12/17/24 12/17/24 12/17/24 04:32 08:48 11:23 WBC 11.31 H RBC 3.84 L Hgb 10.9 L Hct 33.1 L MCV 86.2 MCH 28.4 MCHC 32.9 RDW Std Deviation 46.8 H RDW Coeff of Evelyn 14.8 H Plt Count 293 MPV 9.1 L Immature Gran % (Auto) 0.4 Neut % (Auto) 67.0 Lymph % (Auto) 19.1 [place] % (Auto) 9.3 Eos % (Auto) 3.9 Baso % (Auto) 0.3 Neut # (Auto) 7.58 H Lymph # (Auto) 2.16 [place]shaw # (Auto) 1.05 H Eos # (Auto) 0.44 Baso # (Auto) 0.03 Immature Gran # (Auto) 0.05 Sodium 133 L Potassium 4.7 Chloride 96 L Carbon Dioxide 32 Anion Gap 5 BUN 4 L Creatinine 0.51 L Est Cr Clr Drug Dosing 152.2 eGFR 108.81 BUN/Creatinine Ratio 7.8 L Glucose 120 H POC Glucose 215 H 110 H Calcium 8.6 Total Bilirubin 0.4 AST 22 ALT 24 Alkaline Phosphatase 56 Total Protein 6.5 Albumin 3.4 Globulin 3.1 Albumin/Globulin Ratio 1.1 Triglycerides Lipase 45 Urine Color Urine Appearance Urine pH Ur Specific [place] Urine Protein Urine Glucose (UA) Urine Ketones Urine Blood Urine Nitrite Urine Bilirubin Urine Urobilinogen Ur Leukocyte Esterase Urine WBC (Auto) Urine RBC (Auto) U Hyaline Cast (Auto) U Epithel Cells (Auto) Urine Bacteria (Auto) Diagnostic Findings Abdomen/Pelvis CT 12/16/24 16:53 EXAMINATION: Abdomen and pelvis CT with CLINICAL HISTORY: Bilateral lower abdominal pain x 3 days PRIORS: Plain film 07/06/2023 TECHNIQUE: Contiguous axial images were obtained through the abdomen and pelvis with the use of intravenous contrast. Sagittal and coronal reformations are supplied. FINDINGS: No acute abnormality in the lung bases. Hepatomegaly and fatty infiltration of the liver noted. The gallbladder is surgically absent. Portal vein, spleen, stomach, adrenals, aorta and IVC are morphologically unremarkable. Moderate peripancreatic inflammatory change noted at the level of the pancreatic head and body. Small scattered lymph nodes noted in the vicinity without pathologic enlargement. The splenic vein and gastroduodenal artery have a normal appearance. No pseudocyst, pancreatic gas or abnormal contrast enhancement of the pancreas. Fatty infiltration of the pancreatic head noted with homogeneous contrast enhancement. No ductal dilatation or calcifications. Secondary mild stomach wall thickening noted involving the pyloric antrum. The kidneys enhance symmetrically. No obstruction. Large amount of formed stool present in the colon. No dilated loops of bowel or bowel obstruction. Appendix normal in the right lower quadrant. Urinary bladder distends normally. Uterus present. No pelvic adenopathy or free fluid. In bone windows, pars defects present at L5-S1 with no significant anterolisthesis. IMPRESSION: 1. Moderate acute pancreatitis involving the pancreatic head and body with no CT features of an acute complication at this time. 2. Fatty infiltration of the liver and hepatomegaly. Electronically signed by Peri Galvan 12-16-2024 5:53 PM PG Care Time/CCT Total # of Minutes Spent Total Time Spent with Patient: Total time spent is greater than 50% in coordination of care (as documented) at patient's floor/unit and/or counseling patient: Coding Level of Care Code 27671 SUB INP/OBS CARE 3/50MIN Diagnoses Pancreatitis K85.90 Constipation K59.00 Diabetes mellitus type II, controlled E11.9 Fatty liver K76.0 Morbid obesity with BMI of 40.0-44.9, adult E66.01; Z68.41
[2024-12-17] MEDS: bisacodyL 10 MG SUPP PR STA (13:09)
[2024-12-17] MEDS ORDERED: FLUVOXAMINE 150 MG EXT SCH (15:30)
[2024-12-17] MEDS: FLUTICASONE PROPIONATE NA SPR 16 GM BTL PRN (15:39)
[2024-12-17] MEDS: MAGNESIUM CITRATE 296 ML/BTL PO STA ×2 (15:40→20:23)
[2024-12-17] MEDS: FLUVOXAMINE 150 MG EXT SCH (17:10)
[2024-12-17 19:44] VITALS: TEMP 97.7
[2024-12-17] MEDS: LACTATED RINGER'S 1,000 ML IV SCH (20:23)
[2024-12-17] MEDS ORDERED: SENNA 8.6 MG TAB PO SCH (21:00)
[2024-12-18 07:26] VITALS: BP 146/90; PULSE 82; RESP 16; O2SAT 95
[2024-12-18 07:40] LABS: Basophils # (auto) 0.04 K/uL (0.00-0.20); Basophils % (auto) 0.5 %; Eosinophils # (auto) 0.37 K/uL (0.00-0.50); Eosinophils % (auto) 4.3 %; Hematocrit (blood only) 34.2 % (37.0-47.0); Hemoglobin 11.3 g/dl (12.0-16.0); Immature Granulocytes # (auto) 0.04 K/uL (0.01-0.20); Immature Granulocytes % (auto) 0.5 %; Lymphocytes # (auto) 1.99 K/uL (1.20-3.40); Lymphocytes % (auto) 23.2 %; Mean Corpuscular Volume 84.9 fL (80.0-100.0); Neutrophils # (auto) 5.52 K/uL (1.40-6.50); Neutrophils % (auto) 64.5 %; Platelet Count 310 K/uL (130-400); RDW Coefficient of Variation 14.4 % (11.5-14.5); RDW Standard Deviation 44.6 fL (36.4-46.3); Red Blood Count 4.03 M/uL (4.20-5.40); White Blood Count 8.56 K/ul (4.8-10.8)
[2024-12-18 08:08] LABS: Albumin Level 3.5 gm/dl (3.4-5.0); BUN Creatinine Ratio 8.3 (10-20); Bilirubin,Total 0.3 mg/dl (0.2-1.0); Calcium 9.2 mg/dl (8.6-10.3); Creatinine Clr Calc Pharmacy 161.8 ml/min; Globulin 3.6 gm/dl (2.5-4.0); Potassium 4.3 mmol/L (3.5-5.1); Total Protein 7.1 gm/dl (6.0-8.3)
[2024-12-18] MEDS ORDERED: POLYETHYLENE (MIRALAX) 17 GM PACK PO SCH (09:00)
--- NOTE | 2024-12-18 10:08 | Discharge Summary ---
Discharge Summary Date of Service December 18, 2024 Principal Dx & Hospital Course #1 = Principal Diagnosis (1) Pancreatitis: (2) Constipation: (3) Diabetes mellitus type II, controlled: (4) Fatty liver: (5) Morbid obesity with BMI of 40.0-44.9, adult: Plan Patient is a 59-year-old female with past medical history of type II DM, hyperlipidemia, chronic lower extremity edema, STEWART on BiPAP, asthma, depression, essential tremor, GERD. She presented to the ED due to bilateral lower abdominal pain and constipation x [address] revealed moderate acute pancreatitis, however patient's lipase level 79, and large amount of stool in colon. Patient is being admitted for pancreatitis however suspect abd pain caused by constipation. #Abdominal pain #Constipation #Chronic GERD Patient's abdominal pain and discomfort is lower abdomen CT abdomen pelvis reviewed with patient and shows moderate acute pancreatitis, fatty infiltration of liver with hepatomegaly and large amount of formed stool in the colon with no bowel obstruction. CT also shows mild stomach wall thickening involving the pyloric antrum: She will benefit from referral to GI as outpatient through PCP for outpatient EGD Continue PPI and Pepcid Patient's lipase levels are normal Patient has no epigastric pain, no nausea and no vomiting. She is hemodynamically stable. She is afebrile Triglycerides are within normal limits at 144 She has mild leukocytosis, urine analysis negative I doubt this is pancreatitis and suspect her abdominal symptoms are related to constipation Patient was given mag citrate and Dulcolax suppository and has had multiple bowel movements with resolution of her abdominal symptoms She is tolerating oral diet without any nausea, vomiting or abdominal pain She has been advised to continue with senna and MiraLAX to at least have 2 good bowel movements a day She will follow-up with PCP as outpatient for referral to GI #Type 2 diabetes mellitus Controlled on Trulicity and metformin at home Most recent A1C 6.5% Outpatient follow-up with her own acls specialist #STEWART CPAP at bedtime #Morbid obesity, BMI of 41.3 #Fatty liver Lifestyle counseling regarding diet, exercise and weight loss provided Outpatient follow-up with PCP #Depression Continue Abilify and trazodone Patient seen and examined today. She is smiling, denies any nausea, vomiting, abdominal pain. She is tolerating oral diet and ambulating without any issues. She is medically stable for discharge I have gone over the discharge care plan, medications and follow-up with the patient in great detail and answered all her questions This discharge took greater than 30 minutes to coordinate Admission HPI Per Admitting Provider Patient is a 59-year-old female with past medical history of type II DM, hyperlipidemia, chronic lower extremity edema, STEWART on BiPAP, asthma, depression, essential tremor, GERD. She presented to the ED due to bilateral lower abdominal pain, bloating, and nausea x [address] revealed moderate acute pancreatitis, however patient's lipase level 79. Patient is being admitted for pancreatitis. Patient seen at bedside. He stated that since Sunday she has had constant lower abdominal pain that was 6/10 upon arrival to ED, currently 2/10 after morphine 4 Mg IV in ED. She also endorses constipation as she typically has 3 bowel movements per day and has only had 1/day since Sunday. She does endorse melena however has been taking Pepto-Bismol and Lucretia-Buckley all weekend. She takes 2 stool softeners daily at baseline. She denies any history of chambers creatitis. she denies a history of chronic alcohol use; she only has approximately once per month with her friends, no history of daily use. She has no history of recent gallstones, had her gallbladder removed previously. She has been on the same dose of Trulicity for several years, she has her injection on Saturdays. Patient denies fever, chills, nausea, vomiting, dysuria, hematuria, edema. She does not use nicotine products. She uses BiPAP at bedtime. Discharge Exam General: No acute distress Psych: Awake and alert, oriented x 3 HEENT: Anicteric sclera, moist oral mucosa CVS: Regular rate and rhythm Lungs: Bilateral air entry, no wheezing noted Abdomen: Soft, nontender, obese abdomen, no rebound, no guarding Ext: No lower extremity edema, no calf tenderness Neuro: No focal motor deficits noted Discharge Plan Discharge Items Patient Disposition: Home - Self-Care Reason For Visit: PANCREATITIS Discharge Diagnosis: #Constipation #Chronic GERD #Type 2 diabetes mellitus #STEWART #Morbid obesity, BMI of 41.3 #Fatty liver #Depression Activity: Resume your previous activity Non-emergency contact: Primary Care Provider Call non-emergency contact if: you have any medication questions, your symptoms worsen, your pain is worsening and you have a fever Follow-up/Referrals: Marcelino Webber MD [Primary Care Provider] - 12/25/24 11:00 am Brandon Chandler PA-C [Physician Sawdust Machine Operator] - Diet: Carb Consistent or DM2 and Heart Healthy Addtl Attending Provider Instructions: DISCHARGE INSTRUCTION TO PATIENT/FAMILY: Follow-up with your primary care provider within 1 week regarding: Posthospital discharge, medication review, medication refills and follow-up on all your medical problems Please take all your discharge medications, discharge information and discharge instructions to all your doctors appointments. Avoid all NSAIDs including ibuprofen, Motrin, Advil, Aleve, naproxen, meloxicam, Toradol, diclofenac since you have chronic GERD. You had a CT abdomen pelvis done during hospital stay. CAT scan showed mild stomach wall thickening. Please see your PCP for referral to equipment installer as outpatient for further investigations including EGD as outpatient CAT scan of abdomen and pelvis also showed you had fatty liver. Please follow- up with your PCP regarding this. Urine culture was sent on admission from emergency room on 12/16/2024: Results are still pending, please follow-up with or call your PCP to obtain results of urine culture CT Abdomen showed signs of Pancreatitis, although your symptoms were not consistent with pancreatitis. This maybe related to Trulicity. Please see your Purchasing And Claims Supervisor about continuing Trulicity Stop Celebrex due to having reflux. Please follow up with PCP Labs through PCP in 1 to 2 weeks: CBC, CMP, MG, VITAMIN D Pending Studies at Discharge: Yes Studies:: Urine culture from 12/16/2024 Stand-Alone Forms: My [facility] tado, Smoking Cessation Medications and DC Order Prescriptions: New polyethylene glycol 3350 [Miralax] 17 gram Powder In Packet 17 g PO DAILY Qty: 14 0RF Rx Instructions: HOLD FOR MORE THAN 2 BOWEL MOVEMENTS IN 24 HOURS, AVAILABLE OVER THE COUNTER sennosides [Senokot] 8.6 mg Tablet 17.2 mg PO HS Qty: 14 0RF Rx Instructions: HOLD FOR MORE THAN 2 BOWEL MOVEMENTS IN 24 HOURS, AVAILABLE OVER THE COUNTER Continued fexofenadine [Brook Allergy] 180 mg tablet 180 mg PO DAILY aripiprazole 15 mg tablet 15 mg PO DAILY omega-3 fatty acids 500 mg capsule 1,000 mg PO DAILY (DME) [facility] Instructions .Route Qty: 1 0RF Rx Instructions: As directed atorvastatin 40 mg tablet 40 mg PO QPM Qty: 90 3RF meclizine 25 mg tablet 25 mg PO DAILY PRN (Reason: dizziness) Qty: 90 1RF primidone 250 mg tablet 250 mg PO TID 90 Days Qty: 270 3RF fluticasone propion-salmeterol [Advair Diskus] 500-50 mcg/dose blister with device 1 inh inhalation BID Qty: 3 3RF albuterol sulfate 90 mcg/actuation HFA aerosol inhaler 1 puff INH Q4H PRN (Reason: shortness of breath or wheezing) Qty: 3 3RF famotidine 40 mg tablet 40 mg PO DAILY 90 Days Qty: 90 3RF fluticasone propionate 50 mcg/actuation spray,suspension 1 spray intranasal Q12H PRN (Reason: nasal congestion) Qty: 3 3RF Rx Instructions: administer into each nostril (DME) OneTouch Verio test strips Strip See Rx Instructions .ROUTE .MEDSUPPLY Qty: 100 3RF Rx Instructions: Test once daily metformin 500 mg tablet 1,000 mg PO BID Qty: 360 3RF (DME) lancets 33 gauge misc See Rx Instructions .ROUTE .MEDSUPPLY Qty: 100 3RF Rx Instructions: Test blood sugars 1 times a day. OneTouch Delica gabapentin 300 mg capsule 300 mg PO QID Qty: 360 1RF Rx Instructions: TOTAL DOSE 900 MG--TAKES WITH 600 MG CAP. cinnamon bark [Cinnamon] 500 mg capsule 1,000 mg PO DAILY venlafaxine 75 mg tablet 225 mg PO DAILY Rx Instructions: TAKES 3 TABS. B12 Active 1,000 mcg tablet,chewable 2,000 mcg PO DAILY Qty: 30 0RF fluvoxamine 150 mg capsule,extended release 24hr 150 mg PO DAILY trazodone 50 mg tablet 50 mg PO HS PRN (Reason: Sleep) Rx Instructions: PER PT "TAKE ALMOST EVERY HS". Nemluvio 30 mg pen injector 30 mg SUBCUT MONTHLY Rx Instructions: TAKES AT THE END OF THE MONTH gabapentin 600 mg tablet 600 mg PO QID Rx Instructions: TOTAL DOSE 900 MG--TAKES WITH 300 MG CAP. miconazole nitrate 2 % cream 1 applic topical BID PRN (Reason: Skin Irritation) esomeprazole magnesium 40 mg capsule,delayed release(DR/EC) 40 mg PO DAILY Rx Instructions: TAKE 1 CAPSULE DAILY clotrimazole-betamethasone 1-0.05 % cream 1 applic topical BID PRN (Reason: Skin Irritation) nystatin-triamcinolone 100,000-0.1 unit/g-% cream 1 applic topical BID PRN (Reason: Skin Irritation) nystatin 100,000 unit/gram powder 1 applic topical DAILY PRN (Reason: Skin Irritation) triamcinolone acetonide 0.1 % lotion 1 applic topical DAILY PRN (Reason: Skin Irritation) cholecalciferol (vitamin D3) 1,000 unit capsule 3,000 units PO WK Rx Instructions: SUNDAYS dulaglutide 3 mg/0.5 mL pen injector 3 mg subcut WK Rx Instructions: SATURDAYS Changed furosemide 20 mg tablet 20 mg PO DAILY PRN (Reason: LEG SWELLING) Qty: 90 3RF Held celecoxib 200 mg capsule 200 mg PO DAILY Hold Instructions: Resume on 12/25/24. follow up with your PCP regarding discussion about being on Celebrex given reflux symptoms Rx Instructions: TAKE 1 CAPSULE BY MOUTH ONCE DAILY Discharge Orders: Discharge Order (Routine); Ordered 12/18/24 Ordered By: Zacarias Delatorre/Other Patient Handouts: Treating Constipation Admission Data Admit Date/Time: 12/16/24 20:05 Attending Provider: Zacarias Hines Admit Provider: Bharath Cordero Primary Care Provider: Marcelino Webber Other Providers: Bharath Cordero Other Interventions: Discharge Summary Assessment (RN) Last Done: 12/18/24 10:13 Hospital Stay Data Consultations 12/16/24 19:23 ED Decision to Admit Stat Diagnostic Imagining Performed 12/16/24 16:53 CT abd pelvis IV con only Stat Abdomen/Pelvis CT 12/16/24 16:53 EXAMINATION: Abdomen and pelvis CT with CLINICAL HISTORY: Bilateral lower abdominal pain x 3 days PRIORS: Plain film 07/06/2023 TECHNIQUE: Contiguous axial images were obtained through the abdomen and pelvis with the use of intravenous contrast. Sagittal and coronal reformations are supplied. FINDINGS: No acute abnormality in the lung bases. Hepatomegaly and fatty infiltration of the liver noted. The gallbladder is surgically absent. Portal vein, spleen, stomach, adrenals, aorta and IVC are morphologically unremarkable. Moderate peripancreatic inflammatory change noted at the level of the pancreatic head and body. Small scattered lymph nodes noted in the vicinity without pathologic enlargement. The splenic vein and gastroduodenal artery have a normal appearance. No pseudocyst, pancreatic gas or abnormal contrast enhancement of the pancreas. Fatty infiltration of the pancreatic head noted with homogeneous contrast enhancement. No ductal dilatation or calcifications. Secondary mild stomach wall thickening noted involving the pyloric antrum. The kidneys enhance symmetrically. No obstruction. Large amount of formed stool present in the colon. No dilated loops of bowel or bowel obstruction. Appendix normal in the right lower quadrant. Urinary bladder distends normally. Uterus present. No pelvic adenopathy or free fluid. In bone windows, pars defects present at L5-S1 with no significant anterolisthesis. IMPRESSION: 1. Moderate acute pancreatitis involving the pancreatic head and body with no CT features of an acute complication at this time. 2. Fatty infiltration of the liver and hepatomegaly. Electronically signed by Peri Galvan 12-16-2024 5:53 PM Laboratory Results - last 48 hr 12/16/24 12/16/24 12/16/24 14:45 21:12 Unknown WBC 14.01 H RBC 4.47 Hgb 12.4 Hct 37.8 MCV 84.6 MCH 27.7 MCHC 32.8 RDW Std Deviation 44.9 RDW Coeff of Evelyn 14.6 H Plt Count 336 MPV 9.0 L Immature Gran % (Auto) 0.4 Neut % (Auto) 73.4 Lymph % (Auto) 16.2 [place] % (Auto) 6.9 Eos % (Auto) 2.8 Baso % (Auto) 0.3 Neut # (Auto) 10.29 H Lymph # (Auto) 2.27 [place] # (Auto) 0.96 H Eos # (Auto) 0.39 Baso # (Auto) 0.04 Immature Gran # (Auto) 0.06 Sodium 131 L Potassium 4.3 Chloride 91 L Carbon Dioxide 33 H Anion Gap 7 BUN 5 L Creatinine 0.54 L Est Cr Clr Drug Dosing Not Reportable eGFR 107.32 BUN/Creatinine Ratio 9.3 L Glucose 119 H POC Glucose 102 H Calcium 9.2 Magnesium Total Bilirubin 0.4 AST 26 ALT 30 Alkaline Phosphatase 66 Total Protein 7.9 Albumin 4.1 Globulin 3.8 Albumin/Globulin Ratio 1.1 Triglycerides 144 Lipase 79 Urine Color Yellow Urine Appearance Clear Urine pH 8.5 H Ur Specific [place] 1.005 Urine Protein Negative Urine Glucose (UA) Negative Urine Ketones Negative Urine Blood Negative Urine Nitrite Negative Urine Bilirubin Negative Urine Urobilinogen Negative Ur Leukocyte Esterase 2+ H Urine WBC (Auto) 11-20 H Urine RBC (Auto) 0-2 U Hyaline Cast (Auto) 0-2 U Epithel Cells (Auto) 0-2 Urine Bacteria (Auto) None Seen 12/17/24 12/17/24 12/17/24 04:32 08:48 11:23 WBC 11.31 H RBC 3.84 L Hgb 10.9 L Hct 33.1 L MCV 86.2 MCH 28.4 MCHC 32.9 RDW Std Deviation 46.8 H RDW Coeff of Evelyn 14.8 H Plt Count 293 MPV 9.1 L Immature Gran % (Auto) 0.4 Neut % (Auto) 67.0 Lymph % (Auto) 19.1 [place] % (Auto) 9.3 Eos % (Auto) 3.9 Baso % (Auto) 0.3 Neut # (Auto) 7.58 H Lymph # (Auto) 2.16 [place] # (Auto) 1.05 H Eos # (Auto) 0.44 Baso # (Auto) 0.03 Immature Gran # (Auto) 0.05 Sodium 133 L Potassium 4.7 Chloride 96 L Carbon Dioxide 32 Anion Gap 5 BUN 4 L Creatinine 0.51 L Est Cr Clr Drug Dosing 152.2 eGFR 108.81 BUN/Creatinine Ratio 7.8 L Glucose 120 H POC Glucose 215 H 110 H Calcium 8.6 Magnesium Total Bilirubin 0.4 AST 22 ALT 24 Alkaline Phosphatase 56 Total Protein 6.5 Albumin 3.4 Globulin 3.1 Albumin/Globulin Ratio 1.1 Triglycerides Lipase 45 Urine Color Urine Appearance Urine pH Ur Specific [place] Urine Protein Urine Glucose (UA) Urine Ketones Urine Blood Urine Nitrite Urine Bilirubin Urine Urobilinogen Ur Leukocyte Esterase Urine WBC (Auto) Urine RBC (Auto) U Hyaline Cast (Auto) U Epithel Cells (Auto) Urine Bacteria (Auto) 12/17/24 12/17/24 12/18/24 16:31 20:20 07:13 WBC 8.56 RBC 4.03 L Hgb 11.3 L Hct 34.2 L MCV 84.9 MCH 28.0 MCHC 33.0 RDW Std Deviation 44.6 RDW Coeff of Evelyn 14.4 Plt Count 310 MPV 9.0 L Immature Gran % (Auto) 0.5 Neut % (Auto) 64.5 Lymph % (Auto) 23.2 [place] % (Auto) 7.0 Eos % (Auto) 4.3 Baso % (Auto) 0.5 Neut # (Auto) 5.52 Lymph # (Auto) 1.99 [place] # (Auto) 0.60 H Eos # (Auto) 0.37 Baso # (Auto) 0.04 Immature Gran # (Auto) 0.04 Sodium 134 L Potassium 4.3 Chloride 95 L Carbon Dioxide 34 H Anion Gap 5 BUN 4 L Creatinine 0.48 L Est Cr Clr Drug Dosing 161.8 eGFR 110.41 BUN/Creatinine Ratio 8.3 L Glucose 131 H POC Glucose 152 H 110 H Calcium 9.2 Magnesium 2.0 Total Bilirubin 0.3 AST 29 ALT 27 Alkaline Phosphatase 74 Total Protein 7.1 Albumin 3.5 Globulin 3.6 Albumin/Globulin Ratio 1.0 Triglycerides Lipase Urine Color Urine Appearance Urine pH Ur Specific [place] Urine Protein Urine Glucose (UA) Urine Ketones Urine Blood Urine Nitrite Urine Bilirubin Urine Urobilinogen Ur Leukocyte Esterase Urine WBC (Auto) Urine RBC (Auto) U Hyaline Cast (Auto) U Epithel Cells (Auto) Urine Bacteria (Auto) 12/18/24 07:41 WBC RBC Hgb Hct MCV MCH MCHC RDW Std Deviation RDW Coeff of Evelyn Plt Count MPV Immature Gran % (Auto) Neut % (Auto) Lymph % (Auto) [place] % (Auto) Eos % (Auto) Baso % (Auto) Neut # (Auto) Lymph # (Auto) [place] # (Auto) Eos # (Auto) Baso # (Auto) Immature Gran # (Auto) Sodium Potassium Chloride Carbon Dioxide Anion Gap BUN Creatinine Est Cr Clr Drug Dosing eGFR BUN/Creatinine Ratio Glucose POC Glucose 134 H Calcium Magnesium Total Bilirubin AST ALT Alkaline Phosphatase Total Protein Albumin Globulin Albumin/Globulin Ratio Triglycerides Lipase Urine Color Urine Appearance Urine pH Ur Specific [place] Urine Protein Urine Glucose (UA) Urine Ketones Urine Blood Urine Nitrite Urine Bilirubin Urine Urobilinogen Ur Leukocyte Esterase Urine WBC (Auto) Urine RBC (Auto) U Hyaline Cast (Auto) U Epithel Cells (Auto) Urine Bacteria (Auto) 12/16/24 Unknown Urine Culture - Preliminary Urine,Clean Catch Pin-point growth present, reincubating. 12/18/24 12/18/24 12/17/24 07:41 07:13 20:20 WBC 8.56 RBC 4.03 L Hgb 11.3 L Hct 34.2 L MCV 84.9 MCH 28.0 MCHC 33.0 RDW Std Deviation 44.6 RDW Coeff of Evelyn 14.4 Plt Count 310 MPV 9.0 L Immature Gran % (Auto) 0.5 Neut % (Auto) 64.5 Lymph % (Auto) 23.2 [place] % (Auto) 7.0 Eos % (Auto) 4.3 Baso % (Auto) 0.5 Neut # (Auto) 5.52 Lymph # (Auto) 1.99 [place] # (Auto) 0.60 H Eos # (Auto) 0.37 Baso # (Auto) 0.04 Immature Gran # (Auto) 0.04 Sodium 134 L Potassium 4.3 Chloride 95 L Carbon Dioxide 34 H Anion Gap 5 BUN 4 L Creatinine 0.48 L Est Cr Clr Drug Dosing 161.8 eGFR 110.41 BUN/Creatinine Ratio 8.3 L Glucose 131 H POC Glucose 134 H 110 H Calcium 9.2 Magnesium 2.0 Total Bilirubin 0.3 AST 29 ALT 27 Alkaline Phosphatase 74 Total Protein 7.1 Albumin 3.5 Globulin 3.6 Albumin/Globulin Ratio 1.0 12/17/24 12/17/24 16:31 11:23 WBC RBC Hgb Hct MCV MCH MCHC RDW Std Deviation RDW Coeff of Evelyn Plt Count MPV Immature Gran % (Auto) Neut % (Auto) Lymph % (Auto) [place] % (Auto) Eos % (Auto) Baso % (Auto) Neut # (Auto) Lymph # (Auto) [place] # (Auto) Eos # (Auto) Baso # (Auto) Immature Gran # (Auto) Sodium Potassium Chloride Carbon Dioxide Anion Gap BUN Creatinine Est Cr Clr Drug Dosing eGFR BUN/Creatinine Ratio Glucose POC Glucose 152 H 110 H Calcium Magnesium Total Bilirubin AST ALT Alkaline Phosphatase Total Protein Albumin Globulin Albumin/Globulin Ratio Pending Results Patient Have Any Pending Studies at Discharge: Yes Discharge Instructions Given to Patient (Per Discharging Provider) DISCHARGE INSTRUCTION TO PATIENT/FAMILY: Follow-up with your primary care provider within 1 week regarding: Posthospital discharge, medication review, medication refills and follow-up on all your medical problems Please take all your discharge medications, discharge information and discharge instructions to all your doctors appointments. Avoid all NSAIDs including ibuprofen, Motrin, Advil, Aleve, naproxen, meloxicam, Toradol, diclofenac since you have chronic GERD. You had a CT abdomen pelvis done during hospital stay. CAT scan showed mild stomach wall thickening. Please see your PCP for referral to equipment installer as outpatient for further investigations including EGD as outpatient CAT scan of abdomen and pelvis also showed you had fatty liver. Please follow- up with your PCP regarding this. Urine culture was sent on admission from emergency room on 12/16/2024: Results are still pending, please follow-up with or call your PCP to obtain results of urine culture CT Abdomen showed signs of Pancreatitis, although your symptoms were not consistent with pancreatitis. This maybe related to Trulicity. Please see your Purchasing And Claims Supervisor about continuing Trulicity Stop Celebrex due to having reflux. Please follow up with PCP Labs through PCP in 1 to 2 weeks: CBC, CMP, MG, VITAMIN D Total Time Total Time Spent Total Time Spent (In Minutes): 36 Coding Level of Care Code 70490 INP/OBS DISCH >30 MIN Diagnoses Pancreatitis K85.90 Constipation K59.00 Diabetes mellitus type II, controlled E11.9 Fatty liver K76.0 Morbid obesity with BMI of 40.0-44.9, adult E66.01; Z68.41
== END 2024-12-18 11:15 | disposition home or self-care (01) | DRG 391 ==
LOC: ED 14:08 → SUATTDRO 20:05 → EDINP 20:05 → 3W 20:41